=== PATIENT | female | born 1985 | race Caucasian/White ===

== ENCOUNTER 2020-06-27 11:57 | Emergency (ER) | payer OTHER, SELFPAY ==
[2020-06-27 12:05] VITALS: BP 126/82; PULSE 95
[2020-06-27 12:12] VITALS: BP 124/70; PULSE 88; RESP 18; TEMP 37.1; O2SAT 96; BMI 24.0
--- NOTE | 2020-06-27 12:15 | ED.PSYCH ---
HPI - Psych General Chief Complaint: Psychiatric Symptoms Stated Complaint: crisis Time Seen by Provider: 06/27/20 12:07 Source: EMS Mode of arrival: EMS Limitations: no limitations History of Present Illness HPI Narrative: 31-year-old female who reports history of anxiety and depression who was feeling increasingly depressed and suicidal for weeks ago at that time made Facebook post on her status in regards to this 4 weeks ago and at that time she felt like she was going to stab herself but she did not instead she called the crisis team which she is familiar with and at that time she was sent to respite she has been doing well at home today she noticed that somebody was making fun of her status on Facebook and she confronted individuals online and she states that this was interpreted as her being suicidal today which she is not given today is [place]. She states occasional alcohol use but no illicit substance. Denies any suicidal ideations at this time. She does report has a habit of cutting for stress relief and usually is in lines of scratching with her nails either her in her wrist or connor area. States she has not done this in several weeks. States has not attempted anything else to harm herself. complaint: anxiety Onset (ago): day(s) Relieving factors: none Exacerbating factors: other (Social media) Associated psychiatric symptoms: none Treatments prior to arrival: none Related Data Allergies Allergy/AdvReac Type Severity Reaction Status Date / Time fluconazole [Diflucan] Allergy Unknown rash Verified 12/04/18 00:00 No Known Allergies Allergy Unverified 12/11/19 15:47 Review of Systems Review of Systems: Constitutional: No Weight loss, No Fever, No Chills, No Night Sweats, No Fatigue, No Malaise ENT/Mouth: No Hearing loss, No Ear Pain, No Nasal Congestion, No Sinus Pain, No Hoarseness, No sore throat, No Rhinorrhea, No Swallowing Difficulty Eyes: No Eye Pain, No Swelling, No Redness, No Foreign Body, No Discharge, No Vision Changes Cardiovascular: No Chest Pain, No SOB, No Dyspnea on Exertion, No Orthopnea, No Edema, No Palpitations Respiratory: No Cough, No Sputum, No Wheezing, No Smoke Exposure, No Dyspnea Gastrointestinal: No Nausea, No Vomiting, No Diarrhea, No Constipation, No abdominal Pain, No Hematochezia, No Melena Genitourinary: no irregular bleeding, No Dysuria, No Urinary Frequency, No Hematuria, No Urinary Incontinence, No Urgency, No Flank Pain, No Urinary Flow Changes, No Hesitancy Musculoskeletal: No joint pain, No Myalgias, No Joint Swelling Skin: No Skin Lesions, No rash Neuro: No Weakness, No Numbness, No Paresthesias, No Loss of Consciousness, No Dizziness, No Headache Psych: + Anxiety/Panic, No Depression, No SI/HI/AH/VH Heme/Lymph: No Bruising, No Bleeding,No Lymphadenopathy Endocrine: No Polyuria, No Polydipsia, No Temperature Intolerance Yes all other systems are reviewed and are negative [facility] Past Medical History Medical History Anxiety Depression Social History Social History Alcohol intake: current Smoking Status: Current every day smoker Use of substances other than those prescribed or required for medical reasons: No Advance Directives: No Advance Directives Information Provided: No Physical Exam Vital Signs: Vital Signs: Last Vital Signs Temp 98.7 F 06/27/20 12:12 Pulse 88 06/27/20 12:12 Resp 18 06/27/20 12:12 BP 124/70 06/27/20 12:12 Pulse Ox 96 06/27/20 12:12 Body Mass Index 24.0 Reviewed Const: General: cooperative, healthy appearing and anxious; No acute distress or intoxicated appearing Nutritional Appearance: average body habitus Orientation/consciousness: patient oriented x3 HENMT: Head: Yes normal to inspection Ears: hearing grossly normal bilaterally Eyes: General: appearance normal, both eyes and all related structures Visual Zamora: normal visual zamora by confrontation Neck: Neck: Yes normal visual inspection, No positive Brudzinski's sign, No positive Kernig's sign and No tender Thyroid: Thyroid normal Chest: Chest palpation & inspection: normal inspection of the chest Resp: Effort & Inspection: normal respiratory effort Auscultation: clear to auscultation bilaterally Cardio: Jugular venous distension: no JVD Rhythm: regular rhythm Heart sounds: S1 normal heart sound present and S2 normal heart sound present GI: Inspection: Yes normal to inspection Palpation (GI): Soft to palpation Percussion: Yes normal to percussion Auscultation: normal bowel sounds : General: Yes no CVA tenderness Back/Spine/Pelvis: Back: no CVA tenderness Skin: General skin exam: no rashes or lesions noted Neuro: General: patient oriented x3 Extrem: General: Yes normal to inspection Course Reevaluation(s) Reevaluation #1: 1211 Tearful and regretful that this is happening to her given today's Easter and she had plans with her boyfriend. She denies any SI or HI. States she was suicidal in the past when she made those statements 4 weeks ago on Facebook and today her statements were misinterpreted. She is familiar with the crisis team. She is tearful and calm and cooperative forthcoming. Given this and her history will go ahead and do medical screening labs and obtain crisis evaluation. She offers no medical complaints. Plan of care reviewed and agreeable. Reevaluation #2: U tox positive for opiate, cocaine and ethanol of 32. Chemistries with nonspecific hyperkalemia at 10.5 she offers no other complaints. Has been sleeping resting comfortably. Eight. Cleared for psychiatric evaluation. 1530 At this time patient placed on physician observation pending crisis evaluation. VSs, NAD, PVD. Com cooperative. Reevaluation #3: Evaluate by the care team set up with outpatient services. Cleared for discharge. No SI or HI. Physician observation has ended at this time. Patient will be set up with outpatient services she is comfortable with plan. Denies any SI or HI she is future oriented. Stable for discharge. MDM - Psych Lab Data Result diagrams: 06/27/20 12:55 06/27/20 12:55 Labs: Lab Results 06/27/20 06/27/20 06/27/20 Range/Units 12:55 12:55 12:55 WBC 7.3 (4.8-10.8) X10*3/uL RBC 4.28 (4.20-5.50) X10*6/uL Hgb 13.0 (12.0-16.0) g/dl Hct 37.9 (37-47) % MCV 88.6 (80-98) fL MCH 30.4 (27.0-33.0) pg MCHC 34.3 (31.0-35.0) g/dl RDW 13.2 (11.0-16.0) % Plt Count 375 (160-400) X10*3/uL MPV 9.4 (9.4-12.3) fL Immature Gran % (Auto) 0.3 (0.0-0.4) % Neut % (Auto) 68.1 (45-73) % Lymph % (Auto) 21.5 (20-40) % [place] % (Auto) 7.0 (2-11) % Eos % (Auto) 2.6 (0-4) % Baso % (Auto) 0.5 (0-2) % Lymph # (Auto) 1.6 (1.2-4.9) X10*3/uL [place] # (Auto) 0.5 (0.1-1.2) X10*3/uL Eos # (Auto) 0.2 (0.0-0.4) X10*3/uL Baso # (Auto) 0.0 (0.0-0.2) X10*3/uL Abs Immat Gran (auto) 0.02 (0.00-0.03) X10*3/uL Absolute Neuts (auto) 5.0 (2.0-8.3) X10*3/uL Absolute Nucleated RBC 0.000 (0.0-0.012) X10*3/uL Nucleated RBC % (auto) 0.0 (0.0-0.2) /100WBC Sodium 137 (135-145) mmol/L Potassium 3.6 (3.3-5.1) mmol/L Chloride 91 L (96-108) mmol/L Carbon Dioxide 36 H (22-29) mmol/L Anion Gap 14 (12-20) BUN 4 L (9-16) mg/dL Creatinine 0.65 (0.5-1.4) mg/dL Estim Creat Clear Calc 106.3 Estimated GFR > 60 Random Glucose 117 H (60-115) mg/dL Calcium 10.5 H (8.4-10.2) mg/dL Total Bilirubin 0.2 (0.0-1.0) mg/dL AST 25 (5-31) U/L ALT 26 (0-31) U/L Alkaline Phosphatase 117 (39-117) U/L Total Protein 6.1 L (6.5-8.0) g/dL Albumin 3.7 (3.5-5.0) g/dL Urine Test (NEGATIVE) Urine Opiates Screen (Not Detect) Ur Barbiturates Screen (Not Detect) Ur Phencyclidine Scrn (Not Detect) Ur Amphetamines Screen (Not Detect) U Benzodiazepines Scrn (Not Detect) Urine Cocaine Screen (Not Detect) U Marijuana (THC) Screen (Not Detect) Ethyl Alcohol 32 mg/dL 06/27/20 06/27/20 Range/Units 12:55 12:55 WBC (4.8-10.8) X10*3/uL RBC (4.20-5.50) X10*6/uL Hgb (12.0-16.0) g/dl Hct (37-47) % MCV (80-98) fL MCH (27.0-33.0) pg MCHC (31.0-35.0) g/dl RDW (11.0-16.0) % Plt Count (160-400) X10*3/uL MPV (9.4-12.3) fL Immature Gran % (Auto) (0.0-0.4) % Neut % (Auto) (45-73) % Lymph % (Auto) (20-40) % [place] % (Auto) (2-11) % Eos % (Auto) (0-4) % Baso % (Auto) (0-2) % Lymph # (Auto) (1.2-4.9) X10*3/uL [place] # (Auto) (0.1-1.2) X10*3/uL Eos # (Auto) (0.0-0.4) X10*3/uL Baso # (Auto) (0.0-0.2) X10*3/uL Abs Immat Gran (auto) (0.00-0.03) X10*3/uL Absolute Neuts (auto) (2.0-8.3) X10*3/uL Absolute Nucleated RBC (0.0-0.012) X10*3/uL Nucleated RBC % (auto) (0.0-0.2) /100WBC Sodium (135-145) mmol/L Potassium (3.3-5.1) mmol/L Chloride (96-108) mmol/L Carbon Dioxide (22-29) mmol/L Anion Gap (12-20) BUN (9-16) mg/dL Creatinine (0.5-1.4) mg/dL Estim Creat Clear Calc Estimated GFR Random Glucose (60-115) mg/dL Calcium (8.4-10.2) mg/dL Total Bilirubin (0.0-1.0) mg/dL AST (5-31) U/L ALT (0-31) U/L Alkaline Phosphatase (39-117) U/L Total Protein (6.5-8.0) g/dL Albumin (3.5-5.0) g/dL Urine Test NEGATIVE (NEGATIVE) Urine Opiates Screen POSITIVE H (Not Detect) Ur Barbiturates Screen Not Detected (Not Detect) Ur Phencyclidine Scrn Not Detected (Not Detect) Ur Amphetamines Screen Not Detected (Not Detect) U Benzodiazepines Scrn Not Detected (Not Detect) Urine Cocaine Screen POSITIVE H (Not Detect) U Marijuana (THC) Screen Not Detected (Not Detect) Ethyl Alcohol mg/dL Discharge Plan Discharge Clinical Impression: Acute anxiety Alcohol intoxication Qualifiers: Complication of substance-induced condition: uncomplicated Qualified Code(s): F10.920 - Alcohol use, unspecified with intoxication, uncomplicated Patient Disposition: Home, Self-Care Instructions: Alcohol Intoxication (ED), Anxiety (ED) Additional Instructions: Follow-up with outpatient providers tomorrow Return if any concerns or worsening symptoms Thank you Referrals: Carlee Dubois MD [Primary Care Provider] - 2 days
--- NOTE | 2020-06-27 12:33 | PC.NURSE ---
PATIENT BELONGINGS IN LAUNDRY ROOM
--- NOTE | 2020-06-27 12:49 | PC.NURSE ---
faxed and called [facility]
[2020-06-27 13:04] LABS: MANUAL DIFF FLAG NO
[2020-06-27 13:14] LABS: Basophils Percent Auto 0.5 % (0-2); Eosinophils Absolute Auto 0.2 X10*3/uL (0.0-0.4); Eosinophils Percent Auto 2.6 % (0-4); Hematocrit 37.9 % (37-47); Imm Gran Abs Auto 0.02 X10*3/uL (0.00-0.03); Imm Gran Pct Auto 0.3 % (0.0-0.4); Lymphocytes Absolute Auto 1.6 X10*3/uL (1.2-4.9); Lymphocytes Percent Auto 21.5 % (20-40); Mean Corpuscular HGB Conc 34.3 g/dl (31.0-35.0); Mean Corpuscular Hemoglobin 30.4 pg (27.0-33.0); Mean Corpuscular Volume 88.6 fL (80-98); Mean Platelet Volume 9.4 fL (9.4-12.3); Monocytes Absolute Auto 0.5 X10*3/uL (0.1-1.2); Neutrophils Percent Auto 68.1 % (45-73); Platelet Count 375 X10*3/uL (160-400); Red Blood Count 4.28 X10*6/uL (4.20-5.50); Red Cell Distribution Width 13.2 % (11.0-16.0); White Blood Count 7.3 X10*3/uL (4.8-10.8)
[2020-06-27 13:20] LABS: UPreg QC Valid YES; Urine Pregnancy NEGATIVE (NEGATIVE)
[2020-06-27 13:24] LABS: Ethanol 32 mg/dL
[2020-06-27 13:26] LABS: Amphetamine Screen Urine Not Detected (Not Detect); Barbiturates, Urine Not Detected (Not Detect); Benzodiazepines Screen Urine Not Detected (Not Detect); Cannabinoid Screen Urine Not Detected (Not Detect); Cocaine Screen Urine POSITIVE (Not Detect); Opiate Screen Urine POSITIVE (Not Detect); Phencyclidine Screen Urine Not Detected (Not Detect)
[2020-06-27 14:02] LABS: Alanine Aminotransferase 26 U/L (0-31); Albumin Level 3.7 g/dL (3.5-5.0); Alkaline Phosphatase 117 U/L (39-117); Anion Gap 14 (12-20); Aspartate Amino Transferase 25 U/L (5-31); Bilirubin Total 0.2 mg/dL (0.0-1.0); Blood Urea Nitrogen 4 mg/dL (9-16); Carbon Dioxide 36 mmol/L (22-29); Chloride 91 mmol/L (96-108); Creatinine Clr Calc Pharmacy 106.3; Estimated Glomerular Filt Rate > 60; Glucose Random 117 mg/dL (60-115); Potassium 3.6 mmol/L (3.3-5.1); Sodium 137 mmol/L (135-145); Total Protein 6.1 g/dL (6.5-8.0)
[2020-06-27 14:08] LABS: Calcium 10.5 mg/dL (8.4-10.2)
[2020-06-27 16:00] VITALS: RESP 16
--- NOTE | 2020-06-27 16:15 | PC.NURSE ---
awaiting n intake to call back per guy they now have pt info after x 4 fax confirmations
--- NOTE | 2020-06-27 16:38 | PC.NURSE ---
spoke with [facility], wandy states this was intake and will call back with possible eta for eval
--- NOTE | 2020-06-27 17:46 | MHC.CARE ---
CARE team contacted [facility] to follow up on referral faxed earlier this afternoon for pt who was brought to ED for concerns of suicidality. [facility] unable to provide a clinician for evaluation until 3rd shift, therefore this became a CARE team takeover. This senior grant writer met with pt in ED 22H. Pt was tearful and expressing frustration with being in the ED all afternoon after wanting to spend Easter with her boyfriend and to be able to call her children. Pt reported that she had learned that people were making fun of her a few weeks ago when she expressed that she was feeling low and suicidal, and made a status on social media this morning about not appreciating being made fun of when she's at her lowest low and feeling suicidal. Pt stated that this wasn't how she is feeling currently and that she was reflecting on her state of mind at that time. Pt reported that she had been in detox and from detox she went to respite after contacting [facility] endorsing active suicidality with plan to cut self with scissors. After respite, pt went to a short term [facility] program and has since returned home. Pt relapsed shortly after and is currently planning to self present to [facility] to check self in for another admission. Pt stated that she lives with her boyfriend who is almost 4 years clean, that he is aware of the relapse, and is supportive of pt getting treatment and into recovery. Pt denied experiencing any current thoughts of suicide, however she was having passive thoughts 2 days ago after she got stuck in (my) own head. Pt feels safe to return home and is advocating for discharge so that she can spend some of Easter with her family. This senior grant writer consulted with ED provider re: assessment, with plan of care for discharge home and plan to follow up with [facility] in the morning.
--- NOTE | 2020-06-27 17:59 | PC.NURSE ---
spoke with care team, pt to fl home
== END 2020-06-27 18:01 | disposition home or self-care (01) ==
PROVIDERS: Nurse Practitioner Primary Care; Emergency Provider Internal Medicine; PCP Internal Medicine
DX: F41.9 Anxiety disorder, unspecified (principal); F10.920 Alcohol use, unspecified with intoxication, uncomplicated; Y90.1 Blood alcohol level of 20-39 mg/100 ml; F32.9 Major depressive disorder, single episode, unspecified; R45.851 Suicidal ideations; F17.200 Nicotine dependence, unspecified, uncomplicated; F11.90 Opioid use, unspecified, uncomplicated; F14.90 Cocaine use, unspecified, uncomplicated; Z91.5 Personal history of self-harm
CPT/HCPCS: 36415; 80053; 80307; 80320; 81025; 85025; 99285

== ENCOUNTER 2020-07-01 09:46 | Emergency (ER) | payer OTHER, SELFPAY ==
--- NOTE | ~2020-07-01 | US_ITS ---
EXAMINATION: US DIAGNOSTIC ULTRASOUND BREAST, RIGHT US DIAGNOSTIC ULTRASOUND BREAST, LEFT CLINICAL INFORMATION: 34-year-old in ED with pain at IV injection site upper extremity. Erythema breasts. Assess for occult abscess. COMPARISON: Left lower extremity venous ultrasound with Doppler 07/01/2020, targeted left breast ultrasound 05/30/2017, bilateral diagnostic digital breast tomosynthesis 05/30/2017. TECHNIQUE: Ultrasound of each breast is targeted to the areas of clinical concern using grayscale imaging and color Doppler. Right breast is targeted to the outer quadrant approximately 9:00 position and 2 areas targeted on left 9:00 position and 10:00 position. Exam performed emergently at the hospital and [facility] FINDINGS: Right: There is no focal suspicious finding. There is no cystic or solid mass, architectural abnormality, duct ectasia, or edema in the soft tissue planes. No hyperemia on color Doppler. No visible abscess Left: There is no focal suspicious finding. There is no cystic or solid mass, architectural abnormality, duct ectasia, or edema in the soft tissue planes. No hyperemia on color Doppler. No visible abscess US/US breast LT limited IMPRESSION: Unremarkable bilateral targeted breast ultrasound. ASSESSMENT: BI-RADS 1: Negative RECOMMENDATION: 1. Patient should be managed based on the clinical impression. 2. Otherwise, routine annual screening mammography, beginning age 40, or earlier as clinical risk factors warrant. This patient's information was entered into a reminder system with a target due date for their next mammogram.
--- NOTE | ~2020-07-01 | US_ITS ---
EXAMINATION: US VENOUS ULTRASOUND WITH DOPPLER LOWER EXTREMITY, LEFT CLINICAL INFORMATION: Pain COMPARISON: None TECHNIQUE: Ultrasound of the deep veins is performed from the hip to the calf with compression sonography and color and pulse Doppler assessment. Spectral analysis with color-flow imaging is performed. FINDINGS: There is normal venous compression and respiratory variation and augmented flow. The visualized common femoral vein, superficial femoral vein, profunda femoral vein, popliteal vein, and the trifurcation region shows no evidence of deep venous thrombosis. There is no significant popliteal fossa cyst. . If the patient's symptoms persist, followup ultrasound in 5 days 7 days might be of value to exclude proximal propagation from a non-visualized calf vein. US/US venous duplex LE LT IMPRESSION: No DVT demonstrated in the left lower extremity.
--- NOTE | ~2020-07-01 | US_ITS ---
EXAMINATION: US DIAGNOSTIC ULTRASOUND BREAST, RIGHT US DIAGNOSTIC ULTRASOUND BREAST, LEFT CLINICAL INFORMATION: 34-year-old in ED with pain at IV injection site upper extremity. Erythema breasts. Assess for occult abscess. COMPARISON: Left lower extremity venous ultrasound with Doppler 07/01/2020, targeted left breast ultrasound 05/30/2017, bilateral diagnostic digital breast tomosynthesis 05/30/2017. TECHNIQUE: Ultrasound of each breast is targeted to the areas of clinical concern using grayscale imaging and color Doppler. Right breast is targeted to the outer quadrant approximately 9:00 position and 2 areas targeted on left 9:00 position and 10:00 position. Exam performed emergently at the hospital and [facility] FINDINGS: Right: There is no focal suspicious finding. There is no cystic or solid mass, architectural abnormality, duct ectasia, or edema in the soft tissue planes. No hyperemia on color Doppler. No visible abscess Left: There is no focal suspicious finding. There is no cystic or solid mass, architectural abnormality, duct ectasia, or edema in the soft tissue planes. No hyperemia on color Doppler. No visible abscess US/US breast RT limited IMPRESSION: Unremarkable bilateral targeted breast ultrasound. ASSESSMENT: BI-RADS 1: Negative RECOMMENDATION: 1. Patient should be managed based on the clinical impression. 2. Otherwise, routine annual screening mammography, beginning age 40, or earlier as clinical risk factors warrant. This patient's information was entered into a reminder system with a target due date for their next mammogram.
[2020-07-01 10:09] VITALS: BP 151/91; PULSE 101; RESP 16; TEMP 36.6; O2SAT 97; BMI 26.4
--- NOTE | 2020-07-01 10:18 | ED.SKABFB ---
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 MD complaint: lesion and discoloration Onset (ago): day(s) (2) Tetanus up to date: yes Location: chest (both lateral breasts) and LLE Severity: moderate Quality: aching Pain Consistency: constant Relieving factors: none Exacerbating factors: none Context: IVDA (at those sites) Associated symptoms: nausea Treatments prior to arrival: none Related Data Previous Rx's Medication Instructions Recorded cephalexin 500 mg PO BID 7 Days #14 cap 07/01/20 doxycycline hyclate 100 mg PO BID 7 Days #14 cap 07/01/20 Allergies Allergy/AdvReac Type Severity Reaction Status Date / Time fluconazole [Diflucan] Allergy Unknown rash Verified 12/04/18 00:00 No Known Allergies Allergy Unverified 12/11/19 15:47 Review of Systems Review of Systems: Constitutional : No Fever, No Chills ENT/Mouth : No sore throat, No Rhinorrhea Eyes: No Eye Pain, No Swelling, No Redness Cardiovascular : No Chest Pain, No SOB Respiratory : No Cough, No Sputum Gastrointestinal : pos Nausea, No Vomiting, No Diarrhea, No abdominal Pain Genitourinary : No Dysuria, No Hematuria Musculoskeletal : No joint pain, No Myalgias, No Joint Swelling Skin : pos Skin Lesions, positive skin rash Neuro : No Weakness, No Numbness, No Headache Psych : No Anxiety, No Depression Heme/Lymph: No Bruising, No Bleeding,No Lymphadenopathy Endocrine : No Polyuria, No Polydipsia All other systems reviewed and are negative PMFSH Past Medical History Attestation statement: The following information was validated with the patient. Medical History Anxiety Depression Social History Social History (Updated 07/01/20 @ 10:25 by Jaylyn Marcos DO) Alcohol intake: current Smoking Status: Current every day smoker Use of substances other than those prescribed or required for medical reasons: Yes Substance Use Type: Crack/Cocaine, Heroin and IV Drugs Advance Directives: No Advance Directives Information Provided: No Physical Exam Vital Signs: Vital Signs: Last Vital Signs Temp 97.8 F 07/01/20 10:09 Pulse 72 07/01/20 13:16 Resp 18 07/01/20 13:16 BP 91/52 L 07/01/20 13:16 Pulse Ox 92 07/01/20 13:16 Body Mass Index 26.4 Appearance: Alert. Oriented X3. No acute distress. Eyes: Pupils equal, round and reactive to light. ENT: Pharynx normal. Neck: Normal inspection. Neck supple. CVS: Normal heart rate and rhythm. Pulses normal. Chest: both lateral breasts injection site no obvious abscess but hematoma noted bilaterally, very mild erythema and warmth Respiratory: No respiratory distress. Breath sounds normal. Abdomen: Soft and nontender. Skin: Skin warm and dry. Normal skin color. Normal skin turgor. Extremities: No lower extremity edema. L posterior pop fossa no abscess noted but injection site seen with hematoma - no signs of cellulitis Neuro: Oriented X 3. No motor deficit. No sensory deficit. Course Course Course Narrative: prior to DC patient made vague SI statements will have her seen by BHN, repleted potassium, PO cephalexin and doxy ordered x 1 Patient placed in physician observation at 137pm. The indication for observation is that the patient needs more time to see if their depression improves or they will need to be admitted after BHN consult. At this time the patient is well developed well nourished, lungs clear, CV RRR, abd nontender, neuro is intact. VS stable, medicall cleared for BHN after repeat discussion the pateint adamantly denies SI she states she was confused at the time but denies any intention of self harm, she denied this as well on initial arrival, there was likely confusion between patient and RN I went in and spoke to the patient again with RN and she states she was sleeping and confused and adamantly denies self harm. Physician observation ended at 307pm. Patient denied SI deemed no need for crisis Plan is to follow up on her own for detox. NAD, lungs clear, CV RRR, Abd nontender, Neuro intact. Disposition is for home. MDM - Skin/Abscess/Foreign Bdy MDM Narrative Medical decision making narrative: 34 yo female with hx of IVDA injecting in posterior left leg as well as both breasts, no sig cellulitis but mild erythema - will obtain labs, PO ativan for anxiety, US of leg and breasts for abscess and DVT - patient refused recovery coaches and suboxon Lab Data Result diagrams: 07/01/20 10:46 07/01/20 10:46 Labs: Lab Results 07/01/20 07/01/20 07/01/20 Range/Units 10:46 10:46 10:46 WBC 7.0 (4.8-10.8) X10*3/uL RBC 4.35 (4.20-5.50) X10*6/uL Hgb 13.4 (12.0-16.0) g/dl Hct 39.2 (37-47) % MCV 90.1 (80-98) fL MCH 30.8 (27.0-33.0) pg MCHC 34.2 (31.0-35.0) g/dl RDW 15.0 (11.0-16.0) % Plt Count 403 H (160-400) X10*3/uL MPV 9.1 L (9.4-12.3) fL Immature Gran % (Auto) 0.1 (0.0-0.4) % Neut % (Auto) 72.3 (45-73) % Lymph % (Auto) 17.9 L (20-40) % [place] % (Auto) 6.7 (2-11) % Eos % (Auto) 2.6 (0-4) % Baso % (Auto) 0.4 (0-2) % Lymph # (Auto) 1.3 (1.2-4.9) X10*3/uL [place] # (Auto) 0.5 (0.1-1.2) X10*3/uL Eos # (Auto) 0.2 (0.0-0.4) X10*3/uL Baso # (Auto) 0.0 (0.0-0.2) X10*3/uL Abs Immat Gran (auto) 0.01 (0.00-0.03) X10*3/uL Absolute Neuts (auto) 5.1 (2.0-8.3) X10*3/uL Absolute Nucleated RBC 0.000 (0.0-0.012) X10*3/uL Nucleated RBC % (auto) 0.0 (0.0-0.2) /100WBC PT 11.2 (10.8-13.0) SEC INR 0.9 (0.9-1.1) APTT 31.5 (24.1-38.0) SEC Sodium 137 (135-145) mmol/L Potassium 2.9 L (3.3-5.1) mmol/L Chloride 96 (96-108) mmol/L Carbon Dioxide 28 (22-29) mmol/L Anion Gap 16 (12-20) BUN 7 L D (9-16) mg/dL Creatinine 0.68 (0.5-1.4) mg/dL Estim Creat Clear Calc 100.4 Estimated GFR > 60 Random Glucose 92 (60-115) mg/dL Lactic Acid (0.5-2.0) mmol/L Calcium 8.6 D (8.4-10.2) mg/dL Total Bilirubin 0.5 (0.0-1.0) mg/dL Direct Bilirubin 0.3 (0.0-0.5) mg/dL AST 56 H (5-31) U/L ALT 37 H (0-31) U/L Alkaline Phosphatase 141 H D (39-117) U/L Total Protein 6.6 (6.5-8.0) g/dL Albumin 3.9 (3.5-5.0) g/dL COVID-19 (FUAD) (Negative) COVID-19 Clin Com 07/01/20 07/01/20 Range/Units 10:47 13:58 WBC (4.8-10.8) X10*3/uL RBC (4.20-5.50) X10*6/uL Hgb (12.0-16.0) g/dl Hct (37-47) % MCV (80-98) fL MCH (27.0-33.0) pg MCHC (31.0-35.0) g/dl RDW (11.0-16.0) % Plt Count (160-400) X10*3/uL MPV (9.4-12.3) fL Immature Gran % (Auto) (0.0-0.4) % Neut % (Auto) (45-73) % Lymph % (Auto) (20-40) % [place] % (Auto) (2-11) % Eos % (Auto) (0-4) % Baso % (Auto) (0-2) % Lymph # (Auto) (1.2-4.9) X10*3/uL [place] # (Auto) (0.1-1.2) X10*3/uL Eos # (Auto) (0.0-0.4) X10*3/uL Baso # (Auto) (0.0-0.2) X10*3/uL Abs Immat Gran (auto) (0.00-0.03) X10*3/uL Absolute Neuts (auto) (2.0-8.3) X10*3/uL Absolute Nucleated RBC (0.0-0.012) X10*3/uL Nucleated RBC % (auto) (0.0-0.2) /100WBC PT (10.8-13.0) SEC INR (0.9-1.1) APTT (24.1-38.0) SEC Sodium (135-145) mmol/L Potassium (3.3-5.1) mmol/L Chloride (96-108) mmol/L Carbon Dioxide (22-29) mmol/L Anion Gap (12-20) BUN (9-16) mg/dL Creatinine (0.5-1.4) mg/dL Estim Creat Clear Calc Estimated GFR Random Glucose (60-115) mg/dL Lactic Acid 0.8 (0.5-2.0) mmol/L Calcium (8.4-10.2) mg/dL Total Bilirubin (0.0-1.0) mg/dL Direct Bilirubin (0.0-0.5) mg/dL AST (5-31) U/L ALT (0-31) U/L Alkaline Phosphatase (39-117) U/L Total Protein (6.5-8.0) g/dL Albumin (3.5-5.0) g/dL COVID-19 (FUAD) Negative (Negative) COVID-19 Clin Com See Note Discharge Plan Discharge Clinical Impression: Hematoma, Acute hypokalemia Cellulitis Qualifiers: Site of cellulitis: trunk Site of cellulitis of trunk: chest wall Qualified Code(s): L03.313 - Cellulitis of chest wall Depression Qualifiers: Depression Type: other depression Qualified Code(s): F32.89 - Other specified depressive episodes Patient Disposition: Home, Self-Care Instructions: Cellulitis (ED), Hematoma (ED) Additional Instructions: return to ED for any worsening symptoms or concerns Prescriptions: New doxycycline hyclate 100 mg capsule 100 mg PO BID 7 Days Qty: 14 RF: 0 cephalexin 500 mg capsule 500 mg PO BID 7 Days Qty: 14 RF: 0
[2020-07-01] MEDS: LORazepam 1 MG TABLET 2 MG PO (10:22)
[2020-07-01 10:53] LABS: MANUAL DIFF FLAG NO
[2020-07-01 10:55] LABS: Basophils Percent Auto 0.4 % (0-2); Eosinophils Absolute Auto 0.2 X10*3/uL (0.0-0.4); Eosinophils Percent Auto 2.6 % (0-4); Hematocrit 39.2 % (37-47); Hemoglobin 13.4 g/dl (12.0-16.0); Imm Gran Abs Auto 0.01 X10*3/uL (0.00-0.03); Imm Gran Pct Auto 0.1 % (0.0-0.4); Lymphocytes Absolute Auto 1.3 X10*3/uL (1.2-4.9); Lymphocytes Percent Auto 17.9 % (20-40); Mean Corpuscular HGB Conc 34.2 g/dl (31.0-35.0); Mean Corpuscular Hemoglobin 30.8 pg (27.0-33.0); Mean Corpuscular Volume 90.1 fL (80-98); Mean Platelet Volume 9.1 fL (9.4-12.3); Monocytes Absolute Auto 0.5 X10*3/uL (0.1-1.2); Monocytes Percent Auto 6.7 % (2-11); Neutrophils Absolute Auto 5.1 X10*3/uL (2.0-8.3); Neutrophils Percent Auto 72.3 % (45-73); Platelet Count 403 X10*3/uL (160-400); Red Blood Count 4.35 X10*6/uL (4.20-5.50)
[2020-07-01] MEDS: Acetaminophen 325 MG TABLET 650 MG PO (10:57)
[2020-07-01 11:02] LABS: INTERNATIONAL NORM RATIO 0.9 (0.9-1.1); Prothrombin Time 11.2 SEC (10.8-13.0)
[2020-07-01 11:04] LABS: Partial Thromboplastin Time 31.5 SEC (24.1-38.0)
[2020-07-01 11:18] LABS: Lactic Acid 0.8 mmol/L (0.5-2.0)
[2020-07-01 11:28] LABS: Alanine Aminotransferase 37 U/L (0-31); Albumin Level 3.9 g/dL (3.5-5.0); Alkaline Phosphatase 141 U/L (39-117); Anion Gap 16 (12-20); Aspartate Amino Transferase 56 U/L (5-31); Bilirubin Direct 0.3 mg/dL (0.0-0.5); Bilirubin Total 0.5 mg/dL (0.0-1.0); Blood Urea Nitrogen 7 mg/dL (9-16); Calcium 8.6 mg/dL (8.4-10.2); Carbon Dioxide 28 mmol/L (22-29); Chloride 96 mmol/L (96-108); Creatinine Clr Calc Pharmacy 100.4; Estimated Glomerular Filt Rate > 60; Glucose Random 92 mg/dL (60-115); Potassium 2.9 mmol/L (3.3-5.1); Sodium 137 mmol/L (135-145); Total Protein 6.6 g/dL (6.5-8.0)
[2020-07-01 13:16] VITALS: BP 91/52; PULSE 72; RESP 18; O2SAT 92
[2020-07-01] MEDS: Potassium Chloride ER 20 MEQ TAB.ER.PRT 60 MEQ PO (13:51)
[2020-07-01] MEDS: cephALEXin 500 MG CAPSULE PO (13:51)
[2020-07-01 14:24] LABS: COVID-19 Test Negative (Negative); IDNOW Serial# 9DD0AD1C
== END 2020-07-01 15:11 | disposition home or self-care (01) ==
PROVIDERS: Emergency Provider Emergency Medicine; PCP Internal Medicine
DX: M79.81 Nontraumatic hematoma of soft tissue (principal); L03.313 Cellulitis of chest wall; E87.6 Hypokalemia; F32.89 Other specified depressive episodes; Z20.822 Contact with and (suspected) exposure to COVID-19; F11.10 Opioid abuse, uncomplicated; F14.10 Cocaine abuse, uncomplicated; F41.9 Anxiety disorder, unspecified; F17.200 Nicotine dependence, unspecified, uncomplicated
CPT/HCPCS: 36415; 76642; 80048; 80076; 83605; 85025; 85610; 85730; 87040; 87635; 93971; 99284; 99285

== ENCOUNTER → 2020-12-09 14:02 | Outpatient (BNVA) | payer OTHER, SELFPAY | PROVIDERS: Visit Provider Advanced Practice Midwife ==

== ENCOUNTER 2021-07-15 22:39 | Emergency (ER) | payer OTHER, SELFPAY ==
[2021-07-15 22:46] VITALS: BP 145/101; PULSE 101; RESP 19; TEMP 36.3; O2SAT 98; BMI 23.0
[2021-07-16 00:01] LABS: COVID-19 Test Negative (Negative); IDNOW Serial# 55D5AD1C
[2021-07-16 00:27] LABS: Basophils Absolute Auto 0.1 X10*3/uL (0.0-0.2); Basophils Percent Auto 0.8 % (0-2); Eosinophils Absolute Auto 0.2 X10*3/uL (0.0-0.4); Eosinophils Percent Auto 2.3 % (0-4); Hematocrit 49.2 % (37.0-47.0); Hemoglobin 15.8 g/dl (12.0-16.0); Imm Gran Abs Auto 0.02 X10*3/uL (0.00-0.03); Imm Gran Pct Auto 0.3 % (0.0-0.4); Lymphocytes Absolute Auto 2.6 X10*3/uL (1.2-4.9); Lymphocytes Percent Auto 39.3 % (20-40); MANUAL DIFF FLAG NO; Mean Corpuscular HGB Conc 32.1 g/dl (31.0-35.0); Mean Corpuscular Volume 96.5 fL (80.0-98.0); Mean Platelet Volume 9.6 fL (9.4-12.3); Monocytes Absolute Auto 0.4 X10*3/uL (0.1-1.2); Monocytes Percent Auto 5.4 % (2-11); Neutrophils Absolute Auto 3.5 x10*3/uL (2.0-8.3); Neutrophils Percent Auto 51.9 % (45-73); Platelet Count 364 X10*3/uL (160-400); Red Cell Distribution Width 14.1 % (11.0-16.0); White Blood Count 6.7 X10*3/uL (4.8-10.8)
[2021-07-16 00:39] LABS: Ethanol 340 mg/dL
[2021-07-16 00:43] LABS: Alanine Aminotransferase 51 U/L (0-31); Albumin Level 4.4 g/dL (3.5-5.0); Alkaline Phosphatase 103 U/L (39-117); Anion Gap 13 (12-20); Aspartate Amino Transferase 35 U/L (5-31); Bilirubin Direct < 0.2 mg/dL (0.0-0.5); Bilirubin Total 0.2 mg/dL (0.0-1.0); Blood Urea Nitrogen 5 mg/dL (9-16); Calcium 9.5 mg/dL (8.4-10.2); Carbon Dioxide 28 mmol/L (22-29); Chloride 108 mmol/L (96-108); Creatinine Clr Calc Pharmacy 89.8; Estimated Glomerular Filt Rate > 60; Glucose Random 100 mg/dL (60-115); Magnesium 2.4 mg/dL (1.6-2.6); Potassium 4.2 mmol/L (3.3-5.1); Sodium 145 mmol/L (135-145); Total Protein 7.9 g/dL (6.5-8.0)
[2021-07-16 00:45] VITALS: RESP 20
[2021-07-16] MEDS: LORazepam 2 MG/ML VIAL IM (00:45)
[2021-07-16] MEDS: Haloperidol Lactate 5 MG/ML VIAL IM (00:45)
[2021-07-16] MEDS: diphenhydrAMINE HCL 50 MG/ML VIAL IM (00:45)
--- NOTE | 2021-07-16 00:47 | ED_ITS ---
HPI - Psych General Chief Complaint: Psychiatric Symptoms Stated Complaint: mental health concern Time Seen by Provider: 07/15/21 23:26 Source: patient and EMS Mode of arrival: EMS Limitations: no limitations History of Present Illness HPI Narrative: Patient comes to the emergency room complaining of having ?mental health issues?. Patient is intoxicated, reports having suicidal thoughts. Patient's nurse reports that the patient said ?I do not want to be alive anymore?. Patient has been tearful. complaint: suicidal ideation Related Data Home Medications Medication Instructions Recorded Confirmed copper 380 square mm intrauterine INTRAUTERINE 12/09/20 device (ParaGard T 380A) fluoxetine 10 mg capsule (Prozac) 10 mg PO DAILY 12/09/20 Previous Rx's Medication Instructions Recorded PNV 153-FA 400 mcg-om3 35 mg-dha 1 tab PO DAILY #30 tab 12/09/20 25 mg-epa 5 mg-fish oil chew tablet ( Gummies) Allergies Allergy/AdvReac Type Severity Reaction Status Date / Time fluconazole [Diflucan] Allergy Unknown rash Verified 07/15/21 22:50 No Known Allergies Allergy Verified 07/15/21 22:50 Review of Systems Review of Systems: Yes Other (Combative, making suicidal statements, uncooperative) [facility] Past Medical History Medical History (Updated 07/16/21 @ 00:54 by Mena Bustillo MD) Alcohol abuse Anxiety Depression Substance abuse Social History Social History Alcohol intake: current Patient Tobacco Use Status: Never used Tobacco Substance Use Type: Crack/Cocaine, Heroin and IV Drugs Advance Directives: No Physical Exam Vital Signs: Vital Signs: Last Vital Signs Temp 97.3 F 07/15/21 22:46 Pulse 101 H 07/15/21 22:46 Resp 20 07/16/21 05:32 BP 145/101 H 07/15/21 22:46 Pulse Ox 98 07/15/21 22:46 BMI result Body Mass Index 23.0 Const: Other: Appearance: Alert. Combative, taking her hospital gown off, throwing it at staff, pacing back and forth, making aggressive physical gestures towards the staff Eyes: Pupils equal, round and reactive to light. ENT: Pharynx normal. Neck: Normal inspection. CVS: For vital signs tachycardic Respiratory: No respiratory distress. Yelling in full sentences Abdomen: Not distended Skin: Skin normal color. Extremities: Moves all extremities Neuro: Oriented X 3. No motor deficit. No sensory deficit. Moving all extremities. No slurred speech. CN 2 through 12 grossly intact Psych: Agitated, uncooperative, yelling, provoking to staff into an argument Course Course Course Narrative: Patient's alcohol level is 340. Patient is agitated and disruptive, threatening staff with physically aggressive gestures. Staff does not feel safe. Patient was chemically restrained with Benadryl 50 mg, Ativan 2 mg and Haldol 5 mg IM [facility] health network consult pending. At this time, patient is still too intoxicated and chemically restrained. Patient is on a Section 12. Physician observation started at 00:50 Patient slept all night, no further incidents. sign out given to Dr. felton [facility] - Psych Lab Data Result diagrams: 07/16/21 00:08 07/16/21 00:08 Labs: Lab Results 07/15/21 07/16/21 07/16/21 Range/Units 23:36 00:08 00:08 WBC 6.7 (4.8-10.8) X10*3/uL RBC 5.10 (4.20-5.50) X10*6/uL Hgb 15.8 (12.0-16.0) g/dl Hct 49.2 H (37.0-47.0) % MCV 96.5 (80.0-98.0) fL MCH 31.0 (27.0-33.0) pg MCHC 32.1 (31.0-35.0) g/dl RDW 14.1 (11.0-16.0) % Plt Count 364 (160-400) X10*3/uL MPV 9.6 (9.4-12.3) fL Immature Gran % (Auto) 0.3 (0.0-0.4) % Neut % (Auto) 51.9 (45-73) % Lymph % (Auto) 39.3 (20-40) % [place] % (Auto) 5.4 (2-11) % Eos % (Auto) 2.3 (0-4) % Baso % (Auto) 0.8 (0-2) % Lymph # (Auto) 2.6 (1.2-4.9) X10*3/uL [place] # (Auto) 0.4 (0.1-1.2) X10*3/uL Eos # (Auto) 0.2 (0.0-0.4) X10*3/uL Baso # (Auto) 0.1 (0.0-0.2) X10*3/uL Abs Immat Gran (auto) 0.02 (0.00-0.03) X10*3/uL Absolute Neuts (auto) 3.5 (2.0-8.3) x10*3/uL Absolute Nucleated RBC 0.000 (0.0-0.012) X10*3/uL Nucleated RBC % (auto) 0.0 (0.0-0.2) /100WBC Sodium (135-145) mmol/L Potassium (3.3-5.1) mmol/L Chloride (96-108) mmol/L Carbon Dioxide (22-29) mmol/L Anion Gap (12-20) BUN (9-16) mg/dL Creatinine (0.5-1.4) mg/dL Estim Creat Clear Calc Estimated GFR Random Glucose (60-115) mg/dL Calcium (8.4-10.2) mg/dL Magnesium (1.6-2.6) mg/dL Total Bilirubin (0.0-1.0) mg/dL Direct Bilirubin (0.0-0.5) mg/dL AST (5-31) U/L ALT (0-31) U/L Alkaline Phosphatase (39-117) U/L Total Protein (6.5-8.0) g/dL Albumin (3.5-5.0) g/dL Ethyl Alcohol 340 H* mg/dL COVID-19 (FUAD) Negative (Negative) COVID-19 Clin Com See Note 07/16/21 Range/Units 00:08 WBC (4.8-10.8) X10*3/uL RBC (4.20-5.50) X10*6/uL Hgb (12.0-16.0) g/dl Hct (37.0-47.0) % MCV (80.0-98.0) fL MCH (27.0-33.0) pg MCHC (31.0-35.0) g/dl RDW (11.0-16.0) % Plt Count (160-400) X10*3/uL MPV (9.4-12.3) fL Immature Gran % (Auto) (0.0-0.4) % Neut % (Auto) (45-73) % Lymph % (Auto) (20-40) % [place] % (Auto) (2-11) % Eos % (Auto) (0-4) % Baso % (Auto) (0-2) % Lymph # (Auto) (1.2-4.9) X10*3/uL [place] # (Auto) (0.1-1.2) X10*3/uL Eos # (Auto) (0.0-0.4) X10*3/uL Baso # (Auto) (0.0-0.2) X10*3/uL Abs Immat Gran (auto) (0.00-0.03) X10*3/uL Absolute Neuts (auto) (2.0-8.3) x10*3/uL Absolute Nucleated RBC (0.0-0.012) X10*3/uL Nucleated RBC % (auto) (0.0-0.2) /100WBC Sodium 145 (135-145) mmol/L Potassium 4.2 D (3.3-5.1) mmol/L Chloride 108 (96-108) mmol/L Carbon Dioxide 28 (22-29) mmol/L Anion Gap 13 (12-20) BUN 5 L (9-16) mg/dL Creatinine 0.73 (0.5-1.4) mg/dL Estim Creat Clear Calc 89.8 Estimated GFR > 60 Random Glucose 100 (60-115) mg/dL Calcium 9.5 D (8.4-10.2) mg/dL Magnesium 2.4 (1.6-2.6) mg/dL Total Bilirubin 0.2 (0.0-1.0) mg/dL Direct Bilirubin < 0.2 (0.0-0.5) mg/dL AST 35 H (5-31) U/L ALT 51 H (0-31) U/L Alkaline Phosphatase 103 D (39-117) U/L Total Protein 7.9 (6.5-8.0) g/dL Albumin 4.4 (3.5-5.0) g/dL Ethyl Alcohol mg/dL COVID-19 (FUAD) (Negative) COVID-19 Clin Com Discharge Plan Discharge Clinical Impression: Substance abuse, Suicidal ideation Patient Disposition: Still a Patient Prescriptions: No Action ParaGard T 380A 380 square mm intrauterine device intrauterine 0RF fluoxetine [Prozac] 10 mg capsule 10 mg PO DAILY 0RF Gummies 400 mcg-35 mg- 25 mg-5 mg tablet,chewable 1 tab PO DAILY Qty: 30 11RF
[2021-07-16 01:00] VITALS: RESP 20
[2021-07-16 01:15] VITALS: RESP 20
[2021-07-16 01:30] VITALS: RESP 20
[2021-07-16 01:45] VITALS: RESP 20
[2021-07-16 05:32] VITALS: RESP 20
--- NOTE | 2021-07-16 05:38 | PC.NURSE ---
Patient was extremely loud and disruptive, attempted to barge out of ED POD multiple times, making assaultive gesture towards staff member, unable to redirect, provider notified ordered Ativan 2 mg IM, Benadryl 50 mg IM, and Haldol 5 mg IM, administered at 0045, patient compliant/positive effect, Patient slept through the night, no distress observed/reported, patient currently not on any medication, VSS, patient will be assessed by care team in the morning to determine whether patient needs full evaluation, will continue to monitor.
--- NOTE | 2021-07-16 06:58 | PC.NURSE ---
patient appears to remain asleep at present respirations are even and unlabored patient appears in no distress.
--- NOTE | 2021-07-16 11:24 | MHC.RECOVSUP ---
Recovery Support note: Patient is a 35 year old Mongolian speaking female who presented to [facility] ED after making SI statements while under the influence of alcohol. This process description writer met with patient prior to discharge to discuss recovery supports and treatment options. Patient reports she is familiar with the recovery supports in this area and that she does not wish to discuss this further at this time. Patient declined resources. Discussed case with CARE Team.
--- NOTE | 2021-07-16 12:19 | MHC.CARE ---
Pt seen by CARE team for risk assessment after she presents with her boyfriend to [place] ER with alcohol level of 340 and expressing suicidal ideation. Pt requesting discharge home, she denies any suicidal or homicidal ideation plan or intent, she denies any audio or visual hallucinations and does not appear to be responding to any internal stimuli currently. She reports a history of suicidal thoughts, however denies any history of attempts. She reports a history of self harming behaviors by cutting, however reports she has not cut in over 6 months. She reports her sleep is poor, however appetite is good. She reports a history of alcohol use and denies any additional substance use, however ER records reports Pt was recently seen on 07/01/21 after using cocaine and heroin IV and having possible needle sight infections. She was seen by CARE team for consult and discharge home to follow up with lissett lozada. She denies any prior inpatient psychiatric admissions and reports she was on a section 35 one year ago and was placed in [facility] in [place], [place]. She reports she was there for 47 days and this was her longest period of sobriety. Pt declined referrals to detox or hospital reading recovery teacher, however was agreeable to referral to [facility] for therapists and medication prescriber for depression. She reports she has multiple life stressors recently and admits she uses alcohol daily. She reports she is not able to recall all of details that occurred last evening due to her level of intoxication. CARE team called Pt's shanique Mckeon [phone], he reports both him and Pt were consuming alcohol last evening, he reports they recently moved back to [facility] from the [facility] and we're staying with Pt's mother unit recently getting kicked out . He reports last evening they had a discussion about their current situation as they are now living in [facility] and Pt made a suicidal I want to just end my life . He reports she has made these statements in the past on occasion, however never acted on theses thoughts and he states I have never witnessed her harm herself and we have been together for 5 years . He reports he drove her to ER last evening to get connected with outpatient providers to deal with her depression as they recently moved back to the area . He reports he feels safe taking her home and has no concerns for her safety. Pt feels safe returning home as well. Pt seen by head men's golf coach for additional resources and discharge home. Outpatient referral made to [facility] and they will follow up with Pt. This disposition is discussed with Dr. Nik Charles sap bw consultant MD and CARE team Doris Carbajal [facility] and both agreeable for discharge home with referrals to Detox and outpatient providers.
== END 2021-07-16 12:09 | disposition home or self-care (01) ==
PROVIDERS: Emergency Provider Emergency Medicine
DX: F10.129 Alcohol abuse with intoxication, unspecified (principal); Y90.8 Blood alcohol level of 240 mg/100 ml or more; Z20.822 Contact with and (suspected) exposure to COVID-19; Z79.899 Other long term (current) drug therapy; Z71.41 Alcohol abuse counseling and surveillance of alcoholic
CPT/HCPCS: 36415; 80048; 80076; 82077; 83735; 85025; 87635; 96372; 99284; 99285; J1200; J2060

== ENCOUNTER 2021-07-27 23:36 | Emergency (ER) | payer OTHER, SELFPAY ==
[2021-07-27 23:56] VITALS: BP 127/90; PULSE 96; RESP 22; TEMP 36.6; O2SAT 96; BMI 28.3
[2021-07-28] VITALS (7 sets, daily range): BP systolic 116; BP diastolic 72; PULSE 97; RESP 16–20; TEMP 36.7; O2SAT 98
[2021-07-28 00:10] LABS: Basophils Absolute Auto 0.1 X10*3/uL (0.0-0.2); Basophils Percent Auto 0.6 % (0-2); Eosinophils Absolute Auto 0.1 X10*3/uL (0.0-0.4); Eosinophils Percent Auto 1.5 % (0-4); Hematocrit 52.2 % (37.0-47.0); Hemoglobin 17.1 g/dl (12.0-16.0); Imm Gran Abs Auto 0.02 X10*3/uL (0.00-0.03); Imm Gran Pct Auto 0.2 % (0.0-0.4); Lymphocytes Absolute Auto 3.3 X10*3/uL (1.2-4.9); Lymphocytes Percent Auto 38.4 % (20-40); MANUAL DIFF FLAG NO; Mean Corpuscular HGB Conc 32.8 g/dl (31.0-35.0); Mean Corpuscular Hemoglobin 30.3 pg (27.0-33.0); Mean Corpuscular Volume 92.6 fL (80.0-98.0); Mean Platelet Volume 9.3 fL (9.4-12.3); Monocytes Absolute Auto 0.5 X10*3/uL (0.1-1.2); Monocytes Percent Auto 5.9 % (2-11); Neutrophils Absolute Auto 4.5 x10*3/uL (2.0-8.3); Neutrophils Percent Auto 53.4 % (45-73); Platelet Count 356 X10*3/uL (160-400); Red Blood Count 5.64 X10*6/uL (4.20-5.50); Red Cell Distribution Width 14.2 % (11.0-16.0); White Blood Count 8.5 X10*3/uL (4.8-10.8)
[2021-07-28] MEDS: LORazepam 2 MG/ML VIAL IM (00:10)
[2021-07-28] MEDS: diphenhydrAMINE HCL 50 MG/ML VIAL IM (00:10)
[2021-07-28] MEDS: Haloperidol Lactate 5 MG/ML VIAL IM (00:10)
--- NOTE | 2021-07-28 00:11 | ED_ITS ---
HPI - Psych General Chief Complaint: Psychiatric Symptoms Stated Complaint: SI Time Seen by Provider: 07/27/21 23:38 Source: EMS Mode of arrival: EMS Limitations: altered mental status History of Present Illness HPI Narrative: Patient comes to the emergency room via EMS. Patient is on a Section 12, escorted by police department. Patient's chief complaint is suicidal ideation. Patient was found by a bridge intoxicated, found by PD, made suicidal statements. Patient is under the influence of alcohol. Patient is aggressive, combative, not compliant, does not want to sales and service change leader. Patient tried to kick security and try eloping several times from the Behavioral Health pod, patient had to be physically and chemically restrained. Related Data Home Medications Medication Instructions Recorded Confirmed copper 380 square mm intrauterine INTRAUTERINE 12/09/20 device (ParaGard T 380A) fluoxetine 10 mg capsule (Prozac) 10 mg PO DAILY 12/09/20 Previous Rx's Medication Instructions Recorded PNV 153-FA 400 mcg-om3 35 mg-dha 1 tab PO DAILY #30 tab 12/09/20 25 mg-epa 5 mg-fish oil chew tablet ( Gummies) Allergies Allergy/AdvReac Type Severity Reaction Status Date / Time fluconazole [Diflucan] Allergy Unknown rash Verified 07/15/21 22:50 No Known Allergies Allergy Verified 07/15/21 22:50 Review of Systems Review of Systems: Yes Unobtainable due to mental status (Intoxicated) [facility] Past Medical History Medical History Alcohol abuse Anxiety Depression Substance abuse Social History Social History Alcohol intake: current Patient Tobacco Use Status: Never used Tobacco Substance Use Type: Crack/Cocaine, Heroin and IV Drugs Advance Directives: No Patient : No Physical Exam Vital Signs: Vital Signs: Last Vital Signs Temp 98 F 07/27/21 23:56 Pulse 96 07/27/21 23:56 Resp 16 07/28/21 01:10 BP 127/90 H 07/27/21 23:56 Pulse Ox 96 07/27/21 23:56 BMI result Body Mass Index 28.3 Const: Other: Appearance: Alert. Intoxicated , combative, trying to kick our staff Eyes: Pupils equal, round and reactive to light. ENT: Pharynx normal. Neck: Normal inspection. Neck supple. No lymph nodes noted. No crepitus CVS: Normal heart rate and rhythm. Pulses normal. Normal S1 and S2 Respiratory: No respiratory distress. Breath sounds normal. No Wheezing. No rales Abdomen: Soft and nontender. No rigidity. No distention. Skin: Skin warm and dry. Normal skin color. Normal skin turgor. Extremities: No lower extremity edema. No Lacerations. No Rash Neuro: Moving all extremities, cranial nerves 2-12 grossly intact Psych: Agitated, combative, soon to be chemically and physically restrained Course Course Course Narrative: Patient received IM diphenhydramine, Haldol, lorazepam and patient is physically restrained. Physical restraints were removed within 15 minutes. Patient is now sleeping Behavioral health network consult pending. Physician observation started at 00:10 Sign-out given to Dr. Mendez [facility] - Psych Lab Data Result diagrams: 07/28/21 00:04 07/28/21 00:04 Labs: Lab Results 07/28/21 07/28/21 07/28/21 Range/Units 00:04 00:04 00:04 WBC 8.5 (4.8-10.8) X10*3/uL RBC 5.64 H (4.20-5.50) X10*6/uL Hgb 17.1 H (12.0-16.0) g/dl Hct 52.2 H (37.0-47.0) % MCV 92.6 (80.0-98.0) fL MCH 30.3 (27.0-33.0) pg MCHC 32.8 (31.0-35.0) g/dl RDW 14.2 (11.0-16.0) % Plt Count 356 (160-400) X10*3/uL MPV 9.3 L (9.4-12.3) fL Immature Gran % (Auto) 0.2 (0.0-0.4) % Neut % (Auto) 53.4 (45-73) % Lymph % (Auto) 38.4 (20-40) % [place] % (Auto) 5.9 (2-11) % Eos % (Auto) 1.5 (0-4) % Baso % (Auto) 0.6 (0-2) % Lymph # (Auto) 3.3 (1.2-4.9) X10*3/uL [place] # (Auto) 0.5 (0.1-1.2) X10*3/uL Eos # (Auto) 0.1 (0.0-0.4) X10*3/uL Baso # (Auto) 0.1 (0.0-0.2) X10*3/uL Abs Immat Gran (auto) 0.02 (0.00-0.03) X10*3/uL Absolute Neuts (auto) 4.5 (2.0-8.3) x10*3/uL Absolute Nucleated RBC 0.000 (0.0-0.012) X10*3/uL Nucleated RBC % (auto) 0.0 (0.0-0.2) /100WBC Sodium 138 (135-145) mmol/L Potassium 5.5 H D (3.3-5.1) mmol/L Chloride 106 (96-108) mmol/L Carbon Dioxide 17 L (22-29) mmol/L Anion Gap 21 H (12-20) BUN 8 L D (9-16) mg/dL Creatinine 0.75 (0.5-1.4) mg/dL Estim Creat Clear Calc 93.2 Estimated GFR > 60 Random Glucose 115 (60-115) mg/dL Calcium 10.1 D (8.4-10.2) mg/dL Urine Color Urine Appearance Urine pH (5.0-8.0) Ur Specific [place] (1.005-1.025) Urine Protein (NEG-TRACE) MG/DL Urine Glucose (UA) (NEG) MG/DL Urine Ketones (NEG) MG/DL Urine Blood (NEG) Urine Nitrite (NEG) Ur Leukocyte Esterase (NEG) Urine Test (NEGATIVE) Urine Opiates Screen (Not Detect) Urine Fentanyl Screen (Not Detect) Ur Barbiturates Screen (Not Detect) Ur Phencyclidine Scrn (Not Detect) Ur Amphetamines Screen (Not Detect) U Benzodiazepines Scrn (Not Detect) Urine Cocaine Screen (Not Detect) U Marijuana (THC) Screen (Not Detect) Ethyl Alcohol 353 H* mg/dL COVID-19 (FUAD) (Negative) COVID-19 Clin Com 07/28/21 07/28/21 07/28/21 Range/Units 00:09 00:09 00:09 WBC (4.8-10.8) X10*3/uL RBC (4.20-5.50) X10*6/uL Hgb (12.0-16.0) g/dl Hct (37.0-47.0) % MCV (80.0-98.0) fL MCH (27.0-33.0) pg MCHC (31.0-35.0) g/dl RDW (11.0-16.0) % Plt Count (160-400) X10*3/uL MPV (9.4-12.3) fL Immature Gran % (Auto) (0.0-0.4) % Neut % (Auto) (45-73) % Lymph % (Auto) (20-40) % [place] % (Auto) (2-11) % Eos % (Auto) (0-4) % Baso % (Auto) (0-2) % Lymph # (Auto) (1.2-4.9) X10*3/uL [place] # (Auto) (0.1-1.2) X10*3/uL Eos # (Auto) (0.0-0.4) X10*3/uL Baso # (Auto) (0.0-0.2) X10*3/uL Abs Immat Gran (auto) (0.00-0.03) X10*3/uL Absolute Neuts (auto) (2.0-8.3) x10*3/uL Absolute Nucleated RBC (0.0-0.012) X10*3/uL Nucleated RBC % (auto) (0.0-0.2) /100WBC Sodium (135-145) mmol/L Potassium (3.3-5.1) mmol/L Chloride (96-108) mmol/L Carbon Dioxide (22-29) mmol/L Anion Gap (12-20) BUN (9-16) mg/dL Creatinine (0.5-1.4) mg/dL Estim Creat Clear Calc Estimated GFR Random Glucose (60-115) mg/dL Calcium (8.4-10.2) mg/dL Urine Color Urine Appearance Urine pH (5.0-8.0) Ur Specific [place] (1.005-1.025) Urine Protein (NEG-TRACE) MG/DL Urine Glucose (UA) (NEG) MG/DL Urine Ketones (NEG) MG/DL Urine Blood (NEG) Urine Nitrite (NEG) Ur Leukocyte Esterase (NEG) Urine Test NEGATIVE (NEGATIVE) Urine Opiates Screen Not Detected (Not Detect) Urine Fentanyl Screen Not Detected (Not Detect) Ur Barbiturates Screen Not Detected (Not Detect) Ur Phencyclidine Scrn Not Detected (Not Detect) Ur Amphetamines Screen Not Detected (Not Detect) U Benzodiazepines Scrn Not Detected (Not Detect) Urine Cocaine Screen Not Detected (Not Detect) U Marijuana (THC) Screen Not Detected (Not Detect) Ethyl Alcohol mg/dL COVID-19 (FUAD) Negative (Negative) COVID-19 Clin Com See Note 07/28/21 Range/Units 00:09 WBC (4.8-10.8) X10*3/uL RBC (4.20-5.50) X10*6/uL Hgb (12.0-16.0) g/dl Hct (37.0-47.0) % MCV (80.0-98.0) fL MCH (27.0-33.0) pg MCHC (31.0-35.0) g/dl RDW (11.0-16.0) % Plt Count (160-400) X10*3/uL MPV (9.4-12.3) fL Immature Gran % (Auto) (0.0-0.4) % Neut % (Auto) (45-73) % Lymph % (Auto) (20-40) % [place] % (Auto) (2-11) % Eos % (Auto) (0-4) % Baso % (Auto) (0-2) % Lymph # (Auto) (1.2-4.9) X10*3/uL [place] # (Auto) (0.1-1.2) X10*3/uL Eos # (Auto) (0.0-0.4) X10*3/uL Baso # (Auto) (0.0-0.2) X10*3/uL Abs Immat Gran (auto) (0.00-0.03) X10*3/uL Absolute Neuts (auto) (2.0-8.3) x10*3/uL Absolute Nucleated RBC (0.0-0.012) X10*3/uL Nucleated RBC % (auto) (0.0-0.2) /100WBC Sodium (135-145) mmol/L Potassium (3.3-5.1) mmol/L Chloride (96-108) mmol/L Carbon Dioxide (22-29) mmol/L Anion Gap (12-20) BUN (9-16) mg/dL Creatinine (0.5-1.4) mg/dL Estim Creat Clear Calc Estimated GFR Random Glucose (60-115) mg/dL Calcium (8.4-10.2) mg/dL Urine Color YELLOW Urine Appearance CLEAR Urine pH 6.0 (5.0-8.0) Ur Specific [place] <= 1.005 (1.005-1.025) Urine Protein NEG (NEG-TRACE) MG/DL Urine Glucose (UA) NEG (NEG) MG/DL Urine Ketones NEG (NEG) MG/DL Urine Blood NEG (NEG) Urine Nitrite NEG (NEG) Ur Leukocyte Esterase NEG (NEG) Urine Test (NEGATIVE) Urine Opiates Screen (Not Detect) Urine Fentanyl Screen (Not Detect) Ur Barbiturates Screen (Not Detect) Ur Phencyclidine Scrn (Not Detect) Ur Amphetamines Screen (Not Detect) U Benzodiazepines Scrn (Not Detect) Urine Cocaine Screen (Not Detect) U Marijuana (THC) Screen (Not Detect) Ethyl Alcohol mg/dL COVID-19 (FUAD) (Negative) COVID-19 Clin Com Discharge Plan Discharge Clinical Impression: Alcohol intoxication, Suicidal ideation Patient Disposition: Still a Patient Prescriptions: No Action ParaGard T 380A 380 square mm intrauterine device intrauterine 0RF fluoxetine [Prozac] 10 mg capsule 10 mg PO DAILY 0RF Gummies 400 mcg-35 mg- 25 mg-5 mg tablet,chewable 1 tab PO DAILY Qty: 30 11RF
[2021-07-28 00:23] LABS: Ethanol 353 mg/dL
[2021-07-28 00:32] LABS: Appearance Urine CLEAR; Color Urine YELLOW; Glucose Urine UA NEG (NEG); Leukocyte Esterase Urine NEG (NEG); Nitrite Urine NEG (NEG); Specific Gravity - Urine <= 1.005 (1.005-1.025); Urine Blood NEG (NEG); Urine Ketones NEG (NEG); Urine Protein NEG (NEG-TRACE)
[2021-07-28 00:33] LABS: UPreg QC Valid YES; Urine Pregnancy NEGATIVE (NEGATIVE)
[2021-07-28 00:37] LABS: Anion Gap 21 (12-20); Blood Urea Nitrogen 8 mg/dL (9-16); Calcium 10.1 mg/dL (8.4-10.2); Carbon Dioxide 17 mmol/L (22-29); Chloride 106 mmol/L (96-108); Creatinine Clr Calc Pharmacy 93.2; Estimated Glomerular Filt Rate > 60; Glucose Random 115 mg/dL (60-115); Potassium 5.5 mmol/L (3.3-5.1); Sodium 138 mmol/L (135-145)
--- NOTE | 2021-07-28 00:38 | PC.NURSE ---
Patient was severely agitated, combative, assualtive towards staff member, refuse to comply with pack changer process, loud disruptive, for patient safety chemical and mechanical restraint ordered by the provider, Ativan 2 mg IM, Haldol 5 mg IM, and Benadryl 50 mg IM administered as ordered at 0010. Mechanical restraint discontinued at 0025, ROM assessed/intact, patient is on 1:1 for safety observation, will continue to monitor.
[2021-07-28 00:41] LABS: COVID-19 Test Negative (Negative); IDNOW Serial# 55D5AD1C
[2021-07-28 00:43] LABS: Amphetamine Screen Urine Not Detected (Not Detect); Barbiturates, Urine Not Detected (Not Detect); Benzodiazepines Screen Urine Not Detected (Not Detect); Cannabinoid Screen Urine Not Detected (Not Detect); Cocaine Screen Urine Not Detected (Not Detect); Fentanyl, urine Not Detected (Not Detect); Opiate Screen Urine Not Detected (Not Detect); Phencyclidine Screen Urine Not Detected (Not Detect)
--- NOTE | 2021-07-28 05:56 | PC.NURSE ---
Patient S/P restraint, slept through the night, no distress observed/reported overnight, [facility] referral completed/confirmed/pending ETA, behavior extremely combative under influence, VSS, will continue to monitor.
--- NOTE | 2021-07-28 09:01 | PC.NURSE ---
PT A/O X 3 NO SOB/AXEL NOTED SKIN PINK WARM DRY SPEAKS IN FULL SENTENCES. PT CHANGED IN HOSP GARMENT. PT'S BOYFRIEND IS VISITING AT BEDSIDE IN ROOM 7. PT'S ROOM IS BEING CLEANED AT THIS TIME. RESTRAINTS REMOVED FROM BED BY SECURITY. PT AWARE OF PLAN OF CARE. PT ATE 100% OF BREAKFAST.
--- NOTE | 2021-07-28 09:28 | PC.NURSE ---
Jhonathan took pt's phone and purse with him with pt's permission on 07/28/2021 at 09:26AM
--- NOTE | 2021-07-28 10:10 | PC.NURSE ---
BHN AT BEDSIDE PT AWARE OF PLAN OF CARE.
== END 2021-07-28 11:40 | disposition home or self-care (01) ==
PROVIDERS: Emergency Provider Emergency Medicine
DX: F33.1 Major depressive disorder, recurrent, moderate (principal); R45.851 Suicidal ideations; F11.90 Opioid use, unspecified, uncomplicated; F14.90 Cocaine use, unspecified, uncomplicated; Z20.822 Contact with and (suspected) exposure to COVID-19; Z79.899 Other long term (current) drug therapy
CPT/HCPCS: 36415; 80048; 80307; 81003; 81025; 82077; 85025; 87635; 96372; 99283; 99285; J1200; J2060

== ENCOUNTER 2021-09-16 10:09 | Outpatient (REF) | payer OTHER, SELFPAY ==
[2021-09-16 18:00] LABS: Fentanyl, urine POSITIVE (Not Detect)
== END 2021-09-16 10:10 | disposition home or self-care (01) ==
LOC: HO.LNP 10:09
PROVIDERS: Visit Provider Internal Medicine
DX: F19.10 Other psychoactive substance abuse, uncomplicated (principal); Z51.81 Encounter for therapeutic drug level monitoring; Z79.899 Other long term (current) drug therapy
CPT/HCPCS: 80305; 80307; 99202

== ENCOUNTER → 2021-09-23 14:02 | Outpatient (BNVA) | payer OTHER, SELFPAY | PROVIDERS: Visit Provider Internal Medicine | DX: Z51.81 Encounter for therapeutic drug level monitoring (principal); F19.10 Other psychoactive substance abuse, uncomplicated | CPT/HCPCS: 80305; 99212 ==

== ENCOUNTER → 2021-09-28 10:37 | Outpatient (BNVA) | payer OTHER, SELFPAY | PROVIDERS: Visit Provider Internal Medicine | DX: F11.20 Opioid dependence, uncomplicated (principal) | CPT/HCPCS: 80305; 99212 ==

== ENCOUNTER 2024-03-15 23:33 | Emergency (ER) | payer OTHER, SELFPAY ==
--- NOTE | ~2024-03-15 | US_ITS ---
EXAMINATION: US ABDOMEN LIMITED CLINICAL INFORMATION: Right upper quadrant pain. COMPARISON: None available. TECHNIQUE: Real-time imaging of the right upper quadrant abdominal viscera. FINDINGS: PANCREAS: The pancreas is obscured by bowel gas. LIVER: The liver is normal in size. The liver contour is normal. The liver is of heterogeneous increased parenchymal echotexture No focal hepatic lesion. There is no intrahepatic biliary duct dilatation seen. GALLBLADDER: The gallbladder is physiologically distended without evidence of stones, sludge, polyps, wall thickening or pericholecystic fluid. COMMON BILE DUCT: Normal in caliber measuring 0.5 cm in diameter. RIGHT KIDNEY: No hydronephrosis. No renal calculi or focal parenchymal lesions. The kidney measures 11.9 cm in maximum dimension. FREE FLUID: None. US/US abdomen limited IMPRESSION: There is generalized increase in hepatic echotexture, consistent with fatty infiltration or hepatocellular disease. No focal hepatic mass, gallstones or intrahepatic biliary dilatation is seen. Electronically signed by: Gaurav Ramirez MD 03/16/2024 01:53 AM JET
[2024-03-15 23:38] VITALS: BP 142/88; PULSE 74; RESP 16; TEMP 35.3; O2SAT 96; BMI 34.2
[2024-03-16 00:04] LABS: MANUAL DIFF FLAG NO
[2024-03-16 00:07] LABS: Basophils Absolute Auto 0.1 X10*3/uL (0.0-0.2); Basophils Percent Auto 0.6 % (0-2); Eosinophils Absolute Auto 0.1 X10*3/uL (0.0-0.4); Hematocrit 39.3 % (37.0-47.0); Hemoglobin 13.3 g/dl (12.0-16.0); Imm Gran Abs Auto 0.03 X10*3/uL (0.00-0.03); Imm Gran Pct Auto 0.3 % (0.0-0.4); Lymphocytes Absolute Auto 1.4 X10*3/uL (1.2-4.9); Lymphocytes Percent Auto 16.5 % (20-40); Mean Corpuscular HGB Conc 33.8 g/dl (31.0-35.0); Mean Corpuscular Hemoglobin 31.8 pg (27.0-33.0); Mean Platelet Volume 10.1 fL (9.4-12.3); Monocytes Absolute Auto 0.5 X10*3/uL (0.1-1.2); Monocytes Percent Auto 5.6 % (2-11); Neutrophils Absolute Auto 6.5 x10*3/uL (2.0-8.3); Platelet Count 167 X10*3/uL (160-400); Red Blood Count 4.18 X10*6/uL (4.20-5.50); Red Cell Distribution Width 15.4 % (11.0-16.0); White Blood Count 8.6 X10*3/uL (4.8-10.8)
[2024-03-16 00:19] LABS: Alanine Aminotransferase 55 U/L (0-31); Albumin Level 3.3 g/dL (3.5-5.0); Alkaline Phosphatase 260 U/L (39-117); Anion Gap 12 (12-20); Aspartate Amino Transferase 273 U/L (5-31); Bilirubin Total 1.4 mg/dL (0.0-1.0); Blood Urea Nitrogen 3 mg/dL (9-16); Calcium 8.8 mg/dL (8.4-10.2); Carbon Dioxide 29 mmol/L (22-29); Chloride 103 mmol/L (96-108); Creatinine Clr Calc Pharmacy 126.7; Estimated Glomerular Filt Rate > 60; Glucose Random 121 mg/dL (60-115); Sodium 140 mmol/L (135-145); Total Protein 8.3 g/dL (6.5-8.0)
[2024-03-16 01:05] LABS: Appearance Urine Cloudy; Color Urine Dark Yellow; Glucose Urine UA Negative (Negative); Leukocyte Esterase Urine Small (1+) (Negative); Nitrite Urine Positive (Negative); Specific Gravity - Urine >= 1.030 (1.005-1.025); UMIC TRIGGER UACC YES; Urine Blood Large (3+) (Negative); Urine Ketones Trace mg/dL (Negative); Urine Protein 30 (1+) mg/dL (Neg-Trace)
[2024-03-16 01:14] LABS: Bacteria Urine Trace (None Seen); Hyaline Casts Urine 0-2 /LPF (0-2); UACC Culture Trigger YES; WBC Urine 0-5 /HPF (0-5)
--- NOTE | 2024-03-16 01:14 | ED_ITS ---
HPI - General Adult General Chief complaint: Back Pain/Injury Stated complaint: lower left back pain Time Seen by Provider: 03/16/24 00:49 Source: patient and RN notes reviewed Mode of arrival: ambulatory Limitations: no limitations History of Present Illness ED Provider: Charles MORA narrative: 38-year-old female with past medical history significant for substance abuse on methadone presents for evaluation of left flank pain. Patient reports her pain started a few hours prior to arrival. Her pain is worse with positional changes, especially walking. After resting her pain is improved. She denies any urinary complaints. She has had a recent history of abnormal menstrual cycles on her menstrual cycle started today Denies any burning with urination or foul-smelling urine. She states that her urine is usually dark at baseline Denies any nausea, vomiting or abdominal pain She reports that she is unsure if she has a history of hepatitis-C Her doctor was supposed to order testing for her but never did The patient states that a few weeks ago she saw her doctor and was told that she has ?an enlarged liver. ? Her pain is currently 10/02 Related Data Previous Rx's ?Medication ?Instructions ?Recorded acamprosate 333 mg tablet,delayed 666 mg (2 x 333 mg) PO TID 7 days 09/16/21 release #42 tabs buprenorphine 2 mg-naloxone 0.5 mg 3 film sublingual DAILY 6 days #20 09/23/21 sublingual film (Suboxone) ea clonidine HCl 0.1 mg tablet 0.1 mg PO TID #30 tabs 09/23/21 hydroxyzine pamoate 25 mg capsule 25 mg PO TID PRN itching #30 caps 09/23/21 (Vistaril) ondansetron 4 mg disintegrating 4 mg PO Q6H PRN nausea and 09/23/21 tablet vomiting #30 tabs trazodone 100 mg tablet 100 mg PO BEDTIME 30 days #30 tabs 09/28/21 cyclobenzaprine 10 mg tablet 10 mg PO TID PRN muscle spasm #20 03/16/24 tabs Allergies Allergy/AdvReac Type Severity Reaction Status Date / Time No Known Allergies Allergy Verified 03/15/24 23:40 Review of Systems 2 Constitutional: Constitutional: Denies body ache(s), Denies chills and Denies fever(s) Eyes: Eyes: Denies blurry vision ENT: Denies vertigo and Denies dizziness Cardiovascular: Cardiovascular: Denies chest pain and Denies dyspnea Respiratory: Respiratory: Denies cough and Denies dyspnea Gastrointestinal: Gastrointestinal: Denies abdominal pain, Denies nausea and Denies vomiting Genitourinary: Genitourinary: Reports abnormal menses, Denies dysuria, Denies pelvic pain and Denies vaginal discharge Musculoskeletal: Musculoskeletal: Reports back pain Integumentary/Breasts: Skin/Breast: Denies rash Neurologic: Denies vertigo and Denies dizziness Psychiatric: Psychiatric: Denies anxiety PMFSH Past Medical History Medical History Alcohol abuse Anxiety Depression Substance abuse Social History Social History Alcohol intake: current Patient Tobacco Use Status: Never used Tobacco Substance Use Type: Crack/Cocaine, Heroin and IV Drugs Advance Directives: No Advance Directives Information Provided: No Do you have a plan to hurt others: No Plan Physical Exam ED Vital Signs: Vital Signs - 24 hr 03/15/24 23:38 Temperature 95.6 F L Pulse Rate 74 Respiratory Rate 16 Blood Pressure 142/88 H Pulse Oximetry 96 Oxygen Delivery Method Room Air BMI result Body Mass Index 34.2 Const General: healthy appearing, comfortable, no acute distress, alert and awake Nutritional Appearance: well nourished Orientation/consciousness: patient oriented x3 HENMT Head: Yes normocephalic and Yes atraumatic Eyes Eyelids: Yes eyelids normal Conjunctivae: conjunctivae normal Sclerae: sclerae normal Corneas: corneas normal Pupils: Equal, round and reactive pupils present EOM: EOMs intact bilaterally Neck Neck: Yes full ROM Resp Effort & Inspection: normal respiratory effort, able to speak in complete sentences and not labored GI Other: Negative CVA tenderness Inspection: No distended Palpation (GI): Soft to palpation, not firm, Tenderness to palpation present (GI) in the RUQ; not in the LLQ, not in the RLQ, not in the LUQ and Bingham's sign negative, no guarding and not rigid Auscultation: normoactive bowel sounds Back/Spine/Pelvis Other: No vertebral tenderness to the thoracic or lumbar spine. The patient has mild lower thoracic paraspinous muscle tenderness. Skin General skin exam: elasticity normal Neuro General: patient oriented x3 Cranial nerves: Yes Equal, round and reactive pupils present and Yes Bilaterally intact EOM present Cognition (Neuro): normal cognition Extrem Other: Moving all extremities well without any obvious deformities Medical Decision Making Medical Decision Making [facility] Narrative: 38-year-old female presents for evaluation of left flank pain. She denies any urinary complaints reports that her menstrual cycle started today. We will get a urinalysis to assess for signs of UTI. The patient did not present for abdominal pain but did have some right upper quadrant abdominal tenderness on exam. She was elevated LFTs and elevated bilirubin. Plan for an ultrasound of the gallbladder to rule out acute cholecystitis. She has a history of an enlarged liver and may have a history of hepatitis-C given her history of enlarged liver and IV substance abuse history. The patient is quite comfortable, her left flank pain that she presented with is reproducible on exam, worse with positional changes, most likely musculoskeletal in origin. I did discuss possible CT imaging to evaluate for obstructive uropathy with the patient ultimately declined at this time. The patient does not want hepatitis testing at this time because she does not want additional lab draws and we are unable to add the hepatitis panel to her labs or already drawn. She is due to follow up with her PCP again and will have her testing got outpatient Differential Diagnosis Differential Diagnoses: The differential diagnosis associated with the presentation includes Muscle strain Contusion Pyelonephritis Obstructive uropathy less likely Cholecystitis Cholelithiasis Liver cirrhosis Hepatitis-C Lab Data [facility] Lab Attestation statement: I reviewed the patient's lab results. No leukocytosis or anemia. Normal platelet count. No electrolyte abnormalities. Renal function is within normal limits, patient's total bilirubin is elevated as is AST, ALT and alk phos, this could be multifactorial or related to hepatitis-C, viral illness, liver cirrhosis 03/15/24 23:50 03/15/24 23:50 Labs: Lab Results 03/15/24 03/16/24 Range/Units 23:50 00:57 WBC 8.6 (4.8-10.8) X10*3/uL RBC 4.18 L D (4.20-5.50) X10*6/uL Hgb 13.3 D (12.0-16.0) g/dl Hct 39.3 D (37.0-47.0) % MCV 94.0 (80.0-98.0) fL MCH 31.8 (27.0-33.0) pg MCHC 33.8 (31.0-35.0) g/dl RDW 15.4 (11.0-16.0) % Plt Count 167 D (160-400) X10*3/uL MPV 10.1 (9.4-12.3) fL Immature Gran % (Auto) 0.3 (0.0-0.4) % Neut % (Auto) 76.0 H (45-73) % Lymph % (Auto) 16.5 L (20-40) % [place] % (Auto) 5.6 (2-11) % Eos % (Auto) 1.0 (0-4) % Baso % (Auto) 0.6 (0-2) % Lymph # (Auto) 1.4 (1.2-4.9) X10*3/uL [place] # (Auto) 0.5 (0.1-1.2) X10*3/uL Eos # (Auto) 0.1 (0.0-0.4) X10*3/uL Baso # (Auto) 0.1 (0.0-0.2) X10*3/uL Abs Immat Gran (auto) 0.03 (0.00-0.03) X10*3/uL Absolute Neuts (auto) 6.5 (2.0-8.3) x10*3/uL Absolute Nucleated RBC 0.000 (0.0-0.012) X10*3/uL Nucleated RBC % (auto) 0.0 (0.0-0.2) /100WBC Sodium 140 (135-145) mmol/L Potassium 4.0 (3.3-5.1) mmol/L Chloride 103 (96-108) mmol/L Carbon Dioxide 29 (22-29) mmol/L Anion Gap 12 (12-20) BUN 3 L (9-16) mg/dL Creatinine 0.59 (0.5-1.4) mg/dL Estim Creat Clear Calc 126.7 Estimated GFR > 60 Random Glucose 121 H (60-115) mg/dL Calcium 8.8 D (8.4-10.2) mg/dL Total Bilirubin 1.4 H (0.0-1.0) mg/dL AST 273 H (5-31) U/L ALT 55 H (0-31) U/L Alkaline Phosphatase 260 H (39-117) U/L Total Protein 8.3 H (6.5-8.0) g/dL Albumin 3.3 L (3.5-5.0) g/dL Urine Color Dark Yellow Urine Appearance Cloudy Urine pH 7.0 (5.0-9.0) Ur Specific [place] >= 1.030 H (1.005-1.025) Urine Protein 30 (1+) H (Neg-Trace) mg/dL Urine Glucose (UA) Negative (Negative) mg/dL Urine Ketones Trace (Negative) mg/dL Urine Blood Large (3+) H (Negative) Urine Nitrite Positive H (Negative) Ur Leukocyte Esterase Small (1+) H (Negative) Urine RBC 3-5 H (0-2) /HPF Urine WBC 0-5 (0-5) /HPF Ur Squamous Epith Cells 11-20 (0-2) /HPF Urine Bacteria Trace (None Seen) Hyaline Casts 0-2 (0-2) /LPF Independent Interpretation I performed an independent interpretation of an: Ultrasound (Heterogeneous liver) Tests considered The following testing was considered but not selected: CT scan of the abdomen pelvis Discharge Plan Discharge Clinical Impression: Acute left flank pain, Transaminitis Patient Disposition: Home, Self-Care Instructions: Muscle Strain (ED) Additional Instructions: Your liver enzymes were elevated today. Your liver was enlarged. I strongly recommend that you follow-up with your primary doctor for the hepatitis testing that was declined today. Your back pain is most likely musculoskeletal in origin. I sent a prescription for a muscle relaxer to your pharmacy. This may make you drowsy, do not drink alcohol or drive after taking it Return for new or worsening symptoms You may also use ibuprofen for pain, you should avoid Tylenol due to the liver disease Prescriptions: New cyclobenzaprine 10 mg tablet 10 mg PO TID PRN (Reason: muscle spasm) Qty: 20 0RF No Action acamprosate 333 mg tablet,delayed release (DR/EC) 666 mg PO TID 7 Days Qty: 42 0RF ondansetron 4 mg tablet,disintegrating 4 mg PO Q6H PRN (Reason: nausea and vomiting) Qty: 30 0RF hydroxyzine pamoate [Vistaril] 25 mg capsule 25 mg PO TID PRN (Reason: itching) Qty: 30 0RF clonidine HCl 0.1 mg tablet 0.1 mg PO TID Qty: 30 0RF buprenorphine-naloxone [Suboxone] 2-0.5 mg film 3 film sublingual DAILY 6 Days Qty: 20 0RF Rx Instructions: place 1 strip/tab under (each) side of tongue trazodone 100 mg tablet 100 mg PO BEDTIME 30 Days Qty: 30 0RF Print Language: [place]
[2024-03-16 01:54] VITALS: BP 135/76; PULSE 71; RESP 16; TEMP 36.6; O2SAT 97
[2024-03-16 01:55] VITALS: BP 135/76; PULSE 71; RESP 16; TEMP 36.6; O2SAT 97
== END 2024-03-16 01:55 | disposition home or self-care (01) ==
PROVIDERS: Emergency Provider Emergency Medicine; PCP Internal Medicine
DX: M54.50 Low back pain, unspecified (principal); R10.11 Right upper quadrant pain; R79.89 Other specified abnormal findings of blood chemistry; Z79.899 Other long term (current) drug therapy
CPT/HCPCS: 36415; 76705; 80053; 81001; 85025; 87086; 99284

== ENCOUNTER 2024-03-31 09:31 | Inpatient (IN) | payer OTHER, SELFPAY ==
[2024-03-31] VITALS (7 sets, daily range): BP systolic 119–138; BP diastolic 68–81; PULSE 79–114; RESP 14–22; TEMP 36.6–37.4; O2SAT 92–98; BMI 33.1
--- NOTE | ~2024-03-31 | CT_ITS ---
EXAMINATION: CT ABDOMEN PELVIS WITH IV CONTRAST HISTORY: Abdominal pain, elevated LFTs, hematemesis COMPARISON: There are no prior studies for comparison. TECHNIQUE: CT scan of the abdomen and pelvis was performed following administration of 85 mL Omnipaque 350 using standard departmental protocol. Coronal and sagittal reformatted images were generated and reviewed. Oral contrast material was not administered at the request of the referring physician. This CT exam was performed with one or more of the following dose reduction techniques: automated exposure control, adjustment of the mA and/or kV according to patient size, use of iterative reconstruction technique. DLP: 641 mGy-cm FINDINGS: LOWER CHEST: The visualized lung bases are clear. There is no pleural effusion. CARDIOVASCULATURE: The heart is normal in size. There is no pericardial effusion. LIVER: The liver is enlarged and demonstrates heterogeneous density which may represent steatosis. No liver mass is identified. The hepatic and portal veins are patent. GALLBLADDER / BILE DUCTS: The gallbladder is unremarkable. There is no intra or extrahepatic biliary ductal dilatation. SPLEEN: The spleen is enlarged measuring up to 15.7 cm in length. No focal splenic lesion is identified. PANCREAS: The pancreas is unremarkable in appearance. ADRENAL GLANDS: The right adrenal gland is unremarkable. There is a 1.7 cm left adrenal nodule. KIDNEYS/RETROPERITONEUM: No renal calculi are identified. There is no hydronephrosis. No renal masses are identified. LYMPH NODES: No abdominal or pelvic lymphadenopathy. VASCULATURE: The abdominal aorta is normal in caliber. MESENTERY/PERITONEUM: No free fluid. No masses. There is no free intraperitoneal gas. STOMACH: The stomach is collapsed, limiting evaluation. SMALL BOWEL: The small bowel is normal in caliber. COLON: There is a suggestion of irregular wall thickening of the ascending colon. Evaluation is limited by lack of oral contrast material. APPENDIX: Normal. URINARY BLADDER/PELVIC ORGANS: The urinary bladder is unremarkable. An IUD is noted in the endometrial cavity of the uterus. The ovaries are unremarkable. BONES / SOFT TISSUES: No suspicious bony or soft tissue abnormalities. CT/CT abdomen pelvis w IV con IMPRESSION: 1. Hepatosplenomegaly and probable hepatic steatosis. 2. 1.7 cm left adrenal nodule. In the absence of a known primary malignancy, this likely represents an adenoma. If there is a known primary malignancy, adrenal protocol CT is suggested. 3. Suggestion of irregular wall thickening of the ascending colon. Further evaluation with colonoscopy is recommended if this has not recently been performed. Electronically signed by: Feliz Stoddard MD 03/31/2024 03:42 PM EST
[2024-03-31 09:49] LABS: MANUAL DIFF FLAG NO
[2024-03-31 09:51] LABS: Basophils Absolute Auto 0.1 X10*3/uL (0.0-0.2); Basophils Percent Auto 0.8 % (0-2); Eosinophils Absolute Auto 0.1 X10*3/uL (0.0-0.4); Eosinophils Percent Auto 0.7 % (0-4); Hematocrit 37.4 % (37.0-47.0); Hemoglobin 12.7 g/dl (12.0-16.0); Imm Gran Abs Auto 0.03 X10*3/uL (0.00-0.03); Imm Gran Pct Auto 0.4 % (0.0-0.4); Lymphocytes Absolute Auto 0.8 X10*3/uL (1.2-4.9); Lymphocytes Percent Auto 11.7 % (20-40); Mean Corpuscular Hemoglobin 31.7 pg (27.0-33.0); Mean Corpuscular Volume 93.3 fL (80.0-98.0); Mean Platelet Volume 10.5 fL (9.4-12.3); Monocytes Absolute Auto 0.5 X10*3/uL (0.1-1.2); Monocytes Percent Auto 7.1 % (2-11); Neutrophils Absolute Auto 5.7 x10*3/uL (2.0-8.3); Neutrophils Percent Auto 79.3 % (45-73); Platelet Count 157 X10*3/uL (160-400); Red Blood Count 4.01 X10*6/uL (4.20-5.50); Red Cell Distribution Width 17.3 % (11.0-16.0); White Blood Count 7.2 X10*3/uL (4.8-10.8)
--- NOTE | 2024-03-31 09:58 | PC.NURSE ---
actively vomitiung with coffee ground emisis. axox3. slight shake. see AUBREY
[2024-03-31 10:08] LABS: Ethanol 39 mg/dL
[2024-03-31 10:11] LABS: Alanine Aminotransferase 50 U/L (0-31); Alkaline Phosphatase 269 U/L (39-117); Anion Gap 14 (12-20); Aspartate Amino Transferase 342 U/L (5-31); Bilirubin Total 1.8 mg/dL (0.0-1.0); Blood Urea Nitrogen 4 mg/dL (9-16); Calcium 8.8 mg/dL (8.4-10.2); Carbon Dioxide 25 mmol/L (22-29); Chloride 104 mmol/L (96-108); Creatinine Clr Calc Pharmacy 118.5; Estimated Glomerular Filt Rate > 60; Glucose Random 152 mg/dL (60-115); Potassium 3.8 mmol/L (3.3-5.1); Sodium 139 mmol/L (135-145); Total Protein 8.4 g/dL (6.5-8.0)
[2024-03-31] MEDS: ondansetron HCL 4 MG/2 ML VIAL IVPUSH (10:46)
[2024-03-31] MEDS: 0.9 % Sodium Chloride 1,000 ML 999 ML IV (10:47)
--- NOTE | 2024-03-31 10:48 | PC.NURSE ---
no longer vomiting. sleeping on and off. awaits provider.
--- NOTE | 2024-03-31 12:05 | ED.NAVMDI ---
HPI - Nausea/Vomiting/Diarrhea General Chief complaint: Nausea/Vomiting/Diarrhea Stated complaint: Vomiting blood Time Seen by Provider: 03/31/24 11:58 Source: patient Mode of arrival: ambulatory Limitations: no limitations History of Present Illness ED Provider: Dr. 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 Patient states she began to feel ill on , 03/27/2024 (5 days). She states she had a sore throat, nausea with vomiting 2 to 3 times a day, intermittent diarrhea on and off with dark stool, and epigastric abdominal pain. She denied fever, chills, rhinorrhea or cough. She denied chest pain or shortness of breath. Patient states that today she had at least 5 episodes of vomiting. She states she was vomiting bright red blood and dark blood with blood clots. She states that she filled her bathroom sink with blood. She states that she does have chronic nausea and does vomit 1 or 2 times a day but he was never had hematemesis. The patient does drink alcohol daily. She states she drinks 1/2 of a box of wine per day and 10 whiskey nips. Patient does have a history of cocaine and fentanyl injection use disorder but has not used in over a year and is in a methadone program. Patient was seen in the emergency department on 03/15/2024 for flank pain. At that time she had elevated LFTs and had an ultrasound that revealed fatty liver with no other significant abnormalities. Related Data Home Medications ?Medication ?Instructions ?Recorded ?Confirmed methadone 10 mg/mL oral 50 mg PO DAILY 03/31/24 03/31/24 concentrate (Methadone Intensol) Allergies Allergy/AdvReac Type Severity Reaction Status Date / Time No Known Allergies Allergy Verified 03/31/24 09:35 Review of Systems Review of Systems: Yes all other systems are reviewed and are negative [facility] Past Medical History [facility] Narrative: Social history: The patient smokes 1/2 pack of cigarettes per day times many years. Patient does drink alcohol daily, 1/3 of a box of wine per day and 10 whiskey nips per day. Medical History Substance abuse Alcohol abuse Anxiety Depression Social History Social History Household Members: Spouse Housing: Apartment Do you presently have visiting nurse or other home services: No Unable to assess alcohol history related to: Unknown Alcohol intake: current Patient Tobacco Use Status: Former Tobacco user Cigarettes Per Day: 10 Substance Use Type: Crack/Cocaine, Heroin and IV Drugs Physical Exam Vital Signs: Vital Signs: Last Vital Signs Temp 99.6 F 04/01/24 07:35 Pulse 78 04/01/24 07:35 Resp 18 04/01/24 07:35 BP 116/75 04/01/24 07:35 Pulse Ox 92 04/01/24 07:35 O2 Del Method Room Air 04/01/24 07:35 BMI result Body Mass Index 33.1 Vital signs were normal Exam: General: Awake, alert in no distress Head: Normocephalic, atraumatic EENT: PERRL, Lids normal, sclera normal, conjunctiva normal, nose normal , ears normal, throat without erythema or exudates Neck: Supple, no adenopathy Lung: breath sounds symmetric, no wheezing, rales or rhonchi Chest: symmetric movement, nontender Heart: regular rate and rhythm, normal S1, S2 no murmurs or rubs Abdomen: Obese, distended normoactive bowel sounds, moderate epigastric tenderness, mild diffuse tenderness Back: no vertebral tenderness, no CVAT Extremities: no deformities, moves all extremities symmetrically Neuro: Awake, alert, oriented, normal speech, cranial nerves intact, moves all extremities symmetrically Psych: Pleasant, cooperative Medications Administered Generic Name Dose Route Start Last Admin Trade Name Jaidenq PRN Reason Stop Dose Admin Sodium Chloride 1,000 mls @ 75 mls/hr 03/31/24 14:00 04/01/24 03:03 Ns IVCONT 75 mls/hr .[id number] BRITTANIE Administration Methadone HCl 50 mg 04/01/24 09:00 04/01/24 07:58 Methadone Hcl 20 Mg/2 Ml Oral.Conc PO 50 mg DAILY BRITTANIE Administration Pantoprazole Sodium 40 mg 03/31/24 16:30 04/01/24 05:31 Pantoprazole Sodium 40 Mg/10 Ml Vial IVPUSH 40 mg BID@0630,1630 BRITTANIE Administration Phenobarbital 30 mg 04/01/24 09:00 04/01/24 07:58 Phenobarbital 30 Mg Tablet PO 04/02/24 21:01 30 mg BID BRITTANIE Administration Protocol Sodium Chloride 3 ml 03/31/24 16:00 04/01/24 07:59 0.9 % Sodium Chloride Flush 3 Ml Syringe IVFLUSH 3 ml QSHIFT BRITTANIE Administration Discontinued Medications Generic Name Dose Route Start Last Admin Trade Name John PRN Reason Stop Dose Admin Sodium Chloride 1,000 mls @ 999 mls/hr 03/31/24 11:00 03/31/24 11:44 Ns IV 03/31/24 12:00 Infused .Q1H1M BRITTANIE Infusion Phytonadione 10 mg/ Sodium 51 mls @ 51 mls/hr 03/31/24 18:00 03/31/24 20:15 Chloride IV 03/31/24 18:59 Infused ONCE ONE Infusion Iohexol 100 ml 03/31/24 13:55 03/31/24 13:56 Iohexol 350 Mg/Ml 100 Ml Infus..Btl IV 03/31/24 13:56 85 ml ONCE ONE Administration Methadone HCl 50 mg 03/31/24 14:00 03/31/24 14:43 Methadone Hcl 20 Mg/2 Ml Oral.Conc PO 03/31/24 14:01 50 mg ONCE ONE Administration Ondansetron HCl 4 mg 03/31/24 10:17 03/31/24 10:46 Ondansetron Hcl 4 Mg/2 Ml Vial IVPUSH 03/31/24 10:18 4 mg ONCE ONE Administration Pantoprazole Sodium 80 mg 03/31/24 12:38 03/31/24 13:58 Pantoprazole Sodium 40 Mg/10 Ml Vial IVPUSH 03/31/24 12:39 80 mg ONCE ONE Administration Phenobarbital Sodium 155 mg 03/31/24 15:00 03/31/24 14:41 Phenobarbital Sodium 130 Mg/Ml Im Once IM 03/31/24 15:01 155 mg ONCE ONE Administration Protocol Phenobarbital Sodium 115 mg 03/31/24 18:00 03/31/24 21:21 Phenobarbital Sodium 130 Mg/Ml Vial Im Q3hx2 IM 03/31/24 21:01 115 mg Q3H BRITTANIE Administration Protocol Medical Decision Making Medical Decision Making MDM Narrative: 38-year-old female history of anxiety, depression, alcohol use disorder, substance use disorder (fentanyl and cocaine) on methadone with no use x1 year who presents emergency department for evaluation of viral syndrome and hematemesis. Patient has been sick for proximally 5 days with 2-3 episodes of vomiting per day. Today the patient vomiting bright red blood, dark blood and blood clots, she filled her bathroom sink with blood. Patient also was complaining of epigastric pain. She continues to drink a significant amount of alcohol daily (a 3rd of a box of wine and 10 whiskey nips daily). Patient was seen in the emergency department 03/15/2024 for flank pain and had elevated LFTs with fatty liver on her ultrasound of her abdomen. Vital signs were normal. She did have moderate epigastric tenderness with mild diffuse abdominal tenderness. Patient's abdomen is obese and does appear to be distended. Differential diagnosis: ?Includes but is not limited to viral syndrome, Justyna-Rodriguez tear, esophageal varices, alcoholic hepatitis, cirrhosis, electrolyte abnormalities, anemia Course: 12:52 My interpretation patient's laboratory evaluation is as follows: WBC was normal 7200. H&H was normal 12.7 and 37.4 this was compared to an H&H of 13.3 and 39.3 on 03/15/2024. Glucose elevated 152. Total bilirubin elevated 1.8. AST and ALT elevated 342 and 50. Alk-phos elevated 269. Ethanol level was elevated 39. Patient's elevation in her liver panel is consistent with alcoholic hepatitis. The patient's H&H is stable at this time however she reports a significant amount of hematemesis. Given her alcohol use disorder and daily consumption she was high-risk for upper GI bleed. She was also at high-risk for alcohol withdrawal. I did order CIWA scale q.4 hours. Patient did not want any Ativan this time. I did discuss her presentation with the covering mechanical applications engineer, Dr. Apodaca and he recommended admitting the patient to the hospital to follow her H&H and hemoptysis and he will put her on the schedule for tomorrow to do an endoscopy. He also recommended getting a CT scan of the abdomen pelvis with IV contrast. Patient was treated with normal saline IV x1 L and Protonix 80 mg IV. 15:05 Patient's repeat 4 hour H&H did not reveal a significant drop in her H&H. Initial H&H was 12.7 and 37.4 with repeat H&H being 12.2 and 36.5. INR was elevated 1.4. PTT was elevated 42.1-this may be secondary to her liver disease and alcohol use disorder. Quantitative beta-hCG was below detectable limits. CT scan of the abdomen pelvis with IV contrast is still pending. 16:00 CT scan of the abdomen pelvis revealed no acute abnormalities to explain the patient's hematemesis. Admission/Observation Consideration of admission/observation: Escalation of care including admission/observation considered (Yes) Consult Healthcare Provider Management of the patient was discussed with: Hospitalist (Nurse practitioner Adela Tarango) and Deposit Clerk (Forest Fire Control Officer on-call, Dr. Apodaca) Lab Data MDM Lab Attestation statement: I reviewed the patient's lab results. 03/31/24 18:53 03/31/24 09:45 Labs: Lab Results 03/31/24 Range/Units 09:45 WBC 7.2 (4.8-10.8) X10*3/uL RBC 4.01 L (4.20-5.50) X10*6/uL Hgb 12.7 (12.0-16.0) g/dl Hct 37.4 (37.0-47.0) % MCV 93.3 (80.0-98.0) fL MCH 31.7 (27.0-33.0) pg MCHC 34.0 (31.0-35.0) g/dl RDW 17.3 H (11.0-16.0) % Plt Count 157 L (160-400) X10*3/uL MPV 10.5 (9.4-12.3) fL Immature Gran % (Auto) 0.4 (0.0-0.4) % Neut % (Auto) 79.3 H (45-73) % Lymph % (Auto) 11.7 L (20-40) % [place] % (Auto) 7.1 (2-11) % Eos % (Auto) 0.7 (0-4) % Baso % (Auto) 0.8 (0-2) % Lymph # (Auto) 0.8 L (1.2-4.9) X10*3/uL [place] # (Auto) 0.5 (0.1-1.2) X10*3/uL Eos # (Auto) 0.1 (0.0-0.4) X10*3/uL Baso # (Auto) 0.1 (0.0-0.2) X10*3/uL Abs Immat Gran (auto) 0.03 (0.00-0.03) X10*3/uL Absolute Neuts (auto) 5.7 (2.0-8.3) x10*3/uL Absolute Nucleated RBC 0.000 (0.0-0.012) X10*3/uL Nucleated RBC % (auto) 0.0 (0.0-0.2) /100WBC Sodium 139 (135-145) mmol/L Potassium 3.8 (3.3-5.1) mmol/L Chloride 104 (96-108) mmol/L Carbon Dioxide 25 (22-29) mmol/L Anion Gap 14 (12-20) BUN 4 L (9-16) mg/dL Creatinine 0.62 (0.5-1.4) mg/dL Estim Creat Clear Calc 118.5 Estimated GFR > 60 Random Glucose 152 H (60-115) mg/dL Calcium 8.8 (8.4-10.2) mg/dL Total Bilirubin 1.8 H (0.0-1.0) mg/dL AST 342 H (5-31) U/L ALT 50 H (0-31) U/L Alkaline Phosphatase 269 H (39-117) U/L Total Protein 8.4 H (6.5-8.0) g/dL Albumin 3.0 L (3.5-5.0) g/dL Lipase 70 (8-78) U/L Beta HCG, Quant < 2 mIU/mL Ethyl Alcohol 39 mg/dL Radiology Impression Discussion of test interpretation with radiology: I have reviewed the radiologist's reading. Radiologist Impression: CT abdomen pelvis w IV con IMPRESSION: 1. Hepatosplenomegaly and probable hepatic steatosis. 2. 1.7 cm left adrenal nodule. In the absence of a known primary malignancy, this likely represents an adenoma. If there is a known primary malignancy, adrenal protocol CT is suggested. 3. Suggestion of irregular wall thickening of the ascending colon. Further evaluation with colonoscopy is recommended if this has not recently been performed. Electronically signed by: Feliz Stoddard MD 03/31/2024 03:42 PM [facility] Dictated By: Feliz Stoddard MD Independent Historian Clinical information obtained from an independent historian. History obtained from or confirmed by: Spouse Chronic Conditions Patient?s care impacted by: Other (Alcohol use disorder) Critical Care Time Critical Care Time Critical Care Time: Yes Total Critical Care Time: 35 Attestation: Critical Care: The patient was critically ill with a high probability of imminent or life threatening deterioration. I spent greater than 30 minutes of discontinuous time evaluating the patient,delivering critical care at the bedside, discussing and evaluating pertinent data with consultants. Critical care time does not include time spent performing separately billable procedures or teaching. Total time spent performing critical care was 35 minutes. Discharge Plan Discharge Clinical Impression: Hemoptysis, Acute alcoholic hepatitis, Alcohol use disorder Patient Disposition: Admitted As Inpatient Interventions: Admission Worksheet (ED) Last Done: 03/31/24 18:36 Discharge Date/Time: 03/31/24 21:02
[2024-03-31 13:16] LABS: Lipase 70 U/L (8-78)
[2024-03-31 13:25] LABS: HCG Quantitative < 2 mIU/mL
[2024-03-31] MEDS: iohexoL 350 MG/ML 100 ML INFUS..BTL IV (13:56)
[2024-03-31] MEDS: Pantoprazole Sodium 40 MG/10 ML VIAL 80 MG IVPUSH (13:58)
--- NOTE | 2024-03-31 13:58 | HE.PHANOTE ---
RE: methadone Received verification form, [facility] last dose 50mg from a take home bottle on 03/30/24.
--- NOTE | 2024-03-31 13:59 | P.HPHOSP_ITS ---
History of Present Illness Date of Service: 03/31/24 Chief Complaint: Hematemesis 38F H alcohol dependence, opiate dependence on methadone presented with hematemesis. Patient reports feeling ill for 3-4 days prior to presentation. [place] fatigue, nausea with vomiting of food contents, diarrhea, abdominal cramping. Denies fever or chills. On day of presentation started to have vomiting with hematemesis intermittently bright red blood and occasionally coffee-ground. Has never had similar symptoms before. Last drink of alcohol was night prior to presentation. Review of Systems 2 Review of Systems: Yes all other systems are reviewed and are negative [facility] Medical History Substance abuse Alcohol abuse Anxiety Depression Social History Unable to assess alcohol history related to: Unknown Alcohol intake: current Patient Tobacco Use Status: Never used Tobacco Smoked in Last 30 Days: No Use of substances other than those prescribed or required for medical reasons: No Substance Use Type: Crack/Cocaine, Heroin and IV Drugs Advance Directives: No Advance Directives Information Provided: Yes Meds Allergies Allergy/AdvReac Type Severity Reaction Status Date / Time No Known Allergies Allergy Verified 03/31/24 09:35 Active Medications: Current Medications Methadone HCl (Methadone Hcl 20 Mg/2 Ml Oral.Conc) 50 mg PO ONCE ONE Stop: 03/31/24 14:01 Home Medications ?Medication ?Instructions ?Recorded ?Confirmed ?Last Taken ?Type methadone 10 mg/mL oral 50 mg PO DAILY 03/31/24 03/31/24 03/30/24 History concentrate (Methadone Intensol) Physical Exam 2 Vital Signs and Narrative: Vital Signs: Last Vital Signs Temp 97.8 F 03/31/24 10:48 Pulse 84 03/31/24 10:48 Resp 18 03/31/24 10:48 BP 121/72 03/31/24 10:48 Pulse Ox 93 03/31/24 10:48 O2 Del Method Room Air 03/31/24 10:48 BMI result Body Mass Index 33.1 General: AO X 3, no acute distress Resp: CTA bilateral, no accessory muscles used CVS: S1,S2,RRR GI: soft, non tender, non distended Neuro: motor grossly intact, alert Psych: appropriate affect, appropriate insight Results Labs 03/31/24 09:45 03/31/24 09:45 Labs: Laboratory Results - last 24 hr 03/31/24 09:45 MCV 93.3 MCH 31.7 MCHC 34.0 RDW 17.3 H Plt Count 157 L MPV 10.5 Immature Gran % (Auto) 0.4 Neut % (Auto) 79.3 H Lymph % (Auto) 11.7 L [place] % (Auto) 7.1 Eos % (Auto) 0.7 Baso % (Auto) 0.8 Lymph # (Auto) 0.8 L [place] # (Auto) 0.5 Eos # (Auto) 0.1 Baso # (Auto) 0.1 Abs Immat Gran (auto) 0.03 Absolute Neuts (auto) 5.7 Absolute Nucleated RBC 0.000 Nucleated RBC % (auto) 0.0 Anion Gap 14 Estim Creat Clear Calc 118.5 Estimated GFR > 60 Random Glucose 152 H Calcium 8.8 Total Bilirubin 1.8 H AST 342 H ALT 50 H Alkaline Phosphatase 269 H Total Protein 8.4 H Albumin 3.0 L Lipase 70 Beta HCG, Quant < 2 Ethyl Alcohol 39 Assessment and Plan (1) Alcohol use disorder: Status: Acute Plan 38F PMH alcohol dependence, opiate dependence on methadone presented with hematemesis Hematemesis IV Protonix, IV fluids, NPO, GI eval, monitor CBC, antiemetic Alcohol dependence with fatty liver, high risk for withdrawal will start phenobarbital and CIWA Opiate dependence Continue methadone once verified DVT prophylaxis-mechanical due to GI bleed Full code Given patient's hematemesis and high-risk for withdrawal likely require at least 2 midnights inpatient Quality Stroke Does the patient have a stroke diagnosis?: No VTE Prior VTE?: No VTE Risk Level:: Medical - moderate - high VTE Device Contraindication: N/A - Device Ordered VTE Drug Contraindication: Treatment Not Tolerated
[2024-03-31 14:09] LABS: Hematocrit 36.5 % (37.0-47.0); Hemoglobin 12.2 g/dl (12.0-16.0)
[2024-03-31 14:20] LABS: INTERNATIONAL NORM RATIO 1.4 (0.9-1.1)
[2024-03-31 14:22] LABS: Partial Thromboplastin Time 42.1 SEC (26.0-36.8)
--- NOTE | 2024-03-31 14:25 | PHA.MEDREC ---
Addendum entered by Gabbi Gardner RPh 03/31/24 14:49: reviewed by pharmacist Original Note: Pharmacy Consult ? Medication Reconciliation Pharmacy has completed the medication reconciliation. Spoke to patient to confirm med list. Patient states she only takes Methadone 50 mg daily from [facility] , last took yesterday.
[2024-03-31] MEDS: PHENobarbitaL sodium 130 MG/ML IM ONCE 155 MG IM (14:41)
[2024-03-31] MEDS: methADONE HCl 20 MG/2 ML ORAL.CONC 50 MG PO (14:43)
[2024-03-31] MEDS: 0.9 % Sodium Chloride 1,000 ML 75 ML IVCONT (14:45)
[2024-03-31] MEDS: PHENobarbitaL sodium 130 MG/ML VIAL IM Q3Hx2 115 MG IM ×2 (18:14→21:21)
[2024-03-31] MEDS: Phytonadione (Vit K1) 10 MG in 0.9 % Sodium Chloride 50 ML 51 MG IV (18:21)
[2024-03-31 18:59] LABS: MANUAL DIFF FLAG NO
[2024-03-31 19:06] LABS: Basophils Absolute Auto 0.1 X10*3/uL (0.0-0.2); Basophils Percent Auto 0.6 % (0-2); Hematocrit 37.8 % (37.0-47.0); Hemoglobin 12.7 g/dl (12.0-16.0); Imm Gran Abs Auto 0.04 X10*3/uL (0.00-0.03); Imm Gran Pct Auto 0.5 % (0.0-0.4); Lymphocytes Absolute Auto 1.2 X10*3/uL (1.2-4.9); Lymphocytes Percent Auto 15.7 % (20-40); Mean Corpuscular HGB Conc 33.6 g/dl (31.0-35.0); Mean Corpuscular Hemoglobin 31.5 pg (27.0-33.0); Mean Corpuscular Volume 93.8 fL (80.0-98.0); Mean Platelet Volume 10.4 fL (9.4-12.3); Monocytes Absolute Auto 0.6 X10*3/uL (0.1-1.2); Monocytes Percent Auto 7.4 % (2-11); Neutrophils Percent Auto 75.8 % (45-73); Platelet Count 166 X10*3/uL (160-400); Red Blood Count 4.03 X10*6/uL (4.20-5.50); Red Cell Distribution Width 17.7 % (11.0-16.0); White Blood Count 7.9 X10*3/uL (4.8-10.8)
[2024-03-31] MEDS: 0.9 % Sodium Chloride Flush 3 ML SYRINGE IVFLUSH (21:21)
[2024-04-01] VITALS (9 sets, daily range): BP systolic 102–123; BP diastolic 58–79; PULSE 65–90; RESP 14–18; TEMP 36.2–37.6; O2SAT 91–98
--- NOTE | 2024-04-01 01:20 | CONS_ITS ---
DATE OF SERVICE: 03/31/2024 REFERRING PHYSICIAN: Dr. Bolanos REASON FOR CONSULTATION: Coffee-grounds emesis. HISTORY OF PRESENT ILLNESS: The patient is a pleasant 38-year-old woman seen today in consultation for hematemesis. She reports about a 5-day history of nausea, anorexia, and general malaise, which became associated with vomiting including bright red blood and dark blood. She denies any melena. Symptoms have occurred in the setting of chronic alcohol usage with greater than 10 alcoholic drinks on a daily basis. She presented to the emergency room, where she was evaluated and was found to have stable vital signs and a hematocrit on admission of 37.4 down from 39.5 in February. Repeat hematocrit was basically unchanged 6 hours later. The patient states she gets intermittent reflux symptoms, for which she takes [id number] antacids. There is no dysphagia or melena. She believes she had a history of ulcers in the past. PAST MEDICAL HISTORY: 1. Alcohol abuse. 2. Anxiety/depression. CURRENT MEDICATIONS: Her current medication list is reviewed in the chart. ALLERGIES: THERE ARE NONE REPORTED. FAMILY HISTORY: This is reviewed with the patient. SOCIAL HISTORY: She does have a history of substance abuse and is on methadone. REVIEW OF SYSTEMS: SKIN: No pruritus. HEENT: Negative. CARDIOPULMONARY: She denies shortness of breath or chest pain. GASTROINTESTINAL: As above. GENITOURINARY: Negative. NEUROPSYCHIATRIC: Negative. PHYSICAL EXAMINATION: GENERAL: Shows a pleasant female, sitting comfortably in bed. VITAL SIGNS: Reviewed in electronic medical record and are stable. SKIN: Anicteric. HEENT: Shows no scleral icterus. There are multiple telangiectasias across the upper chest. LUNGS: Clear. HEART: Shows a regular rate and rhythm. S1, S2. No murmur. ABDOMEN: Soft without focal masses or tenderness. Bowel sounds are present. No organomegaly is noted. EXTREMITIES: Without edema. LABORATORY DATA: Remarkable for a white blood cell count of 7.2. INR 1.4. Chemistries show elevation of transaminases consistent with alcoholic hepatitis. IMPRESSION: Upper gastrointestinal bleeding. The differential diagnosis for her upper GI bleeding includes peptic ulcer disease, erosive esophagitis, Justyna-Rodriguez tear, and esophageal varices, which seems less likely based on her clinical presentation. She is scheduled for CT scanning for further evaluation. I would recommend treating her with a proton pump inhibitor and following her hematocrit. We will arrange for upper endoscopy tomorrow. This has been discussed with the patient including risks and benefits. She understands these and agrees to proceed. Thanks for asking me to see her. I will follow her in the hospital with you. MD SANGEETHA Dixon/CLAUDIA / [phone]
[2024-04-01] MEDS: 0.9 % Sodium Chloride 1,000 ML 75 ML IVCONT (03:03)
[2024-04-01] MEDS: Pantoprazole Sodium 40 MG/10 ML VIAL IVPUSH ×2 (05:31→16:24)
[2024-04-01] MEDS: PHENobarbitaL 30 MG TABLET PO ×2 (07:58→20:22)
[2024-04-01] MEDS: methADONE HCl 20 MG/2 ML ORAL.CONC 50 MG PO (07:58)
[2024-04-01] MEDS: 0.9 % Sodium Chloride Flush 3 ML SYRINGE IVFLUSH ×2 (07:59→20:24)
--- NOTE | 2024-04-01 09:01 | P.PNIM_ITS ---
Subjective Subjective Date of Service: 04/01/24 Interval History: Last hematemesis 03/31/2024 afternoon No withdrawal symptoms Physical Exam 2 Vital Signs: Vital Signs: Last Vital Signs Temp 99.6 F 04/01/24 07:35 Pulse 78 04/01/24 07:35 Resp 18 04/01/24 07:35 BP 116/75 04/01/24 07:35 Pulse Ox 92 04/01/24 07:35 O2 Del Method Room Air 04/01/24 07:35 BMI result Body Mass Index 33.1 General: AO X 3, no acute distress Resp: CTA bilateral, no accessory muscles used CVS: S1,S2,RRR GI: soft, non tender, non distended Neuro: motor grossly intact, alert Psych: appropriate affect, appropriate insight Objective Data Active Medications Acetaminophen (Acetaminophen 325 Mg Tablet) 650 mg PO Q6H PRN PRN Reason: Pain, Mild 1-3,fever,headache Calcium Carbonate (Calcium Carbonate 750 Mg Tab.Chew) 750 mg PO Q4H PRN PRN Reason: Heartburn Sodium Chloride (Ns) 1,000 mls @ 75 mls/hr IVCONT .[id number] [facility] Last Admin: 04/01/24 03:03 Dose: 75 mls/hr Documented By: DYLAN Magnesium Hydroxide (Milk Of Magnesia 30 Ml Oral.Susp) 30 ml PO DAILY PRN PRN Reason: Constipation Melatonin (Melatonin 3 Mg Tablet) 6 mg PO BEDTIME PRN PRN Reason: Insomnia Methadone HCl (Methadone Hcl 20 Mg/2 Ml Oral.Conc) 50 mg PO DAILY [facility] Last Admin: 04/01/24 07:58 Dose: 50 mg Documented By: FITZ Co-signed By: RUTSY Ondansetron HCl (Ondansetron Hcl 4 Mg/2 Ml Vial) 4 mg IVPUSH Q6H PRN PRN Reason: Nausea Pantoprazole Sodium (Pantoprazole Sodium 40 Mg/10 Ml Vial) 40 mg IVPUSH BID@0630,1630 [facility] Last Admin: 04/01/24 05:31 Dose: 40 mg Documented By: DYLAN Pharmacy Consult (Consult Rx Etoh Phenob Im/Po) 1 each MISCELLANE ONCE PRN; Protocol PRN Reason: Consult order Phenobarbital (Phenobarbital 30 Mg Tablet) 30 mg PO BID [facility]; Protocol Stop: 04/02/24 21:01 Last Admin: 04/01/24 07:58 Dose: 30 mg Documented By: FITZ Phenobarbital (Phenobarbital 15 Mg Tablet) 15 mg PO BID [facility]; Protocol Stop: 04/04/24 21:01 Phenobarbital (Phenobarbital 15 Mg Tablet) 15 mg PO DAILY [facility]; Protocol Stop: 04/06/24 09:01 Sodium Chloride (0.9 % Sodium Chloride Flush 3 Ml Syringe) 3 ml IVFLUSH QSIAFT [facility] Last Admin: 04/01/24 07:59 Dose: 3 ml Documented By: FITZ Labs 03/31/24 18:53 03/31/24 09:45 Labs: Laboratory Results - last 24 hr 03/31/24 03/31/24 03/31/24 09:45 14:01 18:53 MCV 93.3 93.8 MCH 31.7 31.5 MCHC 34.0 33.6 RDW 17.3 H 17.7 H Plt Count 157 L 166 MPV 10.5 10.4 Immature Gran % (Auto) 0.4 0.5 H Neut % (Auto) 79.3 H 75.8 H Lymph % (Auto) 11.7 L 15.7 L [place] % (Auto) 7.1 7.4 Eos % (Auto) 0.7 0.0 Baso % (Auto) 0.8 0.6 Lymph # (Auto) 0.8 L 1.2 [place] # (Auto) 0.5 0.6 Eos # (Auto) 0.1 0.0 Baso # (Auto) 0.1 0.1 Abs Immat Gran (auto) 0.03 0.04 H Absolute Neuts (auto) 5.7 6.0 Absolute Nucleated RBC 0.000 0.000 Nucleated RBC % (auto) 0.0 0.0 PT 16.0 H INR 1.4 H APTT 42.1 H Anion Gap 14 Estim Creat Clear Calc 118.5 Estimated GFR > 60 Random Glucose 152 H Calcium 8.8 Total Bilirubin 1.8 H AST 342 H ALT 50 H Alkaline Phosphatase 269 H Total Protein 8.4 H Albumin 3.0 L Lipase 70 Beta HCG, Quant < 2 Ethyl Alcohol 39 Blood Type O Positive Antibody Screen NEGATIVE Assessment and Plan (1) Alcohol use disorder: Status: Acute Plan 38F H alcohol dependence, opiate dependence on methadone presented with hematemesis Hematemesis IV Protonix, IV fluids, monitor CBC so far stable, antiemetics Plan for EGD today Alcohol dependence with fatty liver, high risk for withdrawal phenobarbital and CIWA Opiate dependence methadone DVT prophylaxis-mechanical due to GI bleed Full code reason for continued hospitalization:egd Quality Stroke Does the patient have a stroke diagnosis?: No VTE Prior VTE?: No VTE Risk Level:: Medical - moderate - high VTE Device Contraindication: N/A - Device Ordered VTE Drug Contraindication: Treatment Not Tolerated
--- NOTE | 2024-04-01 09:54 | HO.ADDICTCON ---
History of Present Illness Date of Service: 04/01/2024 Chief Complaint: hematemesis Reason for Consult: AUD Sources of Information: patient interviewed and chart reviewed HPI Narrative: Patient is a 38 year old female medically admitted with hematemesis. Medical history includes OUD and AUD. Consult requested to discuss ongoing alcohol use and +AUDIT screen Patient seen in room 471 with Recovery Support RN. She was awake, alert, engaged in interview. At times presenting as guarded when discussing OUD and methadone. She reports that for the past 2 years she has been drinking a bottle of wine and a sleeve and a half of nips. Recently she decreased to 1 sleeve of nips in an attempt to taper and eventually stop, but was unable to do so. She reports her alcohol use increased after she decreased and stopped other substance use. She denies history of withdrawal sx, including history of seizures. She does report history of ATS admissions (unclear when) We discussed how alcohol has been impacting her health, including elevated liver enzymes and GI upset after drinking. She denies any history of pancreatitis or other alcohol related hospital admissions We discussed risk reduction strategies for current alcohol use, including mixing alcohol with either juice of soda to lessen impact and also increase time it takes to drink . Discussed eating before drinking and taking vitamins to replenish deficiencies that often occur with frequent drinking. Discussed medications for alcohol use disorder. She reports she has never taken any, but would be open to learning more about them. Asked if she has communicated with her OTP about her drinking and she stated no due to concern that her methadone take home bottles would be d/c. Her current methadone dose is 50mg daily, however she states that she was at 115mg daily and has been tapering over the last several months to a year. She declined to discuss methadone any further, but shares that she is comfortable at her current dose. She denies any alcohol withdrawal sx and has been scoring 0 on CIWA during this admission. Review of Systems Constitutional: Reports as per HPI and Reports no additional constitutional complaints Diagnostics Vital Signs (24Hr): Vital Signs - 24 hr 03/31/24 10:48 03/31/24 14:14 03/31/24 18:13 Temperature 97.8 F 98.1 F 99.0 F Pulse Rate 84 88 96 Respiratory Rate 18 18 18 Blood Pressure 121/72 131/74 119/68 Pulse Oximetry 93 98 95 Oxygen Delivery Method Room Air Room Air Room Air 03/31/24 18:55 03/31/24 21:11 03/31/24 23:30 Temperature 99.1 F 99.4 F Pulse Rate 103 H 86 79 Respiratory Rate 22 H 14 16 Blood Pressure 138/81 137/79 127/71 Pulse Oximetry 97 94 92 Oxygen Delivery Method Room Air Room Air Room Air 04/01/24 03:13 04/01/24 07:35 Temperature 97.2 F 99.6 F Pulse Rate 81 78 Respiratory Rate 16 18 Blood Pressure 114/67 116/75 Pulse Oximetry 92 92 Oxygen Delivery Method Room Air Room Air BMI result Body Mass Index 33.1 Labs 04/01/24 15:08 04/01/24 15:08 Labs: Laboratory Results - last 48 hr 03/31/24 03/31/24 03/31/24 09:45 14:01 18:53 WBC 7.2 7.9 RBC 4.01 L 4.03 L Hgb 12.7 12.2 12.7 Hct 37.4 36.5 L 37.8 MCV 93.3 93.8 MCH 31.7 31.5 MCHC 34.0 33.6 RDW 17.3 H 17.7 H Plt Count 157 L 166 MPV 10.5 10.4 Immature Gran % (Auto) 0.4 0.5 H Neut % (Auto) 79.3 H 75.8 H Lymph % (Auto) 11.7 L 15.7 L [place] % (Auto) 7.1 7.4 Eos % (Auto) 0.7 0.0 Baso % (Auto) 0.8 0.6 Lymph # (Auto) 0.8 L 1.2 [place] # (Auto) 0.5 0.6 Eos # (Auto) 0.1 0.0 Baso # (Auto) 0.1 0.1 Abs Immat Gran (auto) 0.03 0.04 H Absolute Neuts (auto) 5.7 6.0 Absolute Nucleated RBC 0.000 0.000 Nucleated RBC % (auto) 0.0 0.0 PT 16.0 H INR 1.4 H APTT 42.1 H Sodium 139 Potassium 3.8 Chloride 104 Carbon Dioxide 25 Anion Gap 14 BUN 4 L Creatinine 0.62 Estim Creat Clear Calc 118.5 Estimated GFR > 60 Random Glucose 152 H Calcium 8.8 Total Bilirubin 1.8 H AST 342 H ALT 50 H Alkaline Phosphatase 269 H Total Protein 8.4 H Albumin 3.0 L Lipase 70 Beta HCG, Quant < 2 Ethyl Alcohol 39 Blood Type O Positive Antibody Screen NEGATIVE Imaging Radiology Impressions: ITS Impressions Abdomen/Pelvis CT 03/31/24 13:57 IMPRESSION: 1. Hepatosplenomegaly and probable hepatic steatosis. 2. 1.7 cm left adrenal nodule. In the absence of a known primary malignancy, this likely represents an adenoma. If there is a known primary malignancy, adrenal protocol CT is suggested. 3. Suggestion of irregular wall thickening of the ascending colon. Further evaluation with colonoscopy is recommended if this has not recently been performed. Electronically signed by: Feliz Stoddard MD 03/31/2024 03:42 PM [facility] Mental Status Exam Mental Status Exam Patient Appearance: Appropriate Level of Consciousness: Awake, Appropriate and Alert Patient Behavior: Appropriate and Guarded Mood Description: Calm and Blunted Affect Description: Calm and Blunted Speech Pattern: Clear Thought Content: positive for Intact Judgement: Fair Medications Medications Current Medications Acetaminophen (Acetaminophen 325 Mg Tablet) 650 mg PO Q6H PRN PRN Reason: Pain, Mild 1-3,fever,headache Calcium Carbonate (Calcium Carbonate 750 Mg Tab.Chew) 750 mg PO Q4H PRN PRN Reason: Heartburn Sodium Chloride (Ns) 1,000 mls @ 75 mls/hr IVCONT .[id number] [facility] Last Admin: 04/01/24 03:03 Dose: 75 mls/hr Magnesium Hydroxide (Milk Of Magnesia 30 Ml Oral.Susp) 30 ml PO DAILY PRN PRN Reason: Constipation Melatonin (Melatonin 3 Mg Tablet) 6 mg PO BEDTIME PRN PRN Reason: Insomnia Methadone HCl (Methadone Hcl 20 Mg/2 Ml Oral.Conc) 50 mg PO DAILY [facility] Last Admin: 04/01/24 07:58 Dose: 50 mg Ondansetron HCl (Ondansetron Hcl 4 Mg/2 Ml Vial) 4 mg IVPUSH Q6H PRN PRN Reason: Nausea Pantoprazole Sodium (Pantoprazole Sodium 40 Mg/10 Ml Vial) 40 mg IVPUSH BID@0630,1630 [facility] Last Admin: 04/01/24 05:31 Dose: 40 mg Pharmacy Consult (Consult Rx Etoh Phenob Im/Po) 1 each MISCELLANE ONCE PRN; Protocol PRN Reason: Consult order Phenobarbital (Phenobarbital 30 Mg Tablet) 30 mg PO BID [facility]; Protocol Stop: 04/02/24 21:01 Last Admin: 04/01/24 07:58 Dose: 30 mg Phenobarbital (Phenobarbital 15 Mg Tablet) 15 mg PO BID [facility]; Protocol Stop: 04/04/24 21:01 Phenobarbital (Phenobarbital 15 Mg Tablet) 15 mg PO DAILY [facility]; Protocol Stop: 04/06/24 09:01 Sodium Chloride (0.9 % Sodium Chloride Flush 3 Ml Syringe) 3 ml IVFLUSH QSHIFT [facility] Last Admin: 04/01/24 07:59 Dose: 3 ml Allergies Allergies Allergy/AdvReac Type Severity Reaction Status Date / Time No Known Allergies Allergy Verified 03/31/24 09:35 Assessment & Plan Assessment & Plan (1) Alcohol use disorder: Status: Acute Code(s): F10.90 - Alcohol use, unspecified, uncomplicated Assessment and Plan: provided with resources on safer drinking strategies and treatment options provided with medication information --she will review and discuss with her providers if discharged before tmrw Total time managing care of this patient today _50__ minutes. PMFSH Past Medical History Medical History Substance abuse Alcohol abuse Anxiety Depression Social History Social History Household Members: Spouse Housing: Apartment Do you presently have visiting nurse or other home services: No Unable to assess alcohol history related to: Unknown Alcohol intake: current Alcohol intake frequency: 3 or more drinks per day Patient Tobacco Use Status: Current everyday Tobacco user Cigarette Packs Per Day: 0.5 Cigarettes Per Day: 10 Substance Use Type: Crack/Cocaine, Heroin and IV Drugs service: No
--- NOTE | 2024-04-01 09:55 | MHC.CM.PN ---
EMR REVIEWED, PT W/HEMATEMESIS/ETOH, CM MET W/PT WHO REPORTS SHE LIVES W/[place], WORKS AND IS FULLY INDEP W/ALL CARE, NO DME/SERVICES, PT MADE AWARE SHE WILL BE SEEN BY RECOVERY TEAM, ADDICTION MEDICINE REF IN, PT'S GOAL FOR DC IS HOME SELF-CARE. PT VERIFIED PCP ON FILE IS CORRECT, PT EDUCATED ON AND COMPLETED A HCP NAMING HER CHUCK [facility] [phone] HER [facility] AND HER MOTHER CHELLE ALTAMIRANO [phone] HER ALTERNATE, [facility]AD[facility] TO [facility] AND PLACED IN CHART.
--- NOTE | 2024-04-01 11:50 | MHC.SHP ---
Pre-Procedural Eval Section A - 24 Hr Update-Section A only Date of Service: 04/01/24 The patient is an INPATIENT: Yes Changes since office visit: No Cold of Flu in the past 2 weeks, No New Medical Problems, No Changes in Medication and No Patient answered all questions The patient has been examined within 24 hours of the surgical procedure. The History & Physical has been completed within 30 days and I have reviewed it.: Yes Section B - Complete if H&P > 30 days Chief Complaint: hematemesis Allergies: Allergies Allergy/AdvReac Type Severity Reaction Status Date / Time No Known Allergies Allergy Verified 03/31/24 09:35 Plan I have reviewed the history and physical and performed a pertinent physical examination on my patient. No changes have occurred unless specified. Time Spent With Patient Time: Total time managing care of this patient today ____ minutes.
--- NOTE | 2024-04-01 12:40 | P.BOP_ITS ---
Brief Operative Note Date of Service: 04/01/24 Pre-op diagnosis: gi bleed Post-op diagnosis: same (gastritis) Procedure: EGD Surgeon: Ray Apodaca MD Anesthesia: MAC Was an Fishing Line Winding Machine Operator used for this Procedure?: No Estimated blood loss (mL): 2 Pathology: other Condition: stable Disposition: PACU
--- NOTE | 2024-04-01 12:42 | PM.EVENT ---
Event Note Date of Service: 04/01/24 Event Note: EGD gastritis without active bleeding antral biopsies obtained advance diet d/c when stable outpatient colonoscopy for f/u of ct findings Time Spent With Patient Time: Total time managing care of this patient today ____ minutes.
--- NOTE | 2024-04-01 13:24 | HO.ANESPROP2 ---
HPI - Anesthesia Eval Consult details Narrative: upper endo PMFSH Active Problems Active Problems: All Active Problems Alcohol use disorder (Acute) Acute alcoholic hepatitis (Acute) Hemoptysis (Acute) Substance abuse (Acute) Family planning counseling (Acute) Past Medical History Medical History Substance abuse Alcohol abuse Anxiety Depression Family History Family history of problems with anesthesia: No Surgical History History of Problems with Anesthesia: No Social History Social History Household Members: Spouse Housing: Apartment Do you presently have visiting nurse or other home services: No Unable to assess alcohol history related to: Unknown Alcohol intake: current Alcohol intake frequency: 3 or more drinks per day Patient Tobacco Use Status: Current everyday Tobacco user Cigarette Packs Per Day: 0.5 Cigarettes Per Day: 10 Substance Use Type: Crack/Cocaine, Heroin and IV Drugs service: No Meds Allergies Allergy/AdvReac Type Severity Reaction Status Date / Time No Known Allergies Allergy Verified 03/31/24 09:35 Active Medications: Current Medications Acetaminophen (Acetaminophen 325 Mg Tablet) 650 mg PO Q6H PRN PRN Reason: Pain, Mild 1-3,fever,headache Calcium Carbonate (Calcium Carbonate 750 Mg Tab.Chew) 750 mg PO Q4H PRN PRN Reason: Heartburn Sodium Chloride (Ns) 1,000 mls @ 75 mls/hr IVCONT .[id number] [facility] Last Admin: 04/01/24 03:03 Dose: 75 mls/hr Magnesium Hydroxide (Milk Of Magnesia 30 Ml Oral.Susp) 30 ml PO DAILY PRN PRN Reason: Constipation Melatonin (Melatonin 3 Mg Tablet) 6 mg PO BEDTIME PRN PRN Reason: Insomnia Methadone HCl (Methadone Hcl 20 Mg/2 Ml Oral.Conc) 50 mg PO DAILY [facility] Last Admin: 04/01/24 07:58 Dose: 50 mg Ondansetron HCl (Ondansetron Hcl 4 Mg/2 Ml Vial) 4 mg IVPUSH Q6H PRN PRN Reason: Nausea Pantoprazole Sodium (Pantoprazole Sodium 40 Mg/10 Ml Vial) 40 mg IVPUSH BID@0630,1630 [facility] Last Admin: 04/01/24 05:31 Dose: 40 mg Pharmacy Consult (Consult Rx Etoh Phenob Im/Po) 1 each MISCELLANE ONCE PRN; Protocol PRN Reason: Consult order Phenobarbital (Phenobarbital 30 Mg Tablet) 30 mg PO BID [facility]; Protocol Stop: 04/02/24 21:01 Last Admin: 04/01/24 07:58 Dose: 30 mg Phenobarbital (Phenobarbital 15 Mg Tablet) 15 mg PO BID [facility]; Protocol Stop: 04/04/24 21:01 Phenobarbital (Phenobarbital 15 Mg Tablet) 15 mg PO DAILY [facility]; Protocol Stop: 04/06/24 09:01 Sodium Chloride (0.9 % Sodium Chloride Flush 3 Ml Syringe) 3 ml IVFLUSH QSHIFT [facility] Last Admin: 04/01/24 07:59 Dose: 3 ml Home Medications ?Medication ?Instructions ?Recorded ?Confirmed ?Last Taken ?Type methadone 10 mg/mL oral 50 mg PO DAILY 03/31/24 03/31/24 03/30/24 History concentrate (Methadone Intensol) Exam Height,Weight and Vital Signs: Height 5 ft 1 in Weight 79.379 kg Last Vital Signs Temp 98.5 F 04/01/24 13:07 Pulse 78 04/01/24 13:07 Resp 18 04/01/24 13:07 BP 102/58 L 04/01/24 13:07 Pulse Ox 95 04/01/24 13:07 O2 Del Method Room Air 04/01/24 13:07 O2 Flow Rate 8 04/01/24 12:52 Pertinent Lab Results Pertinent Lab Results: Laboratory Tests 03/31/24 03/31/24 03/31/24 09:45 14:01 18:53 WBC 7.2 7.9 RBC 4.01 L 4.03 L Hgb 12.7 12.2 12.7 Hct 37.4 36.5 L 37.8 MCV 93.3 93.8 MCH 31.7 31.5 MCHC 34.0 33.6 RDW 17.3 H 17.7 H Plt Count 157 L 166 MPV 10.5 10.4 Immature Gran % (Auto) 0.4 0.5 H Neut % (Auto) 79.3 H 75.8 H Lymph % (Auto) 11.7 L 15.7 L [place] % (Auto) 7.1 7.4 Eos % (Auto) 0.7 0.0 Baso % (Auto) 0.8 0.6 Lymph # (Auto) 0.8 L 1.2 [place] # (Auto) 0.5 0.6 Eos # (Auto) 0.1 0.0 Baso # (Auto) 0.1 0.1 Abs Immat Gran (auto) 0.03 0.04 H Absolute Neuts (auto) 5.7 6.0 Absolute Nucleated RBC 0.000 0.000 Nucleated RBC % (auto) 0.0 0.0 PT 16.0 H INR 1.4 H APTT 42.1 H Sodium 139 Potassium 3.8 Chloride 104 Carbon Dioxide 25 Anion Gap 14 BUN 4 L Creatinine 0.62 Estim Creat Clear Calc 118.5 Estimated GFR > 60 Random Glucose 152 H Calcium 8.8 Total Bilirubin 1.8 H AST 342 H ALT 50 H Alkaline Phosphatase 269 H Total Protein 8.4 H Albumin 3.0 L Lipase 70 Beta HCG, Quant < 2 Ethyl Alcohol 39 Blood Type O Positive Antibody Screen NEGATIVE Airway Mallampati Class: II TM Dist: >3cm Neck ROM: Full Heart: rrr Lungs: cta Assessment and Plan Assessment Anesthesia Assessment: Anesthesia Plan Discussed Final Anesthetic Review Family History of Problems with Anesthesia: No History of Problems with Anesthesia: No NPO: Yes ASA Class: III Final Preanesthetic Review: No Changes in Pt Med Stat, Meds/Allgs Chart Reviewed and Consent Obtained/Reviewed Patient Risk: Intermediate Procedure Risk: Low Anesthetic Plan Anesthetic Plan: MAC: Disposition: Standard PACU
--- NOTE | 2024-04-01 14:21 | OP_ITS ---
DATE OF SERVICE: 04/01/2024 SURGEON: Ray Apodaca MD INDICATIONS: GI bleeding. PREOPERATIVE DIAGNOSIS: POSTOPERATIVE DIAGNOSIS: PROCEDURE PERFORMED: Upper endoscopy with biopsy. ESTIMATED BLOOD LOSS: COMPLICATIONS: ANESTHESIA: Monitored anesthesia care. ASSISTANTS: SPECIMENS: DESCRIPTION OF PROCEDURE: A history and physical was performed. The risks and benefits of the procedure were explained to the patient and informed consent was obtained. The patient was placed in the left lateral decubitus position. The Olympus video gastroscope was introduced into the esophagus, stomach, and duodenum. Examination was performed and the scope was removed. She tolerated the procedure well and was returned to recovery area in stable condition. FINDINGS: Esophagus: The esophagus was normal. There was no esophagitis. No bleeding was identified. No varices were seen. Stomach: The stomach showed diffuse erythema in the body and fundus consistent with gastritis. No active bleeding was identified. Antral biopsies were obtained to evaluate for H pylori. Duodenum: The bulb and 2nd portion were normal. IMPRESSION: Gastritis. RECOMMENDATIONS: 1. Follow up the biopsy results. 2. Advance diet and discharge when stable. 3. Outpatient colonoscopy for followup of CT scan findings. MD SANGEETHA Dixon/MODL / [id number]
[2024-04-01 15:25] LABS: Hematocrit 30.7 % (37.0-47.0); Hemoglobin 10.4 g/dl (12.0-16.0); Mean Corpuscular HGB Conc 33.9 g/dl (31.0-35.0); Mean Corpuscular Volume 94.5 fL (80.0-98.0); Mean Platelet Volume 11.2 fL (9.4-12.3); Platelet Count 113 X10*3/uL (160-400); Red Blood Count 3.25 X10*6/uL (4.20-5.50); Red Cell Distribution Width 18.1 % (11.0-16.0); White Blood Count 4.7 X10*3/uL (4.8-10.8)
[2024-04-01 15:57] LABS: Alanine Aminotransferase 34 U/L (0-31); Albumin Level 2.5 g/dL (3.5-5.0); Anion Gap 10 (12-20); Aspartate Amino Transferase 274 U/L (5-31); Bilirubin Direct 1.3 mg/dL (0.0-0.5); Bilirubin Total 1.9 mg/dL (0.0-1.0); Blood Urea Nitrogen 5 mg/dL (9-16); Carbon Dioxide 22 mmol/L (22-29); Chloride 107 mmol/L (96-108); Creatinine Clr Calc Pharmacy 126.7; Estimated Glomerular Filt Rate > 60; Glucose Random 119 mg/dL (60-115); Magnesium 1.5 mg/dL (1.6-2.6); Potassium 3.6 mmol/L (3.3-5.1); Sodium 135 mmol/L (135-145); Total Protein 6.9 g/dL (6.5-8.0)
--- NOTE | 2024-04-01 15:59 | MHC.RECOVRN ---
T/W provided pt with written education re: Topamax for AUD. Will visit pt. tomorrow for follow up. Educated pt that if she is D/C today she should f/u with outpatient OUD provider for medication (topamax)
[2024-04-01 16:31] LABS: Alkaline Phosphatase 194 U/L (39-117); Calcium 7.6 mg/dL (8.4-10.2)
[2024-04-02 03:08] VITALS: BP 116/74; PULSE 69; RESP 14; TEMP 36.9; O2SAT 92
[2024-04-02] MEDS: Pantoprazole Sodium 40 MG/10 ML VIAL IVPUSH (05:29)
[2024-04-02 07:59] LABS: Hematocrit 32.2 % (37.0-47.0); Hemoglobin 10.6 g/dl (12.0-16.0); Mean Corpuscular HGB Conc 32.9 g/dl (31.0-35.0); Mean Corpuscular Hemoglobin 31.5 pg (27.0-33.0); Mean Corpuscular Volume 95.5 fL (80.0-98.0); Mean Platelet Volume 10.8 fL (9.4-12.3); Platelet Count 117 X10*3/uL (160-400); Red Blood Count 3.37 X10*6/uL (4.20-5.50); Red Cell Distribution Width 18.4 % (11.0-16.0); White Blood Count 4.9 X10*3/uL (4.8-10.8)
[2024-04-02 08:00] VITALS: BP 104/76; PULSE 76; RESP 18; TEMP 36.2; O2SAT 96
[2024-04-02 08:19] LABS: Anion Gap 9 (12-20); Blood Urea Nitrogen 4 mg/dL (9-16); Calcium 7.9 mg/dL (8.4-10.2); Carbon Dioxide 25 mmol/L (22-29); Chloride 105 mmol/L (96-108); Creatinine Clr Calc Pharmacy 133.5; Estimated Glomerular Filt Rate > 60; Glucose Random 72 mg/dL (60-115); Potassium 3.9 mmol/L (3.3-5.1); Sodium 135 mmol/L (135-145)
[2024-04-02] MEDS: methADONE HCl 20 MG/2 ML ORAL.CONC 50 MG PO (08:38)
[2024-04-02] MEDS: PHENobarbitaL 30 MG TABLET PO (08:38)
[2024-04-02] MEDS: 0.9 % Sodium Chloride Flush 3 ML SYRINGE IVFLUSH (08:39)
--- NOTE | 2024-04-02 10:19 | HO.POSTANES ---
Post Anesthesia Evaluation Post Anesthesia Evaluation Date of Service: 04/02/24 Vital Signs: Vital Signs Temp Pulse Resp BP Pulse Ox O2 Del Method 04/02/24 08:00 97.2 F 76 18 104/76 96 Room Air 04/02/24 03:08 98.4 F 69 14 116/74 92 Room Air 04/01/24 23:41 97.7 F 65 14 108/71 93 Room Air Anesthesia: Monitored Mental Status: Awake Pain Control: Satisfactory Nausea/Vomiting: None Hydration: Adequate Anesthesia-Related Issues: No Anes. Related Issues
--- NOTE | 2024-04-02 10:30 | MHC.CM.PN ---
PER HOSPITALIST PT TO BE MEDICALLY CLEARED FOR DC HOME SELF CARE, PT TO ARRANGE TRANSPORT.
--- NOTE | 2024-04-02 10:52 | PM.DS ---
DS: Providers Provider Date of Service: 04/02/24 Date of admission: 03/31/24 13:57 Date of discharge: 04/02/24 Primary care physician: Carlee Dubois MD Consults: 03/31/24 13:54 Consult to Gastroenterology Routine Consulting Provider: Ray Apodaca Reason for consultation: hematemesis 03/31/24 15:28 Addiction Medicine Routine Consulting Provider: Addiction Covering Reason for consultation: daily drinking DS: Diagnosis Discharge Diagnosis (1) Alcohol use disorder: Status: Acute DS: Summary Hospital Course Hospital Course: History and physical as per admitting provider. 38F PMH alcohol dependence, opiate dependence on methadone presented with hematemesis. Patient reports feeling ill for 3-4 days prior to presentation. [place] fatigue, nausea with vomiting of food contents, diarrhea, abdominal cramping. Denies fever or chills. On day of presentation started to have vomiting with hematemesis intermittently bright red blood and occasionally coffee-ground. Has never had similar symptoms before. Last drink of alcohol was night prior to presentation. 38-year-old woman treated for hematemesis. Initially treated with IV fluids, IV Protonix, NPO. She was seen and evaluated by Gastroenterology and underwent endoscopy which showed gastritis without active bleeding, antral biopsies taken and she can follow up with the primary care provider for results of that. Plan is for outpatient colonoscopy. Patient has had no further hematemesis, she was encouraged to stop drinking alcohol. She will be discharged home with PPI. Substance abuse. Continue methadone. Last dose 04/02/2024 Time Attestation Discharge Coordination Time (in mins): 40 Quality: Safe Use of Opioids Does Pt have an Active Cancer Diagnosis on the Problem List?: No Quality: Stroke Does the patient have a stroke diagnosis?: No Physical Exam Vital Signs: Vital Signs: Last Vital Signs Temp 97.2 F 04/02/24 08:00 Pulse 76 04/02/24 08:00 Resp 18 04/02/24 08:00 BP 104/76 04/02/24 08:00 Pulse Ox 96 04/02/24 08:00 O2 Del Method Room Air 04/02/24 08:00 O2 Flow Rate 8 04/01/24 12:52 BMI result Body Mass Index 33.1 Appearing in no acute distress head is normocephalic atraumatic eyes pupils are PERRLA sclera is anicteric mouth throat mucous membranes are intact and moist neck is supple no lymphadenopathy, no JVD noted lung sounds are clear to auscultation heart regular rate rhythm, clear S1, S2 positive bowel sounds, abdomen is soft, nontender neuro patient is alert x3, no focal deficits DS: Data Data Completed and Pending Pending studies at discharge: Pending at discharge 04/01/24 12:37 Surgical [PTH] Routine Labs on day of discharge: Laboratory Results - last 24 hr 04/01/24 04/02/24 15:08 07:17 WBC 4.7 L 4.9 RBC 3.25 L 3.37 L Hgb 10.4 L 10.6 L Hct 30.7 L 32.2 L MCV 94.5 95.5 MCH 32.0 31.5 MCHC 33.9 32.9 RDW 18.1 H 18.4 H Plt Count 113 L D 117 L MPV 11.2 10.8 Absolute Nucleated RBC 0.000 0.000 Nucleated RBC % (auto) 0.0 0.0 Sodium 135 135 Potassium 3.6 3.9 Chloride 107 105 Carbon Dioxide 22 25 Anion Gap 10 L 9 L BUN 5 L 4 L Creatinine 0.58 0.55 Estim Creat Clear Calc 126.7 133.5 Estimated GFR > 60 > 60 Random Glucose 119 H 72 Calcium 7.6 L D 7.9 L Magnesium 1.5 L Total Bilirubin 1.9 H Direct Bilirubin 1.3 H AST 274 H ALT 34 H Alkaline Phosphatase 194 H Total Protein 6.9 Albumin 2.5 L Discharge Plan Discharge Anticipated Discharge Date/Time: 04/02/24 10:46 Patient Disposition: Home, Self-Care Discharge Diagnosis: Hematemesis Transaminitis Alcohol dependence Referrals: Carlee Dubois MD [Primary Care Provider] - 1 Week Discharge Medications: New magnesium oxide 200 mg magnesium tablet 200 mg PO BID Qty: 6 0RF omeprazole 20 mg tablet,delayed release (DR/EC) 20 mg PO BID Qty: 60 0RF Continued methadone [Methadone Intensol] 10 mg/mL Concentrate 50 mg PO DAILY Discharge Orders: Discharge Order (Routine); Ordered 04/02/24 Ordered By: Adela Tarango Diet: Advance to usual diet Activity on Discharge: As tolerated Stand Alone Forms: Patient Portal Discharge page, Work/School Release Print Language: Spanish Care Plan Goals: Do not drink alcohol, seek outpatient assistance for help with this Last methadone dose 04/02/2024 at 08:38 Health Concerns: Hematemesis Transaminitis Alcohol dependence Plan of Treatment: Follow-up with primary care provider as needed Take all medications as prescribed Assessment: See discharge summary Patient Instructions: Acute Nausea and Vomiting (DC)
[2024-04-02 12:00] VITALS: BP 109/78; PULSE 76; RESP 18; TEMP 36.4; O2SAT 96
== END 2024-04-02 12:51 | disposition home or self-care (01) | DRG 241 ==
LOC: HO.ED 13:00 → HO.EDOVER 14:00 → HO.IMC 19:33
PROVIDERS: Internal Medicine Gastroenterology; Admitting Provider Internal Medicine; Emergency Provider Emergency Medicine Emergency Medical Services; PCP Internal Medicine; Visit Provider Nurse Practitioner Acute Care
PROC: 0DB78ZX Excision of Stomach, Pylorus, Via Natural or Artificial Opening Endoscopic, Diagnostic (ICD-10-PCS; principal; 2024-04-01 12:40)
DX: K29.71 Gastritis, unspecified, with bleeding (principal); F10.20 Alcohol dependence, uncomplicated; F17.210 Nicotine dependence, cigarettes, uncomplicated; F11.20 Opioid dependence, uncomplicated; Z71.6 Tobacco abuse counseling; Y90.1 Blood alcohol level of 20-39 mg/100 ml; K70.0 Alcoholic fatty liver
CPT/HCPCS: 36415; 74177; 80048; 80053; 80076; 80307; 83690; 83735; 84702; 85014; 85018; 85025; 85027; 85610; 85730; 86850; 86900; 86901; 88305; 88313; 88342; 99285; J2405; J2470; J2560; J2704; J3430; Q9967

== ENCOUNTER → 2024-03-31 12:38 | Outpatient (BNV) | payer OTHER, SELFPAY | PROVIDERS: Admitting Provider Internal Medicine; Emergency Provider Emergency Medicine Emergency Medical Services; PCP Internal Medicine; Visit Provider Radiology Diagnostic Radiology | DX: R10.9 Unspecified abdominal pain (principal); R79.89 Other specified abnormal findings of blood chemistry | CPT/HCPCS: 74177 ==

== ENCOUNTER → 2024-03-31 13:57 | Outpatient (BNV) | payer OTHER, SELFPAY | PROVIDERS: Admitting Provider Internal Medicine; Emergency Provider Emergency Medicine Emergency Medical Services; PCP Internal Medicine; Visit Provider Nurse Practitioner Psychiatric/Mental Health | DX: F10.90 Alcohol use, unspecified, uncomplicated (principal) | CPT/HCPCS: 99222 ==

== ENCOUNTER → 2024-03-31 13:57 | Outpatient (BNV) | payer OTHER, SELFPAY | PROVIDERS: Admitting Provider Internal Medicine; Emergency Provider Emergency Medicine Emergency Medical Services; PCP Internal Medicine; Visit Provider Internal Medicine | DX: K92.0 Hematemesis (principal); F10.90 Alcohol use, unspecified, uncomplicated | CPT/HCPCS: 99222; 99232; 99239 ==

== ENCOUNTER 2024-04-16 12:07 | Inpatient (IN) | payer OTHER, SELFPAY ==
--- NOTE | ~2024-04-16 | CT_ITS ---
EXAMINATION: CT ABDOMEN AND PELVIS WITHOUT CONTRAST CLINICAL INFORMATION: Abdominal pain COMPARISON: CT abdomen and pelvis TECHNIQUE: Multidetector volumetric imaging was performed from the superior aspect of the liver through the pubic symphysis. Sagittal and coronal reformatted images were obtained on the technologist's workstation. This CT examination was performed using dose optimization techniques as appropriate, variously including the following: *Automated exposure control *Adjustment of mA and/or kV according to patient size (this includes techniques or standardized protocols for targeted exams where dose is matched to indication/reason for exam; i.e. extremities or head) *Use of iterative reconstruction technique FINDINGS: LUNG BASES: The visualized lung bases are unremarkable. LIVER, GALLBLADDER, AND BILIARY TREE: The liver is enlarged in size, shape, and diffusely attenuated especially right hepatic lobe from fatty infiltration. Liver measures 20 cm in AP length. No focal hepatic lesion or biliary ductal dilatation is present. The gallbladder is unremarkable with no evidence of radiopaque gallstones, gallbladder wall thickening, or obvious pericholecystic inflammatory changes. There is diffuse perihepatic ascites. PANCREAS: Unremarkable. SPLEEN: There is mild splenomegaly measuring 15 cm. ADRENAL GLANDS: There is 1.9 cm left adrenal lesion measuring -20 Hounsfield units suggestive of a benign adenoma. Right adrenal gland is normal. KIDNEYS AND URETERS: The kidneys are normal in size, shape, and attenuation. No hydronephrosis, hydroureter, or calculi seen. No perinephric stranding. BLADDER: Unremarkable. GASTROINTESTINAL TRACT: There is mild wall thickening ascending colon similar previous exam. Transverse and ascending colon is normal. Small bowel loops are normal caliber. Appendix is not seen. There is no free air. ABDOMINAL WALL: Small umbilical hernia containing fat. LYMPH NODES: Normal. VASCULAR: Unremarkable. PELVIC VISCERA: There is an IUD located within the endometrial canal. The uterus is anteverted. No adnexal mass seen. No abnormal pelvic lymphadenopathy. There is minimal free fluid in the pelvis. OSSEOUS STRUCTURES: Unremarkable. CT/CT abdomen pelvis wo IV con IMPRESSION: Mild hepatosplenomegaly similar to previous study. Heterogeneous liver. Findings suspicious for cirrhosis. There is moderate ascites. 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 Nonspecific mild thickening of ascending colon, stable.. Fleischner guidelines were followed. Electronically signed by: Chaz Martin MD 04/17/2024 01:49 PM EST RP
[2024-04-16 12:28] VITALS: BP 125/59; PULSE 93; RESP 18; TEMP 36.6; O2SAT 96; BMI 34.2
--- NOTE | 2024-04-16 12:28 | ED.GENADULT ---
HPI - General Adult General Chief complaint: General Medical Stated complaint: Vomiting Blood Time Seen by Provider: 04/16/24 17:07 Related Data Home Medications ?Medication ?Instructions ?Recorded ?Confirmed methadone 10 mg/mL oral 50 mg PO DAILY 03/31/24 03/31/24 concentrate (Methadone Intensol) Allergies Allergy/AdvReac Type Severity Reaction Status Date / Time No Known Allergies Allergy Verified 04/16/24 12:32 PMFSH Past Medical History Medical History Alcohol use disorder Substance abuse Alcohol abuse Anxiety Depression Social History Social History Household Members: Spouse Housing: Apartment Do you presently have visiting nurse or other home services: No Unable to assess alcohol history related to: Unknown Alcohol intake: current Alcohol intake frequency: 3 or more drinks per day Patient Tobacco Use Status: Current everyday Tobacco user Cigarette Packs Per Day: 0.5 Cigarettes Per Day: 10 Smoked in Last 30 Days: Yes Use of substances other than those prescribed or required for medical reasons: No Substance Use Type: Crack/Cocaine, Heroin and IV Drugs Advance Directives: No Advance Directives Information Provided: No Do you have a plan to hurt others: No Plan service: No Physical Exam ED Vital Signs: Vital Signs - 24 hr 04/16/24 12:28 04/16/24 16:00 Temperature 97.9 F Pulse Rate 93 100 Respiratory Rate 18 18 Blood Pressure 125/59 L 140/80 H Pulse Oximetry 96 95 Oxygen Delivery Method Room Air Room Air BMI result Body Mass Index 34.2 Course Course Course Narrative: This is a rapid medical exam performed by Yong Blake NP: Additional HPI, ROS, PE not included below will be deferred to primary provider. Patient is a 38-year-old female with history of alcohol use disorder, substance use disorder on methadone, anxiety, depression presenting with complaint of hematemesis for 2 weeks. Also reports sore throat, cough nausea. Seen here on 03/31 for acute alcoholic hepatitis. Plan: labs Medications Administered Generic Name Dose Route Start Last Admin Trade Name Freq PRN Reason Stop Dose Admin Lactated Ringer's 1,000 mls @ 100 mls/hr 04/16/24 18:30 04/16/24 19:09 Lr IVCONT 100 mls/hr .Q10H BRITTANIE Administration Discontinued Medications Generic Name Dose Route Start Last Admin Trade Name John PRN Reason Stop Dose Admin Sodium Chloride 1,000 mls @ 999 mls/hr 04/16/24 17:15 04/16/24 18:33 Ns IV 04/16/24 18:15 Infused .Q1H1M BRITTANIE Infusion Methadone HCl 50 mg 04/16/24 18:27 04/16/24 18:45 Methadone Hcl 20 Mg/2 Ml Oral.Conc PO 04/16/24 18:28 50 mg ONCE ONE Administration Ondansetron HCl 4 mg 04/16/24 17:21 04/16/24 17:28 Ondansetron Hcl 4 Mg/2 Ml Vial IVPUSH 04/16/24 17:22 4 mg ONCE ONE Administration Pantoprazole Sodium 80 mg 04/16/24 17:08 04/16/24 17:29 Pantoprazole Sodium 40 Mg/10 Ml Vial IVPUSH 04/16/24 17:09 80 mg ONCE ONE Administration Medical Decision Making Lab Data 04/16/24 14:04 04/16/24 14:04 Labs: Lab Results 04/16/24 04/16/24 Range/Units 14:04 17:36 WBC 8.5 (4.8-10.8) X10*3/uL RBC 2.83 L (4.20-5.50) X10*6/uL Hgb 9.0 L (12.0-16.0) g/dl Hct 27.5 L (37.0-47.0) % MCV 97.2 (80.0-98.0) fL MCH 31.8 (27.0-33.0) pg MCHC 32.7 (31.0-35.0) g/dl RDW 18.7 H (11.0-16.0) % Plt Count 138 L (160-400) X10*3/uL MPV 11.5 (9.4-12.3) fL Immature Gran % (Auto) 0.8 H (0.0-0.4) % Neut % (Auto) 70.4 (45-73) % Lymph % (Auto) 16.5 L (20-40) % [place] % (Auto) 9.6 (2-11) % Eos % (Auto) 1.9 (0-4) % Baso % (Auto) 0.8 (0-2) % Lymph # (Auto) 1.4 (1.2-4.9) X10*3/uL [place] # (Auto) 0.8 (0.1-1.2) X10*3/uL Eos # (Auto) 0.2 (0.0-0.4) X10*3/uL Baso # (Auto) 0.1 (0.0-0.2) X10*3/uL Abs Immat Gran (auto) 0.07 H (0.00-0.03) X10*3/uL Absolute Neuts (auto) 6.0 (2.0-8.3) x10*3/uL Absolute Nucleated RBC 0.000 (0.0-0.012) X10*3/uL Nucleated RBC % (auto) 0.0 (0.0-0.2) /100WBC PT 15.9 H (10.9-12.4) SEC INR 1.4 H (0.9-1.1) Sodium 138 (135-145) mmol/L Potassium 4.1 (3.3-5.1) mmol/L Chloride 103 (96-108) mmol/L Carbon Dioxide 29 (22-29) mmol/L Anion Gap 10 L (12-20) BUN 8 L (9-16) mg/dL Creatinine 0.54 (0.5-1.4) mg/dL Estim Creat Clear Calc 138.6 Estimated GFR > 60 Random Glucose 146 H (60-115) mg/dL Calcium 8.2 L (8.4-10.2) mg/dL Magnesium 1.8 (1.6-2.6) mg/dL Total Bilirubin 2.0 H (0.0-1.0) mg/dL AST 257 H (5-31) U/L ALT 36 H (0-31) U/L Alkaline Phosphatase 228 H (39-117) U/L Total Protein 7.7 (6.5-8.0) g/dL Albumin 2.5 L (3.5-5.0) g/dL Lipase 56 (8-78) U/L Beta HCG, Quant < 2 mIU/mL Stool Occult Blood NEGATIVE (NEGATIVE) Ethyl Alcohol 85 mg/dL Influenza Type A (PCR) NEGATIVE (Negative) Influenza Type B (PCR) NEGATIVE (Negative) RSV RNA Qual (PCR) NEGATIVE (Negative) SARS-CoV-2 RNA (RT-PCR) NEGATIVE (Negative) Discharge Plan Discharge Clinical Impression: Gastritis Patient Disposition: Admitted As Inpatient
[2024-04-16 14:26] LABS: MANUAL DIFF FLAG NO
[2024-04-16 14:30] LABS: Basophils Absolute Auto 0.1 X10*3/uL (0.0-0.2); Basophils Percent Auto 0.8 % (0-2); Eosinophils Absolute Auto 0.2 X10*3/uL (0.0-0.4); Eosinophils Percent Auto 1.9 % (0-4); Hematocrit 27.5 % (37.0-47.0); Imm Gran Abs Auto 0.07 X10*3/uL (0.00-0.03); Imm Gran Pct Auto 0.8 % (0.0-0.4); Lymphocytes Absolute Auto 1.4 X10*3/uL (1.2-4.9); Lymphocytes Percent Auto 16.5 % (20-40); Mean Corpuscular HGB Conc 32.7 g/dl (31.0-35.0); Mean Corpuscular Hemoglobin 31.8 pg (27.0-33.0); Mean Corpuscular Volume 97.2 fL (80.0-98.0); Mean Platelet Volume 11.5 fL (9.4-12.3); Monocytes Absolute Auto 0.8 X10*3/uL (0.1-1.2); Monocytes Percent Auto 9.6 % (2-11); Neutrophils Percent Auto 70.4 % (45-73); Platelet Count 138 X10*3/uL (160-400); Red Blood Count 2.83 X10*6/uL (4.20-5.50); Red Cell Distribution Width 18.7 % (11.0-16.0); White Blood Count 8.5 X10*3/uL (4.8-10.8)
[2024-04-16 14:39] LABS: INTERNATIONAL NORM RATIO 1.4 (0.9-1.1); Prothrombin Time 15.9 SEC (10.9-12.4)
[2024-04-16 14:49] LABS: Alanine Aminotransferase 36 U/L (0-31); Albumin Level 2.5 g/dL (3.5-5.0); Alkaline Phosphatase 228 U/L (39-117); Anion Gap 10 (12-20); Aspartate Amino Transferase 257 U/L (5-31); Blood Urea Nitrogen 8 mg/dL (9-16); Calcium 8.2 mg/dL (8.4-10.2); Carbon Dioxide 29 mmol/L (22-29); Chloride 103 mmol/L (96-108); Creatinine Clr Calc Pharmacy 138.6; Estimated Glomerular Filt Rate > 60; Ethanol 85 mg/dL; Glucose Random 146 mg/dL (60-115); Lipase 56 U/L (8-78); Magnesium 1.8 mg/dL (1.6-2.6); Potassium 4.1 mmol/L (3.3-5.1); Sodium 138 mmol/L (135-145); Total Protein 7.7 g/dL (6.5-8.0)
[2024-04-16 14:50] LABS: HCG Quantitative < 2 mIU/mL
[2024-04-16 16:00] VITALS: BP 140/80; PULSE 100; RESP 18; O2SAT 95
[2024-04-16] MEDS: 0.9 % Sodium Chloride 1,000 ML 999 ML IV (17:24)
--- NOTE | 2024-04-16 17:24 | ED_ITS ---
HPI - General Adult General Chief complaint: General Medical Stated complaint: Vomiting Blood Time Seen by Provider: 04/16/24 17:07 History of Present Illness HPI narrative: patient is a 38-year-old female with a history of alcoholic gastritis. recently had an endoscopy done. No varices. Patient is complaining of vomiting blood. Positive EtOH. Positive vomiting blood multiple times. There is no chest pain. There is no bloody stool. Patient is from home. History of polysubstance abuse. Currently on methadone. Patient does not think she is . No fever no chills. Had some mild coughing. Related Data Home Medications ?Medication ?Instructions ?Recorded ?Confirmed methadone 10 mg/mL oral 50 mg PO DAILY 03/31/24 03/31/24 concentrate (Methadone Intensol) Previous Rx's ?Medication ?Instructions ?Recorded magnesium oxide 200 mg PO BID #6 tabs 04/02/24 omeprazole 20 mg tablet,delayed 20 mg PO BID #60 tabs 04/02/24 release Allergies Allergy/AdvReac Type Severity Reaction Status Date / Time No Known Allergies Allergy Verified 04/16/24 12:32 Review of Systems 2 Review of Systems: Positive vomiting blood Yes all other systems are reviewed and are negative PMFSH Past Medical History Attestation statement: The following information was validated with the patient. Medical History Alcohol use disorder Substance abuse Alcohol abuse Anxiety Depression Social History Social History Household Members: Spouse Housing: Apartment Do you presently have visiting nurse or other home services: No Unable to assess alcohol history related to: Unknown Alcohol intake: current Alcohol intake frequency: 3 or more drinks per day Patient Tobacco Use Status: Current everyday Tobacco user Cigarette Packs Per Day: 0.5 Cigarettes Per Day: 10 Substance Use Type: Crack/Cocaine, Heroin and IV Drugs Advance Directives: No Advance Directives Information Provided: No Do you have a plan to hurt others: No Plan service: No Physical Exam ED Vital Signs: Vital Signs - 24 hr 04/16/24 12:28 Temperature 97.9 F Pulse Rate 93 Respiratory Rate 18 Blood Pressure 125/59 L Pulse Oximetry 96 Oxygen Delivery Method Room Air BMI result Body Mass Index 34.2 Appearance: Alert. Oriented X3. No acute distress. Eyes: Pupils equal, round and reactive to light. ENT: Pharynx normal. Neck: Normal inspection. Neck supple. No lymph nodes noted. No crepitus CVS: Normal heart rate and rhythm. Pulses normal. Normal S1 and S2 Respiratory: No respiratory distress. Breath sounds normal. No Wheezing. No rales Abdomen: Soft and nontender. No rigidity. No distention. good BS x4 rectal exam done with nurse Codie present. Brown stool was noted. Stool was sent off. Skin: Skin warm and dry. Normal skin color. Normal skin turgor. Extremities: No lower extremity edema. Neurovascular intact to all extremities. No Lacerations. No Rash Neuro: Oriented X 3. No motor deficit. No sensory deficit. Moving all extermities. No slurred speech Medications Administered Generic Name Dose Route Start Last Admin Trade Name Freq PRN Reason Stop Dose Admin Sodium Chloride 1,000 mls @ 999 mls/hr 04/16/24 17:15 04/16/24 17:24 Ns IV 04/16/24 18:15 999 mls/hr .Q1H1M BRITTANIE Administration Medical Decision Making Medical Decision Making [facility] Narrative: Patient's old record was reviewed. Previous endoscopy report shows gastritis only from the beginning of the month. Patient has a hemoglobin of 9 today. Baseline around 10.5 or so. Patient started on Protonix. Explained the need to stop drinking alcohol. Patient states understanding. IV fluid was started. Patient will require admission for further evaluation. Currently in stable condition. Of note patient's endoscopy did not show any evidence of varices. Differential Diagnosis Differential Diagnoses: The differential diagnosis associated with the presentation includes Gastritis likely secondary to alcohol, esophageal varices, vaginal bleeding, rectal bleeding Admission/Observation Consideration of admission/observation: Escalation of care including admission/observation considered Consult Healthcare Provider Management of the patient was discussed with: Hospitalist Lab Data [facility] Lab Attestation statement: I reviewed the patient's lab results. 04/16/24 14:04 04/16/24 14:04 Labs: Lab Results 04/16/24 Range/Units 14:04 WBC 8.5 (4.8-10.8) X10*3/uL RBC 2.83 L (4.20-5.50) X10*6/uL Hgb 9.0 L (12.0-16.0) g/dl Hct 27.5 L (37.0-47.0) % MCV 97.2 (80.0-98.0) fL MCH 31.8 (27.0-33.0) pg MCHC 32.7 (31.0-35.0) g/dl RDW 18.7 H (11.0-16.0) % Plt Count 138 L (160-400) X10*3/uL MPV 11.5 (9.4-12.3) fL Immature Gran % (Auto) 0.8 H (0.0-0.4) % Neut % (Auto) 70.4 (45-73) % Lymph % (Auto) 16.5 L (20-40) % [place] % (Auto) 9.6 (2-11) % Eos % (Auto) 1.9 (0-4) % Baso % (Auto) 0.8 (0-2) % Lymph # (Auto) 1.4 (1.2-4.9) X10*3/uL [place] # (Auto) 0.8 (0.1-1.2) X10*3/uL Eos # (Auto) 0.2 (0.0-0.4) X10*3/uL Baso # (Auto) 0.1 (0.0-0.2) X10*3/uL Abs Immat Gran (auto) 0.07 H (0.00-0.03) X10*3/uL Absolute Neuts (auto) 6.0 (2.0-8.3) x10*3/uL Absolute Nucleated RBC 0.000 (0.0-0.012) X10*3/uL Nucleated RBC % (auto) 0.0 (0.0-0.2) /100WBC PT 15.9 H (10.9-12.4) SEC INR 1.4 H (0.9-1.1) Sodium 138 (135-145) mmol/L Potassium 4.1 (3.3-5.1) mmol/L Chloride 103 (96-108) mmol/L Carbon Dioxide 29 (22-29) mmol/L Anion Gap 10 L (12-20) BUN 8 L (9-16) mg/dL Creatinine 0.54 (0.5-1.4) mg/dL Estim Creat Clear Calc 138.6 Estimated GFR > 60 Random Glucose 146 H (60-115) mg/dL Calcium 8.2 L (8.4-10.2) mg/dL Magnesium 1.8 (1.6-2.6) mg/dL Total Bilirubin 2.0 H (0.0-1.0) mg/dL AST 257 H (5-31) U/L ALT 36 H (0-31) U/L Alkaline Phosphatase 228 H (39-117) U/L Total Protein 7.7 (6.5-8.0) g/dL Albumin 2.5 L (3.5-5.0) g/dL Lipase 56 (8-78) U/L Beta HCG, Quant < 2 mIU/mL Ethyl Alcohol 85 mg/dL Independent Historian Clinical information obtained from an independent historian. History obtained from or confirmed by: Spouse External Record Review External record reviewed: Inpatient record previous GI record was reviewed. recent hospitalization records reviewed Tests considered The following testing was considered but not selected: no need for blood transfusion at this time Chronic Conditions Patient?s care impacted by: Hypertension Social Determinants Patient?s care significantly limited by Social Determinants of Health including: Alcoholism and drug addiction in family, Problems related to primary support group and Unemployment Discharge Plan Discharge Clinical Impression: Gastritis Patient Disposition: Admitted As Inpatient Prescriptions: No Action methadone [Methadone Intensol] 10 mg/mL Concentrate 50 mg PO DAILY magnesium oxide 200 mg magnesium tablet 200 mg PO BID Qty: 6 0RF omeprazole 20 mg tablet,delayed release (DR/EC) 20 mg PO BID Qty: 60 0RF Print Language: Luxembourgish
[2024-04-16] MEDS: ondansetron HCL 4 MG/2 ML VIAL IVPUSH ×2 (17:28→23:57)
[2024-04-16] MEDS: Pantoprazole Sodium 40 MG/10 ML VIAL 80 MG IVPUSH (17:29)
[2024-04-16 17:48] LABS: OBS Int Ctl Valid YES; OBS1 NEGATIVE (NEGATIVE)
[2024-04-16 18:17] LABS: Influenza A PCR NEGATIVE (Negative); Influenza B PCR NEGATIVE (Negative); Resp Syncy Virus RNA Qual PCR NEGATIVE (Negative); SARS COV2 PCR INHOUSE NEGATIVE (Negative)
--- NOTE | 2024-04-16 18:27 | PHA.MEDREC ---
Addendum entered by Gretchen Burton RPh 04/16/24 18:58: Med rec was reviewed by [facility]. Original Note: Pharmacy Consult ? Medication Reconciliation Pharmacy has completed the medication reconciliation.Spoke to patient to confirm med list. patient states she is only taking Methadone 50 mg daily from [facility] in [place], last dose was 04/15/23 , however she has todays dose with her.
--- OUTSIDE RECORDS SUMMARY | 2024-04-16 18:31 | XMS_ITS | Clinical Summary ---
Author Organization [facility] Address [address] [place] [address] Phone Care Team Providers Care Information Technology Administrator Name Role Phone Unavailable Primary Care Provider Unavailabl e Immunizations Name Administration Dates Next Due DTP 12/23/1998, 7,10/24/1991,09/22/18 91,05/23/1989 Hep B, ped/adol 04/26/1999,12/15/1998,10/28/1998 Hib (HbOC) 12/23/1998 Hib (PRP-T) 09/22/1990 IPV 12/23/1998, 7,10/24/1991,09/22/18 91,05/23/1989 MMR 03/25/1993,05/23/1989 Td (adult) (Tenivac), 5 Lf t etanus toxoid, PF, adsorbed 10/28/1998 Social History Tobacco Use Types Packs/Day Years Used Date Smoking Tobacco: Never Assessed Comments Unknown Sex and Gender Information Value Date Recorded Sex Assigned at Not on file Legal Sex Female 12:19 PM EDT Gender Identity Not on file Sexual Orientation Not on file Plan of Treatment Health Maintenance Due Date Last Done Comments Varicella Vaccines (1 of 2 - 13+ 2-dose series) 09/28/1999 Consider Men B Vaccine (1 of 2 - Bexsero 2-dose series) 2002 DTaP,Tdap,and Td Vaccines (7 - Tdap) 12/23/2008 12/23/1998, 10/28/1998, 12/23/1996, Additional history exists Influenza Vaccines (#1) 2023 COVID-19 Vaccine ( season) 2023 MMR Vaccines Completed 03/25/1993, 05/23/1989 HIB Vaccines Completed 12/23/1998, 09/22/1990 IPV Vaccines Completed 12/23/1998, 11/26, 10/24/1991, Additional history exists Hepatitis B Vaccines Completed 04/26/1999, 12/15/1998, 10/28/1998 HPV Vaccines Aged Out No longer eligi ble based on patient's age to complete this topic Hepatitis A Vaccines Aged Out No long er eligible based on patient's age to complete this topic Men B Vaccine Aged Out No longer elig ible based on patient's age to complete this topic Meningococcal Vaccine Aged Out No chloe rashid eligible based on patient's age to complete this topic Pneumococcal Vaccine Aged Out No long er eligible based on patient's age to complete this topic
--- OUTSIDE RECORDS SUMMARY | 2024-04-16 18:31 | XMS_ITS | Encounter Summary ---
Author Organization [facility] Address [address] [place] [address] Phone Care Team Providers Care Rayon Coner Name Role Phone Agustina Gama MD Primary Care Provider [phone] Encounter Details Date Type Department Care Team (Late st Contact Info) Description 11/09/2016 Conversion Encounter [facility] [place] [address] [place] [address] Social History Tobacco Use Types Packs/Day Years Used Date Smoking Tobacco: Never Assessed Comments Unknown Sex and Gender Information Value Date Recorded Sex Assigned at Not on file Legal Sex Female 12:19 PM EDT Gender Identity Not on file Sexual Orientation Not on file documented as of this encounter Plan of Treatment Not on file documented as of this encounter Visit Diagnoses Not on filedocumented in this encounter Care Teams Rayon Coner Relationship Specialty Start Date End Date Agustina Gama MD [address] [place] [address] PCP - General 11/03/16 08/30/22 documented as of this encounter
--- OUTSIDE RECORDS SUMMARY | 2024-04-16 18:31 | XMS_ITS | Encounter Summary ---
Author Organization [employer] Address [address] [place] [address] [address] [place] [address] Care Team Providers Care Voice Data Communications Engineer Name Role Phone Unavailable Primary Care Provider Unavailabl e Encounter Details Date Type Department Care Team (Latest Contact Info) Description 04/25/2018 Abstract C CONVERSIONS Dental, Provider, DDS Social History Tobacco Use Types Packs/Day Years Used Date Smoking Tobacco: Never Assessed Comments Unknown Sex and Gender Information Value Date Recorded Sex Assigned at Female 01/23/2022 10:32 AM EDT Legal Sex Female 10:32 AM EDT Gender Identity Female 01/23/2022 10:32 AM EDT Sexual Orientation Straight 01/23/2022 10 :32 AM EDT documented as of this encounter Plan of Treatment Not on file documented as of this encounter Visit Diagnoses Not on filedocumented in this encounter
--- OUTSIDE RECORDS SUMMARY | 2024-04-16 18:31 | XMS_ITS | Clinical Summary ---
Author Organization [employer] Address [address] [place] [address] [address] [place] [address] Care Team Providers Care Transportation Department Head Name Role Phone Unavailable Primary Care Provider Unavailabl e Social History Tobacco Use Types Packs/Day Years Used Date Smoking Tobacco: Never Assessed Comments Unknown Sex and Gender Information Value Date Recorded Sex Assigned at Female 01/23/2022 10:32 AM EDT Legal Sex Female 10:32 AM EDT Gender Identity Female 01/23/2022 10:32 AM EDT Sexual Orientation Straight 01/23/2022 10 :32 AM EDT Plan of Treatment Health Maintenance Due Date Last Done Comments Depression Screening 1986 Alcohol/Substance Use Screening 1998 Tobacco Screening 1998 Family Planning (PISQ) 2001 DTaP/Tdap/Td Vaccines (1 - Tdap) 2005 Hepatitis B Vaccines (1 of 3 - 19+ 3-dose series) 2005 Pap Smear 09/28/2007 Cervical Cancer Screening 2016 HPV/Cotest 2016 COVID-19 Vaccine ( - 2023-2 5 season) 2023 Influenza Vaccine (#1) 2023 Zoster Vaccines (1 of 2) 2036 RSV Patients and Pa tients Aged 60 years or older (1 - 1-dose 75+ series) 2061 HIB Vaccines Aged Out No longer eligi ble based on patient's age to complete this topic HPV Vaccines Aged Out No longer eligi ble based on patient's age to complete this topic Hepatitis A Vaccines Aged Out No long er eligible based on patient's age to complete this topic IPV Vaccines Aged Out No longer eligi ble based on patient's age to complete this topic Meningococcal Vaccine Aged Out No chloe rashid eligible based on patient's age to complete this topic Pneumococcal Vaccine: Pediat rics (0 to 5 Years) and At-Risk Patients (6 to 64 Years) Aged Out No longer eligible b ased on patient's age to complete this topic RSV under 20 months Aged Out No longe r eligible based on patient's age to complete this topic Rotavirus Vaccines Aged Out No longer eligible based on patient's age to complete this topic
--- NOTE | 2024-04-16 18:34 | P.HPHOSP_ITS ---
History of Present Illness Date of Service: 04/16/24 Chief Complaint: Vomiting blood 38-year-old female with known history of alcohol abuse and polysubstance abuse on methadone presents today after what she describes as 24-48 hours of vomiting blood. Patient was recently admitted 03/31 through 04/02/2024 with diagnosis of upper GI bleed. She was seen in consultation by Dr. Apodaca; EGD demonstrated gastritis without varices. Patient states she did well however started once again to drink at least 10 nips of whiskey a day plus margaritas. She states she has not been able to hold any liquids down since this began. She denies a history of alcohol withdrawal seizures Review of Systems 2 Review of Systems: Denies chest pain Denies shortness of breath Denies nausea vomiting diarrhea Denies fever chills PMFSH Medical History Alcohol use disorder Substance abuse Alcohol abuse Anxiety Depression Social History Household Members: Spouse Housing: Apartment Do you presently have visiting nurse or other home services: No Unable to assess alcohol history related to: Unknown Alcohol intake: current Alcohol intake frequency: 3 or more drinks per day Patient Tobacco Use Status: Current everyday Tobacco user Cigarette Packs Per Day: 0.5 Cigarettes Per Day: 10 Smoked in Last 30 Days: Yes Use of substances other than those prescribed or required for medical reasons: No Substance Use Type: Crack/Cocaine, Heroin and IV Drugs Advance Directives: No Advance Directives Information Provided: No Do you have a plan to hurt others: No Plan service: No Meds Allergies Allergy/AdvReac Type Severity Reaction Status Date / Time No Known Allergies Allergy Verified 04/16/24 12:32 Active Medications: Current Medications Acetaminophen (Acetaminophen 325 Mg Tablet) 650 mg PO Q6H PRN PRN Reason: Pain, Mild 1-3,fever,headache Calcium Carbonate (Calcium Carbonate 750 Mg Tab.Chew) 750 mg PO Q4H PRN PRN Reason: Heartburn Enoxaparin Sodium (Enoxaparin Sodium 40 Mg/0.4 Ml Syringe) 40 mg SUBCUT Q24H BRITTANIE Lactated Ringer's (Lr) 1,000 mls @ 100 mls/hr IVCONT .Q10H BRITTANIE Magnesium Hydroxide (Milk Of Magnesia 30 Ml Oral.Susp) 30 ml PO DAILY PRN PRN Reason: Constipation Melatonin (Melatonin 3 Mg Tablet) 6 mg PO BEDTIME PRN PRN Reason: Insomnia Ondansetron HCl (Ondansetron Hcl 4 Mg/2 Ml Vial) 4 mg IVPUSH Q4H PRN PRN Reason: Nausea and Vomiting Pantoprazole Sodium (Pantoprazole Sodium 40 Mg/10 Ml Vial) 40 mg IVPUSH BID@0630,1630 [facility] Sodium Chloride (0.9 % Sodium Chloride Flush 3 Ml Syringe) 3 ml IVFLUSH QSHIFT [facility] Home Medications ?Medication ?Instructions ?Recorded ?Confirmed ?Last Taken ?Type methadone 10 mg/mL oral 50 mg PO DAILY 03/31/24 03/31/24 03/30/24 History concentrate (Methadone Intensol) Physical Exam 2 Vital Signs and Narrative: Vital Signs: Last Vital Signs Temp 97.9 F 04/16/24 12:28 Pulse 100 04/16/24 16:00 Resp 18 04/16/24 16:00 BP 140/80 H 04/16/24 16:00 Pulse Ox 95 04/16/24 16:00 O2 Del Method Room Air 04/16/24 16:00 BMI result Body Mass Index 34.2 Const: Other: Awake alert no acute distress Resp: Other: Clear to auscultation bilaterally with occasional expiratory wheezes throughout Cardio: Other: No S4; positive S1-S2; no S3 murmurs rubs or gallops GI: Other: Soft nontender nondistended normoactive bowel sounds. No acute peritoneal signs Neuro: Other: Cranial nerves 2-12 grossly intact as tested. Motor 5/5 all extremities. Sensation intact. Cognition appropriate. Gait not observed Extrem: Other: No edema bilaterally Results Labs 04/16/24 14:04 04/16/24 14:04 Labs: Laboratory Results - last 24 hr 04/16/24 04/16/24 14:04 17:36 MCV 97.2 MCH 31.8 MCHC 32.7 RDW 18.7 H Plt Count 138 L MPV 11.5 Immature Gran % (Auto) 0.8 H Neut % (Auto) 70.4 Lymph % (Auto) 16.5 L [place] % (Auto) 9.6 Eos % (Auto) 1.9 Baso % (Auto) 0.8 Lymph # (Auto) 1.4 [place] # (Auto) 0.8 Eos # (Auto) 0.2 Baso # (Auto) 0.1 Abs Immat Gran (auto) 0.07 H Absolute Neuts (auto) 6.0 Absolute Nucleated RBC 0.000 Nucleated RBC % (auto) 0.0 PT 15.9 H INR 1.4 H Anion Gap 10 L Estim Creat Clear Calc 138.6 Estimated GFR > 60 Random Glucose 146 H Calcium 8.2 L Magnesium 1.8 Total Bilirubin 2.0 H AST 257 H ALT 36 H Alkaline Phosphatase 228 H Total Protein 7.7 Albumin 2.5 L Lipase 56 Beta HCG, Quant < 2 Stool Occult Blood NEGATIVE Ethyl Alcohol 85 Influenza Type A (PCR) NEGATIVE Influenza Type B (PCR) NEGATIVE RSV RNA Qual (PCR) NEGATIVE SARS-CoV-2 RNA (RT-PCR) NEGATIVE Assessment and Plan (1) Upper GI bleed: Status: Acute (2) Gastritis: Qualifiers: Gastritis type: alcoholic Chronicity: acute Gastritis bleeding: with bleeding Qualified Code(s): K29.21 - Alcoholic gastritis with bleeding Status: Acute (3) Substance abuse: Status: Acute Plan 38-year-old female with known history of polysubstance abuse and alcohol abuse recently admitted 03/31 through 04/02/2024 for upper GI bleed found to have gastritis by EGD. States she was feeling good when discharge and decided to resume her alcohol intake. States she has been drinking upwards of 10 nips of whiskey per day along with other assorted alcoholic beverages. States over the last 2 weeks she has noticed increasing episodes of vomitus with blood leading to kait bloody vomitus. This prompted her to come to the emergency room to seek treatment 1. Upper GI bleed likely secondary to alcoholic gastritis -admit med surge NPO acute setting -supplemental IV fluids -IV pantoprazole b.i.d. -GI consult in a.m. 2. Alcohol abuse -likely cause of gastritis and bleeding; denies history of withdrawal seizures -observe on CIWA scale overnight -add phenobarb protocol if CIWA active 3. Polysubstance abuse on methadone -patient states has not taken her dose today however did take dose yesterday -methadone 50 mg this evening -addiction Medicine consult in a.m. Full code Ambulation Patient will require at least 2 midnights going forward for IV pantoprazole and CIWA scale to treat alcoholic gastritis and monitor withdrawal symptoms. This can not be achieved a lesser Quality Stroke Does the patient have a stroke diagnosis?: No VTE Prior VTE?: No VTE Risk Level:: Medical - moderate - high VTE Device Contraindication: Treatment Not Indicated VTE Drug Contraindication: N/A - Med Ordered
[2024-04-16] MEDS: methADONE HCl 20 MG/2 ML ORAL.CONC 50 MG PO (18:45)
[2024-04-16] MEDS: Lactated Ringers 1,000 ML 100 ML IVCONT (19:09)
[2024-04-16 20:15] VITALS: BP 112/62; PULSE 88; RESP 18; TEMP 36.9; O2SAT 99
[2024-04-17 00:30] VITALS: BP 117/59; PULSE 92; RESP 14; TEMP 37.3; O2SAT 94
[2024-04-17] MEDS: PHENobarbitaL sodium 130 MG/ML IM ONCE 192 MG IM (00:38)
[2024-04-17 04:00] VITALS: BP 123/65; PULSE 86; RESP 16; O2SAT 96
[2024-04-17] MEDS: PHENobarbitaL sodium 65 MG/ML VIAL Q3Hx2 144 MG IM ×2 (04:29→06:50)
[2024-04-17] MEDS: Lactated Ringers 1,000 ML 100 ML IVCONT ×2 (04:31→14:48)
[2024-04-17] MEDS: ondansetron HCL 4 MG/2 ML VIAL IVPUSH ×2 (05:41→12:44)
[2024-04-17 05:50] LABS: MANUAL DIFF FLAG NO
[2024-04-17 05:51] LABS: Basophils Absolute Auto 0.1 X10*3/uL (0.0-0.2); Basophils Percent Auto 0.5 % (0-2); Eosinophils Absolute Auto 0.1 X10*3/uL (0.0-0.4); Eosinophils Percent Auto 0.9 % (0-4); Hematocrit 27.9 % (37.0-47.0); Hemoglobin 9.4 g/dl (12.0-16.0); Imm Gran Abs Auto 0.06 X10*3/uL (0.00-0.03); Imm Gran Pct Auto 0.5 % (0.0-0.4); Lymphocytes Absolute Auto 2.3 X10*3/uL (1.2-4.9); Lymphocytes Percent Auto 20.9 % (20-40); Mean Corpuscular HGB Conc 33.7 g/dl (31.0-35.0); Mean Corpuscular Hemoglobin 32.6 pg (27.0-33.0); Mean Corpuscular Volume 96.9 fL (80.0-98.0); Mean Platelet Volume 11.5 fL (9.4-12.3); Monocytes Absolute Auto 0.7 X10*3/uL (0.1-1.2); Monocytes Percent Auto 6.5 % (2-11); Neutrophils Absolute Auto 7.9 x10*3/uL (2.0-8.3); Neutrophils Percent Auto 70.7 % (45-73); Platelet Count 165 X10*3/uL (160-400); Red Blood Count 2.88 X10*6/uL (4.20-5.50); Red Cell Distribution Width 19.2 % (11.0-16.0); White Blood Count 11.1 X10*3/uL (4.8-10.8)
[2024-04-17 06:05] LABS: Alanine Aminotransferase 33 U/L (0-31); Albumin Level 2.7 g/dL (3.5-5.0); Alkaline Phosphatase 221 U/L (39-117); Anion Gap 14 (12-20); Aspartate Amino Transferase 254 U/L (5-31); Bilirubin Total 2.6 mg/dL (0.0-1.0); Blood Urea Nitrogen 13 mg/dL (9-16); Calcium 8.5 mg/dL (8.4-10.2); Carbon Dioxide 22 mmol/L (22-29); Chloride 108 mmol/L (96-108); Creatinine Clr Calc Pharmacy 126.8; Estimated Glomerular Filt Rate > 60; Glucose Random 107 mg/dL (60-115); Sodium 139 mmol/L (135-145); Total Protein 8.5 g/dL (6.5-8.0)
[2024-04-17] MEDS: Pantoprazole Sodium 40 MG/10 ML VIAL IVPUSH ×2 (06:47→16:36)
[2024-04-17 08:24] VITALS: BP 110/58; PULSE 81; RESP 18; O2SAT 92
--- NOTE | 2024-04-17 08:31 | MHC.RECOVRN ---
AUDIT-C Brief Intervention Pt had positive screen for unhealthy alcohol use on admission. Attempted to meet with pt to discuss alcohol use and offer resources, pt declined.
--- NOTE | 2024-04-17 09:05 | PC.NURSE ---
Methadone dose verified by this RN through [facility], form sent to pharmacy. Pt reported she took her last take home bottle last night.
[2024-04-17] MEDS: Phytonadione (Vit K1) 10 MG in 0.9 % Sodium Chloride 50 ML 51 MG IV (09:53)
[2024-04-17 12:45] VITALS: RESP 18
[2024-04-17] MEDS: Morphine Sulfate 4 MG/ML CARTRIDGE IVPUSH (12:45)
[2024-04-17 13:11] LABS: Lipase 68 U/L (8-78)
[2024-04-17] MEDS: PHENobarbitaL 30 MG TABLET PO ×2 (14:48→23:36)
--- NOTE | 2024-04-17 14:53 | MHC.RECOVRN ---
Pt declined to meet with Addiction Services. Resources given to pts RN to pass along to pt.
[2024-04-17 15:18] VITALS: BMI 35.9
[2024-04-17 15:20] VITALS: BP 111/65; PULSE 75; RESP 16; TEMP 36.5; O2SAT 95
--- NOTE | 2024-04-17 15:21 | MHC.CM.PN ---
SUPERVISOR SHIPPING MET WITH PT IN ED PT STATES THAT SHE LIVES AT HOME WITH FAMILY SHE DOES NOT RECEIVE SERVICES SHE DOES NOT USE DME PT'S HCP IS DEVORAH BEAVERS, ( ) HCP ON FILE AT [facility] PT'S PCP IS SILVINA INTERIANO PT HAS HNE PT DCO- HOME NO SERVICES VIA PRIVATE TRANSPORT
[2024-04-17] MEDS: 0.9 % Sodium Chloride Flush 3 ML SYRINGE IVFLUSH (16:36)
--- NOTE | 2024-04-17 16:49 | P.PNIM_ITS ---
Subjective Subjective Date of Service: 04/17/24 Interval History: Episodes overnight noted. Started on phenobarb protocol for increased CIWA score. Doing well this a.m.. Did complain of abdominal pain Review of Systems Denies chest pain Denies shortness of breath Denies nausea vomiting diarrhea Denies fever chills Physical Exam 2 Vital Signs: Vital Signs: Last Vital Signs Temp 97.7 F 04/17/24 15:20 Pulse 75 04/17/24 15:20 Resp 16 04/17/24 15:20 BP 111/65 04/17/24 15:20 Pulse Ox 95 04/17/24 15:20 O2 Del Method Room Air 04/17/24 15:20 BMI result Body Mass Index 35.9 Const: Other: Awake alert no acute distress Resp: Other: Clear to auscultation bilaterally with occasional expiratory wheezes throughout Cardio: Other: No S4; positive S1-S2; no S3 murmurs rubs or gallops GI: Other: Soft nontender nondistended normoactive bowel sounds. No acute peritoneal signs Neuro: Other: Cranial nerves 2-12 grossly intact as tested. Motor 5/5 all extremities. Sensation intact. Cognition appropriate. Gait not observed Extrem: Other: No edema bilaterally Objective Data Active Medications Acetaminophen (Acetaminophen 325 Mg Tablet) 650 mg PO Q6H PRN PRN Reason: Pain, Mild 1-3,fever,headache Calcium Carbonate (Calcium Carbonate 750 Mg Tab.Chew) 750 mg PO Q4H PRN PRN Reason: Heartburn Lactated Ringer's (Lr) 1,000 mls @ 100 mls/hr IVCONT .Q10H BRITTANIE Last Admin: 04/17/24 14:48 Dose: 100 mls/hr Documented By: THAIS Magnesium Hydroxide (Milk Of Magnesia 30 Ml Oral.Susp) 30 ml PO DAILY PRN PRN Reason: Constipation Melatonin (Melatonin 3 Mg Tablet) 6 mg PO BEDTIME PRN PRN Reason: Insomnia Methadone HCl (Methadone Hcl 20 Mg/2 Ml Oral.Conc) 50 mg PO BEDTIME BRITTANIE Morphine Sulfate (Morphine Sulfate 4 Mg/Ml Cartridge) 4 mg IVPUSH Q4H PRN; Protocol PRN Reason: abd pain Last Admin: 04/17/24 12:45 Dose: 4 mg Documented By: THAIS Ondansetron HCl (Ondansetron Hcl 4 Mg/2 Ml Vial) 4 mg IVPUSH Q4H PRN PRN Reason: Nausea and Vomiting Last Admin: 04/17/24 12:44 Dose: 4 mg Documented By: THAIS Pantoprazole Sodium (Pantoprazole Sodium 40 Mg/10 Ml Vial) 40 mg IVPUSH BID@0630,1630 [facility] Last Admin: 04/17/24 16:36 Dose: 40 mg Documented By: ANA Pharmacy Consult (Consult Rx Etoh Phenob Im/Po) 1 each MISCELLANE ONCE PRN; Protocol PRN Reason: Consult order Phenobarbital (Phenobarbital 30 Mg Tablet) 30 mg PO BID [facility]; Protocol Stop: 04/18/24 21:01 Last Admin: 04/17/24 14:48 Dose: 30 mg Documented By: THAIS Phenobarbital (Phenobarbital 15 Mg Tablet) 15 mg PO BID [facility]; Protocol Stop: 04/20/24 21:01 Phenobarbital (Phenobarbital 15 Mg Tablet) 15 mg PO DAILY [facility]; Protocol Stop: 04/22/24 09:01 Sodium Chloride (0.9 % Sodium Chloride Flush 3 Ml Syringe) 3 ml IVFLUSH QSHIFT [facility] Last Admin: 04/17/24 16:36 Dose: 3 ml Documented By: ANA Labs 04/17/24 05:45 04/17/24 05:45 Labs: Laboratory Results - last 24 hr 04/16/24 04/17/24 17:36 05:45 MCV 96.9 MCH 32.6 MCHC 33.7 RDW 19.2 H Plt Count 165 MPV 11.5 Immature Gran % (Auto) 0.5 H Neut % (Auto) 70.7 Lymph % (Auto) 20.9 [place] % (Auto) 6.5 Eos % (Auto) 0.9 Baso % (Auto) 0.5 Lymph # (Auto) 2.3 [place] # (Auto) 0.7 Eos # (Auto) 0.1 Baso # (Auto) 0.1 Abs Immat Gran (auto) 0.06 H Absolute Neuts (auto) 7.9 Absolute Nucleated RBC 0.000 Nucleated RBC % (auto) 0.0 Anion Gap 14 Estim Creat Clear Calc 126.8 Estimated GFR > 60 Random Glucose 107 Calcium 8.5 Total Bilirubin 2.6 H AST 254 H ALT 33 H Alkaline Phosphatase 221 H Total Protein 8.5 H Albumin 2.7 L Lipase 68 Stool Occult Blood NEGATIVE Influenza Type A (PCR) NEGATIVE Influenza Type B (PCR) NEGATIVE RSV RNA Qual (PCR) NEGATIVE SARS-CoV-2 RNA (RT-PCR) NEGATIVE Assessment and Plan (1) Upper GI bleed: Status: Acute (2) Gastritis: Status: Acute Plan 38-year-old female with known history of polysubstance abuse and alcohol abuse recently admitted 03/31 through 04/02/2024 for upper GI bleed found to have gastritis by EGD. States she was feeling good when discharge and decided to resume her alcohol intake. States she has been drinking upwards of 10 nips of whiskey per day along with other assorted alcoholic beverages. States over the last 2 weeks she has noticed increasing episodes of vomitus with blood leading to kait bloody vomitus. This prompted her to come to the emergency room to seek treatment 1. Upper GI bleed likely secondary to alcoholic gastritis -admit med surge NPO acute setting -supplemental IV fluids -IV pantoprazole b.i.d. -GI consult 2. Abdominal pain with ascites on CT -IR consultation in a.m. for questionable paracentesis 3. Alcohol abuse -likely cause of gastritis and bleeding; denies history of withdrawal seizures -increased score on CIWA scale overnight -phenobarb protocol initiated 4. Polysubstance abuse on methadone -patient states has not taken her dose today however did take dose yesterday -methadone 50 mg this evening -addiction Medicine consult in a.m. Full code Ambulation Patient will require at least 2 midnights going forward for IV pantoprazole and CIWA scale to treat alcoholic gastritis and monitor withdrawal symptoms. This can not be achieved a lesser Quality Stroke Does the patient have a stroke diagnosis?: No VTE Prior VTE?: No VTE Risk Level:: Medical - moderate - high VTE Device Contraindication: Treatment Not Indicated VTE Drug Contraindication: N/A - Med Ordered
[2024-04-17 19:00] VITALS: BP 109/58; PULSE 69; RESP 15; TEMP 36.3; O2SAT 93
[2024-04-17] MEDS: methADONE HCl 20 MG/2 ML ORAL.CONC 50 MG PO (21:00)
--- NOTE | 2024-04-17 22:23 | CONS_ITS ---
DATE OF SERVICE: 04/17/2024 REFERRING PHYSICIAN: Dr. Mackey REASON FOR CONSULTATION: Upper GI bleeding. HISTORY OF PRESENT ILLNESS: The patient is a 38-year-old woman known to me from prior evaluation. She was recently hospitalized with GI bleeding and underwent upper endoscopy on April 01, which showed gastritis. She was discharged, but reports not taking any acid suppressive medications as an outpatient. Unfortunately, she resumed drinking alcohol and developed recurrent symptoms of vomiting with blood. She denies any melena, although she states stools have been dark. She was evaluated in the emergency department where laboratory studies were obtained showing a hematocrit of 27.5, which was down slightly from 2 weeks ago at 32. This has remained stable overnight. She has had no further hematemesis. Rectal examination at the time of admission was negative for occult blood. PAST MEDICAL HISTORY: 1. Alcohol abuse, as above. 2. Anxiety/depression. 3. Recent admission for upper GI bleeding from gastritis. CURRENT MEDICATIONS: Her current medication list is reviewed in the chart. ALLERGIES: THERE ARE NONE REPORTED. FAMILY HISTORY: This is reviewed with the patient. SOCIAL HISTORY: Substance abuse with alcohol abuse and opiate use. She does take methadone. REVIEW OF SYSTEMS: SKIN: No pruritus. HEENT: Negative. CARDIOPULMONARY: No shortness of breath or chest pain. GASTROINTESTINAL: As above. GENITOURINARY: Negative. NEUROPSYCHIATRIC: Negative. PHYSICAL EXAMINATION: GENERAL: Shows a pleasant female, in no acute distress. VITAL SIGNS: Reviewed in the electronic medical record and are stable. SKIN: Anicteric. There are spider angiomata across the upper chest. HEENT: Shows no scleral icterus. NECK: Without lymphadenopathy or thyromegaly. LUNGS: Clear. HEART: Shows regular rate and rhythm. S1, S2. No murmur. ABDOMEN: Soft, but protuberant. Bowel sounds are present. There is no guarding, tenderness, or rebound. EXTREMITIES: Without edema. LABORATORY DATA: Reviewed. A CT scanning at her last admission was reviewed as well. IMPRESSION: Upper gastrointestinal bleeding. Her upper GI bleeding appears consistent with an exacerbation of her gastritis by continued alcohol abuse and lack of use of proton pump inhibitors. At this time, she appears stable with no further bleeding and I have not recommended repeat upper endoscopy. I would recommend treating her for gastritis with a proton pump inhibitor and following her H and H. I did discuss with her the need to avoid alcohol. Thanks for asking me to see her. I will follow her in the hospital with you. MD SANGEETHA Dixon/CLAUDIA / [phone]
[2024-04-18 00:42] LABS: Amphetamine Screen Urine Not Detected (Not Detect); Barbiturates, Urine POSITIVE (Not Detect); Benzodiazepines Screen Urine Not Detected (Not Detect); Buprenorphine Scr Not Detected (Not Detect); Cannabinoid Screen Urine Not Detected (Not Detect); Cocaine Screen Urine Not Detected (Not Detect); Fentanyl, urine Not Detected (Not Detect); Methadone Screen, Urine Positive (Not Detect); Opiate Screen Urine POSITIVE (Not Detect); Oxycodone Screen Urine Not Detected (Not Detect); Phencyclidine Screen Urine Not Detected (Not Detect)
[2024-04-18] MEDS: Lactated Ringers 1,000 ML 100 ML IVCONT (00:42)
[2024-04-18 04:00] VITALS: BP 110/61; PULSE 80; RESP 16; TEMP 37.2; O2SAT 94
[2024-04-18] MEDS: Pantoprazole Sodium 40 MG/10 ML VIAL IVPUSH (05:43)
[2024-04-18] MEDS: PHENobarbitaL 30 MG TABLET PO (07:59)
[2024-04-18 08:00] VITALS: BP 131/78; PULSE 85; RESP 20; TEMP 37.2; O2SAT 96
[2024-04-18] MEDS: 0.9 % Sodium Chloride Flush 3 ML SYRINGE IVFLUSH (08:05)
[2024-04-18 10:20] LABS: MANUAL DIFF FLAG NO
[2024-04-18 10:39] LABS: Basophils Percent Auto 0.8 % (0-2); Eosinophils Absolute Auto 0.1 X10*3/uL (0.0-0.4); Eosinophils Percent Auto 2.5 % (0-4); Hematocrit 22.6 % (37.0-47.0); Hemoglobin 7.5 g/dl (12.0-16.0); Imm Gran Abs Auto 0.04 X10*3/uL (0.00-0.03); Imm Gran Pct Auto 0.8 % (0.0-0.4); Lymphocytes Absolute Auto 1.1 X10*3/uL (1.2-4.9); Lymphocytes Percent Auto 21.4 % (20-40); Mean Corpuscular HGB Conc 33.2 g/dl (31.0-35.0); Mean Corpuscular Hemoglobin 32.3 pg (27.0-33.0); Mean Corpuscular Volume 97.4 fL (80.0-98.0); Monocytes Absolute Auto 0.4 X10*3/uL (0.1-1.2); Monocytes Percent Auto 8.4 % (2-11); Neutrophils Absolute Auto 3.5 x10*3/uL (2.0-8.3); Neutrophils Percent Auto 66.1 % (45-73); Red Blood Count 2.32 X10*6/uL (4.20-5.50); Red Cell Distribution Width 19.6 % (11.0-16.0); White Blood Count 5.2 X10*3/uL (4.8-10.8)
[2024-04-18 10:52] LABS: Alanine Aminotransferase 27 U/L (0-31); Albumin Level 2.2 g/dL (3.5-5.0); Anion Gap 9 (12-20); Aspartate Amino Transferase 217 U/L (5-31); Bilirubin Total 2.5 mg/dL (0.0-1.0); Blood Urea Nitrogen 9 mg/dL (9-16); Calcium 7.8 mg/dL (8.4-10.2); Carbon Dioxide 24 mmol/L (22-29); Chloride 108 mmol/L (96-108); Creatinine Clr Calc Pharmacy 159.9; Estimated Glomerular Filt Rate > 60; Glucose Fasting 79 mg/dL (60-99); Potassium 3.9 mmol/L (3.3-5.1); Sodium 137 mmol/L (135-145); Total Protein 6.8 g/dL (6.5-8.0)
--- NOTE | 2024-04-18 13:09 | P.DS_ITS ---
DS: Providers Provider Date of Service: 04/18/24 Date of admission: 04/16/24 18:29 Date of discharge: 04/18/24 Primary care physician: Carlee Dubois MD Consults: 04/16/24 18:33 Addiction Medicine Routine Consulting Provider: Addiction Covering Reason for consultation: methadone Has provider been notified: No Consult to Gastroenterology Routine Consulting Provider: Ray Apodaca Reason for consultation: UGIB Has provider been notified: No DS: Diagnosis Discharge Diagnosis (1) Upper GI bleed: Status: Acute (2) Gastritis: Status: Acute DS: Summary Hospital Course Hospital Course: 38-year-old female with known history of alcohol abuse and polysubstance abuse on methadone presents today after what she describes as 24-48 hours of vomiting blood. Patient was recently admitted 03/31 through 04/02/2024 with diagnosis of upper GI bleed. She was seen in consultation by Dr. Apodaca; EGD demonstrated gastritis without varices. Patient states she did well however started once again to drink at least 10 nips of whiskey a day plus margaritas. She states she has not been able to hold any liquids down since this began. She denies a history of alcohol withdrawal seizures Hospital Course Patient admitted to general medical floor and started on clear liquids. Consult was placed to Dr. Apodaca however given her recent scope in findings of gastritis, no repeat endoscopy was indicated. Patient was maintained on pantoprazole IV b.i.d. and diet was able to be advanced without issue. No further bleeding since admission. At this point in time she has been strongly advised to seek help for alcohol consumption and avoid alcohol at all cost. At this point in time she is medically acceptable for discharge Time Attestation Discharge Coordination Time (in mins): 35 Quality: Safe Use of Opioids Does Pt have an Active Cancer Diagnosis on the Problem List?: No Quality: Stroke Does the patient have a stroke diagnosis?: No Physical Exam Vital Signs: Vital Signs: Last Vital Signs Temp 98.9 F 04/18/24 08:00 Pulse 85 04/18/24 08:00 Resp 20 04/18/24 08:00 BP 131/78 04/18/24 08:00 Pulse Ox 96 04/18/24 08:00 O2 Del Method Room Air 04/18/24 08:00 BMI result Body Mass Index 35.9 Const: Other: Awake alert no acute distress Resp: Other: Clear to auscultation bilaterally with occasional expiratory wheezes throughout Cardio: Other: No S4; positive S1-S2; no S3 murmurs rubs or gallops GI: Other: Soft nontender nondistended normoactive bowel sounds. No acute peritoneal signs Neuro: Other: Cranial nerves 2-12 grossly intact as tested. Motor 5/5 all extremities. Sensation intact. Cognition appropriate. Gait not observed Extrem: Other: No edema bilaterally DS: Data Data Completed and Pending Completed studies during hospitalization [Text1]: Procedures Detoxification Services for Substance Abuse Treatment (03/31/24) Excision of Stomach, Pylorus, Via Natural or Artificial Opening Endoscopic, Diagnostic (03/31/24) Labs on day of discharge: Laboratory Results - last 24 hr 04/17/24 04/18/24 04/18/24 05:45 00:13 10:15 WBC 5.2 RBC 2.32 L Hgb 7.5 L D Hct 22.6 L MCV 97.4 MCH 32.3 MCHC 33.2 RDW 19.6 H Plt Count TNP MPV TNP Immature Gran % (Auto) 0.8 H Neut % (Auto) 66.1 Lymph % (Auto) 21.4 [place] % (Auto) 8.4 Eos % (Auto) 2.5 Baso % (Auto) 0.8 Lymph # (Auto) 1.1 L [place] # (Auto) 0.4 Eos # (Auto) 0.1 Baso # (Auto) 0.0 Abs Immat Gran (auto) 0.04 H Absolute Neuts (auto) 3.5 Absolute Nucleated RBC 0.000 Nucleated RBC % (auto) 0.0 Sodium 137 Potassium 3.9 D Chloride 108 Carbon Dioxide 24 Anion Gap 9 L BUN 9 Creatinine 0.48 L Estim Creat Clear Calc 159.9 Estimated GFR > 60 Fasting Glucose 79 Calcium 7.8 L D Total Bilirubin 2.5 H AST 217 H ALT 27 Total Protein 6.8 Albumin 2.2 L Lipase 68 Urine Opiates Screen POSITIVE H Ur Buprenorphine Scrn Not Detected Ur Oxycodone Screen Not Detected Urine Methadone Screen Positive H Urine Fentanyl Screen Not Detected Ur Barbiturates Screen POSITIVE H Ur Phencyclidine Scrn Not Detected Ur Amphetamines Screen Not Detected U Benzodiazepines Scrn Not Detected Urine Cocaine Screen Not Detected U Marijuana (THC) Screen Not Detected Discharge Plan Discharge Anticipated Discharge Date/Time: 04/18/24 13:04 Patient Disposition: Home, Self-Care Discharge Diagnosis: Upper GI bleed secondary to gastritis Referrals: Carlee Dubois MD [Primary Care Provider] - 1 Week Discharge Medications: New omeprazole 20 mg capsule,delayed release(DR/EC) 20 mg PO BID Qty: 60 2RF Continued methadone [Methadone Intensol] 10 mg/mL Concentrate 50 mg PO DAILY Discharge Orders: Discharge Order (Routine); Ordered 04/18/24 Ordered By: Andres Mackey Diet: Advance to usual diet Activity on Discharge: As tolerated Stand Alone Forms: Patient Portal Discharge page Print Language: [place] Care Plan Goals: Absolutely no alcohol Health Concerns: Continue methadone daily as prior to hospitalization. Omeprazole 20 mg twice daily has been added. Please take this for a total of 3 months Plan of Treatment: Follow up with the PCP next available Assessment: See discharge summary
--- NOTE | 2024-04-18 13:38 | MHC.CM.PN ---
DP: PT HAS BEEN MEDICALLY CLEARED FOR DC HOME, NO SERVICES. PT HAS OWN RIDE HOME
[2024-04-18 13:44] VITALS: BP 103/56; PULSE 78; RESP 18; TEMP 36.6; O2SAT 93
[2024-04-18] MEDS: methADONE HCl 20 MG/2 ML ORAL.CONC 50 MG PO (13:57)
[2024-04-18 14:10] LABS: Alkaline Phosphatase 184 U/L (39-117)
== END 2024-04-18 14:14 | disposition home or self-care (01) | DRG 241 ==
LOC: HO.ED 17:46 → HO.EDOVER 18:35 → HO.S3 04-17 14:51
PROVIDERS: Registered Nurse Emergency; Admitting Provider Hospitalist; Emergency Provider Emergency Medicine Emergency Medical Services; PCP Internal Medicine; Visit Provider Hospitalist
DX: K29.21 Alcoholic gastritis with bleeding (principal); F10.10 Alcohol abuse, uncomplicated; F11.20 Opioid dependence, uncomplicated; F17.210 Nicotine dependence, cigarettes, uncomplicated; Z71.6 Tobacco abuse counseling; F19.10 Other psychoactive substance abuse, uncomplicated; Y90.4 Blood alcohol level of 80-99 mg/100 ml; Z20.822 Contact with and (suspected) exposure to COVID-19
CPT/HCPCS: 0241U; 36415; 74176; 80053; 80307; 82272; 83690; 83735; 84702; 85025; 85610; 99285; J2270; J2405; J2470; J2560; J3430; J7120

== ENCOUNTER 2024-04-16 18:29 | Outpatient (BNV) | payer OTHER, SELFPAY | END 2024-04-17 12:58 | PROVIDERS: Admitting Provider Hospitalist; Emergency Provider Emergency Medicine Emergency Medical Services; PCP Internal Medicine; Visit Provider Radiology Diagnostic Radiology | DX: R16.2 Hepatomegaly with splenomegaly, not elsewhere classified (principal); R18.8 Other ascites; D35.02 Benign neoplasm of left adrenal gland | CPT/HCPCS: 74176 ==

== ENCOUNTER → 2024-04-16 18:29 | Outpatient (BNV) | payer OTHER, SELFPAY | PROVIDERS: Admitting Provider Hospitalist; Emergency Provider Emergency Medicine Emergency Medical Services; PCP Internal Medicine; Visit Provider Hospitalist | DX: K29.21 Alcoholic gastritis with bleeding (principal) | CPT/HCPCS: 99223; 99233; 99239 ==

== ENCOUNTER 2024-05-07 10:21 | Inpatient (IN) | payer OTHER, SELFPAY ==
--- NOTE | ~2024-05-07 | US_ITS ---
CLINICAL HISTORY: abnl LFTs, low H H US abdomen limited Comparison: CT/SR - CT ABDOMEN PELVIS WO IV CON - 04/17/24 12:58 EST Findings: Enlarged liver with small amount of ascites. Suggestion of slightly nodular liver contour raising concern for cirrhosis. Mildly distended but otherwise normal gallbladder. No gallbladder wall thickening. No biliary ductal dilatation. Right kidney normal. Pancreas normal. IMPRESSION: Hepatomegaly with a slightly nodular hepatic contour raising concern for cirrhosis. Small volume ascites may be related. This document has been electronically signed by: Hill Souza MD on 05/07/2024 21:20:41
--- NOTE | ~2024-05-07 | CT_ITS ---
CLINICAL HISTORY: pain, liver failure, biliary obstruction CT abdomen and pelvis with contrast Comparison: 04/17/2024 ,CT/[facility]/SR - CT ABDOMEN PELVIS W IV CON - 03/31/24 13:38 EST Findings: The lung bases are clear. The spleen is enlarged measuring 16 cm in length. Right adrenal gland is normal. Within the left adrenal gland there is a low-attenuation nodule consistent with an adrenal adenoma measuring 1.9 cm. The pancreas, gallbladder and kidneys are unremarkable. There is no hydronephrosis. The liver is enlarged and slightly heterogeneous. Portal vein is patent. No intrahepatic biliary dilatation. No bowel obstruction, pneumoperitoneum, or pneumatosis. Previously seen right colonic wall thickening is less apparent on today's study. Diffuse body wall anasarca. There is an IUD within the uterus in expected position. Ovaries are unremarkable. Moderate ascites within the abdomen. The bones are intact. IMPRESSION: 1. Hepatosplenomegaly with moderate ascites. This document has been electronically signed by: Bhargav Proctor MD on 05/07/2024 23:30:47
[2024-05-07 10:32] VITALS: BP 120/67; PULSE 82; RESP 22; TEMP 37.2; O2SAT 96; BMI 34.8
[2024-05-07 10:56] LABS: MANUAL DIFF FLAG NO
[2024-05-07 11:01] LABS: Basophils Percent Auto 0.3 % (0-2); Eosinophils Percent Auto 0.5 % (0-4); Hemoglobin 7.3 g/dl (12.0-16.0); Imm Gran Abs Auto 0.03 X10*3/uL (0.00-0.03); Imm Gran Pct Auto 0.5 % (0.0-0.4); Lymphocytes Absolute Auto 0.7 X10*3/uL (1.2-4.9); Lymphocytes Percent Auto 11.2 % (20-40); Mean Corpuscular HGB Conc 33.2 g/dl (31.0-35.0); Mean Corpuscular Hemoglobin 30.7 pg (27.0-33.0); Mean Corpuscular Volume 92.4 fL (80.0-98.0); Mean Platelet Volume 11.1 fL (9.4-12.3); Monocytes Absolute Auto 0.5 X10*3/uL (0.1-1.2); Neutrophils Percent Auto 79.5 % (45-73); Platelet Count 138 X10*3/uL (160-400); Red Blood Count 2.38 X10*6/uL (4.20-5.50); Red Cell Distribution Width 16.6 % (11.0-16.0); White Blood Count 6.3 X10*3/uL (4.8-10.8)
[2024-05-07 11:15] LABS: Alanine Aminotransferase 43 U/L (0-31); Albumin Level 2.7 g/dL (3.5-5.0); Alkaline Phosphatase 174 U/L (39-117); Anion Gap 10 (12-20); Aspartate Amino Transferase 331 U/L (5-31); Bilirubin Direct 1.7 mg/dL (0.0-0.5); Bilirubin Total 2.4 mg/dL (0.0-1.0); Blood Urea Nitrogen 3 mg/dL (9-16); Calcium 7.7 mg/dL (8.4-10.2); Carbon Dioxide 23 mmol/L (22-29); Chloride 101 mmol/L (96-108); Creatinine Clr Calc Pharmacy 142.5; Estimated Glomerular Filt Rate > 60; Ethanol < 10 mg/dL; Glucose Random 118 mg/dL (60-115); Lipase 28 U/L (8-78); Potassium 4.3 mmol/L (3.3-5.1); Sodium 130 mmol/L (135-145); Total Protein 7.8 g/dL (6.5-8.0)
[2024-05-07 11:59] LABS: Appearance Urine Clear; Color Urine Dark Yellow; Glucose Urine UA Negative (Negative); Leukocyte Esterase Urine Trace (Negative); Nitrite Urine Negative (Negative); UMIC TRIGGER UACC YES; Urine Blood Moderate (2+) (Negative); Urine Ketones Trace mg/dL (Negative); Urine Protein 30 (1+) mg/dL (Neg-Trace)
[2024-05-07 12:00] LABS: UPreg QC Valid YES; Urine Pregnancy NEGATIVE (NEGATIVE)
[2024-05-07 12:10] LABS: Bacteria Urine None Seen (None Seen); Hyaline Casts Urine 0-2 /LPF (0-2); WBC Urine 0-5 /HPF (0-5)
[2024-05-07 21:31] VITALS: BP 121/63; PULSE 88; RESP 18; TEMP 38.2; O2SAT 97
--- NOTE | 2024-05-07 21:47 | PC.NURSE ---
Confirmed Methadone dose with [facility] STEP[facility] Moya. Spoke with staff member Favio at . Methadone 50mg, last dose on 04/30/2024 at 9:04am, was given take-home Methadone good for 05/01/2024 to 05/07/2024 (same dose). Confirmed at 21:47 by phone. JOE Mckeon aware. Methadone paperwork filled out and placed into patient's chart.
[2024-05-07 21:51] LABS: INTERNATIONAL NORM RATIO 1.5 (0.9-1.1); Prothrombin Time 17.6 SEC (10.9-12.4)
--- NOTE | 2024-05-07 22:23 | HE.PHANOTE ---
Re Methadone Pt receives 50mg from [facility] in [place]. Last there on 05/01 where they received take home bottles to last until 05/07. Did not take 05/07 dose yet.
[2024-05-07] MEDS: cefTRIAXone sodium 2 GM VIAL IVPUSH (22:28)
[2024-05-07 22:30] LABS: Lactic Acid 1.4 mmol/L (0.5-2.0)
[2024-05-07] MEDS: methADONE HCl 20 MG/2 ML ORAL.CONC 50 MG PO (22:49)
[2024-05-07] MEDS: Lidocaine HCl 1%/Epi 1:100,000 10 ML VIAL INFILTRATI (22:50)
[2024-05-07] MEDS: LORazepam 2 MG/ML VIAL IVPUSH (22:50)
[2024-05-07] MEDS: iohexoL 350 MG/ML 100 ML INFUS..BTL 85 ML IV (22:50)
[2024-05-07 22:53] LABS: Influenza A PCR POSITIVE (Negative); Influenza B PCR NEGATIVE (Negative); Resp Syncy Virus RNA Qual PCR NEGATIVE (Negative); SARS COV2 PCR INHOUSE NEGATIVE (Negative)
--- NOTE | 2024-05-07 23:07 | PC.NURSE ---
Periotoneal fluid collected and sent for analysis. Obtained by JOE Cavazos at bedside.
--- NOTE | 2024-05-07 23:12 | ED.GENADULT ---
HPI - General Adult General Chief complaint: General Medical Stated complaint: Swollen Stomach Nausea Time Seen by Provider: 05/07/24 20:46 Source: patient Limitations: no limitations History of Present Illness ED Provider: Concepcion Cavazos PA-C HPI narrative: 38-year-old female with a history of alcohol use disorder, opioid use disorder on methadone , known cirrhosis, prior GI bleed, presents with abdominal pain. Patient states she has had progressive distention of her abdomen over the past 3 weeks. Associated constipation, hematemesis. Patient states she has also developed cough and cold symptoms with chills over the past day. Patient last drank alcohol 3 weeks ago. Her most recent hospital admission was April 16. Patient was never had paracentesis. Related Data Home Medications ?Medication ?Instructions ?Recorded ?Confirmed methadone 10 mg/mL oral 50 mg PO DAILY 03/31/24 05/07/24 concentrate (Methadone Intensol) Allergies Allergy/AdvReac Type Severity Reaction Status Date / Time No Known Allergies Allergy Verified 05/07/24 10:36 Review of Systems Review of Systems: Yes all other systems are reviewed and are negative Constitutional: Constitutional: Reports chills, Reports fatigue, Denies fever(s) and Reports malaise Cardiovascular: Cardiovascular: Denies chest pain and Reports dyspnea Respiratory: Respiratory: Reports dyspnea Gastrointestinal: Gastrointestinal: Reports abdominal pain, Reports coffee ground emesis, Reports constipation, Reports nausea and Reports vomiting Endocrine: Endocrine: Reports fatigue PMFSH Past Medical History Attestation statement: The following information was validated with the patient. Medical History Alcohol use disorder Substance abuse Alcohol abuse Anxiety Depression Social History Social History Household Members: Significant Other Housing: Apartment Do you presently have visiting nurse or other home services: No Unable to assess alcohol history related to: Unknown Alcohol intake: former Patient Tobacco Use Status: Former Tobacco user Tobacco use type: Cigarette Cigarette Packs Per Day: 0.5 Cigarettes Per Day: 10.0 Smoked in Last 30 Days: No Second Hand Smoke Exposure: No Use of substances other than those prescribed or required for medical reasons: No Substance Use Type: Crack/Cocaine, Heroin and IV Drugs Advance Directives: No Advance Directives Information Provided: No Do you have a plan to hurt others: No Plan Nutrition Risks: Gastrointestinal Malabsorption Patient : No service: No Physical Exam ED Vital Signs: Vital Signs - 24 hr 05/07/24 21:31 05/07/24 23:14 05/08/24 00:24 Temperature 100.8 F H 100.9 F H 100.3 F Pulse Rate 88 91 91 Respiratory Rate 18 20 18 Blood Pressure 121/63 108/61 106/59 L Pulse Oximetry 97 93 92 Oxygen Delivery Method Room Air Room Air Room Air Oxygen Flow Rate 05/08/24 00:34 05/08/24 00:35 05/08/24 00:50 Temperature 100.3 F 100.0 F Pulse Rate 91 87 88 Respiratory Rate 18 18 20 Blood Pressure 106/59 L 112/69 109/61 Pulse Oximetry 92 Oxygen Delivery Method Room Air Oxygen Flow Rate 05/08/24 00:51 05/08/24 01:05 Temperature 100.0 F Pulse Rate 88 88 Respiratory Rate 20 24 H Blood Pressure 109/61 113/73 Pulse Oximetry 95 Oxygen Delivery Method Nasal Cannula Oxygen Flow Rate 2 BMI result Body Mass Index 34.8 Const Other: Alert, anxious, tearful appears older than stated age Orientation/consciousness: patient oriented x3 Cardio Other: Normal peripheral perfusion GI Other: Abdomen is grossly distended and tympanic, generalized tenderness to palpation Skin Other: Warm dry no rash Neuro General: patient oriented x3, no focal motor deficits and CN's II-XI intact bilaterally Psych Other: Anxious, tearful, cooperative Course Reevaluation(s) Reevaluation #1: on 05/07 sepsis identified at this time, the patient was febrile, we will be obtaining blood cultures, lactic acid, starting empiric ceftriaxone. The patient's blood pressure is normotensive, she does not require the weight based IV fluid therapy. Time: 22:28 Medications Administered Generic Name Dose Route Start Last Admin Trade Name Freq PRN Reason Stop Dose Admin Acetaminophen 650 mg 05/08/24 01:35 05/08/24 03:34 Acetaminophen 325 Mg Tablet PO 650 mg Q6H PRN Administration Pain, Mild 1-3,fever,headache Folic Acid 1 mg 05/08/24 09:00 05/08/24 09:18 Folic Acid 1 Mg Tablet PO Not Given DAILY BRITTANIE Furosemide 40 mg 05/08/24 09:45 05/08/24 11:26 Furosemide 40 Mg Tablet PO 40 mg DAILY BRITTANIE Administration Protocol Lactulose 20 gm 05/08/24 06:20 05/08/24 16:29 Lactulose 20 Gm/30 Ml Solution PO 20 gm TID BRITTANIE Administration Methadone HCl 50 mg 05/08/24 13:00 05/08/24 15:07 Methadone Hcl 20 Mg/2 Ml Oral.Conc PO 50 mg DAILY BRITTANIE Administration Oseltamivir Phosphate 75 mg 05/08/24 07:00 05/08/24 09:18 Oseltamivir Phosphate 75 Mg Capsule PO 05/12/24 19:01 Not Given Q12H BRITTANIE Pantoprazole Sodium 40 mg 05/08/24 01:35 05/08/24 02:40 Pantoprazole Sodium 40 Mg/10 Ml Vial IVPUSH 40 mg BID@0630,1630 BRITTANIE Administration Sodium Chloride 3 ml 05/08/24 08:00 05/08/24 16:46 0.9 % Sodium Chloride Flush 3 Ml Syringe IVFLUSH Not Given QSHIFT BRITTANIE Spironolactone 100 mg 05/08/24 09:45 05/08/24 11:27 Spironolactone 25 Mg Tablet PO 100 mg DAILY BRITTANIE Administration Protocol Thiamine HCl 100 mg 05/08/24 09:00 05/08/24 09:18 Thiamine Hcl 100 Mg Tablet PO Not Given DAILY BRITTANIE Discontinued Medications Generic Name Dose Route Start Last Admin Trade Name Freq PRN Reason Stop Dose Admin Ceftriaxone Sodium 2 gm 05/07/24 21:55 05/07/24 22:28 Ceftriaxone Sodium 2 Gm Vial IVPUSH 05/07/24 21:56 2 gm ONCE ONE Administration Octreotide Acetate 500 mcg/ 501 mls @ 50.1 mls/hr 05/08/24 01:45 05/08/24 09:56 Sodium Chloride IVCONT Infused .Q10H BRITTANIE Infusion 50 MCG/HR Iohexol 85 ml 05/07/24 22:49 05/07/24 22:50 Iohexol 350 Mg/Ml 100 Ml Infus..Btl IV 05/07/24 22:50 85 ml ONCE ONE Administration Lidocaine/Epinephrine 10 ml 05/07/24 22:43 05/07/24 22:50 Lidocaine Hcl 1%/Epi 1:100,000 10 Ml Vial INFILTRATI 05/07/24 22:44 10 ml ONCE ONE Administration Lorazepam 2 mg 05/07/24 22:29 05/07/24 22:50 Lorazepam 2 Mg/Ml Vial IVPUSH 05/07/24 22:30 2 mg ONCE ONE Administration Methadone HCl 50 mg 05/07/24 22:26 05/07/24 22:49 Methadone Hcl 20 Mg/2 Ml Oral.Conc PO 05/07/24 22:27 50 mg ONCE ONE Administration Octreotide Acetate 50 mcg 05/08/24 01:35 05/08/24 02:39 Octreotide Acetate 100 Mcg/Ml Ampul IVPUSH 05/08/24 01:36 50 mcg ONCE ONE Administration Procedures Procedure Narrative Procedure Narrative: Ultrasound-guided IV 18 gauge 1-3/4 inch IV placed in right upper extremity, adequate blood return, flushes well secured with Tegaderm. Paracentesis Time Out Performed: No Local Anesthetic: lidocaine 1% Amount of anesthesia used (mL): 7 Fluid: other (Yellow and hazy) Post Procedure Exam: awake, alert Patient Tolerated Procedure: well Complications: none Medical Decision Making Medical Decision Making MDM Narrative: 38-year-old female with a history of alcohol use disorder, opioid use disorder on methadone , known cirrhosis, prior GI bleed, presents with abdominal pain. Patient states she has had progressive distention of her abdomen over the past 3 weeks. Associated constipation, hematemesis. Patient states she has also developed cough and cold symptoms with chills over the past day. Patient last drank alcohol 3 weeks ago. Her most recent hospital admission was April 16. Patient was never had paracentesis. Problem: Known cirrhosis and suspect fever, GI bleed, History: Per patient I have considered the following differential diagnoses: Upper GI bleed, new ascites, SBP, biliary obstruction, cholangitis, viral syndrome, sepsis, anemic requiring transfusion Plan: Screening labs including LFTs were obtained from triage, an ultrasound of the right upper quadrant was obtained as well. Given the extensive size of her abdomen, with a likely large volume ascites I would have obtain a CT scan, she does have worsening liver function, I want to rule out associated biliary obstruction. Ordering the CT scan. The patient also spiked a temperature, we are concerned for sepsis at this time, obtaining blood cultures, lactic acid, starting empiric ceftriaxone. I am concerned for SBP, I will be obtaining a diagnostic tap. This maybe viral as well, adding a viral panel. In regard to the GI bleeding, I have yet to witnessed this, her symptoms are subjective at this time. We are ordering the patient's methadone we verified her dose, I am also giving her Ativan for her anxiety and emotional distress at this time. Patient was also critically anemic, she will require blood transfusion, we will consent. I have independently reviewed the following tests: Labs: No overall leukocytosis, left shift noted, critical anemia at 7.3 and 22 respectively, LFTs have increased, sodium is low, no additional electrolyte abnormality, lactic is 1.4, ethanol negative, viral panel positive for influenza A Ultrasound right upper quadrant:IMPRESSION: Hepatomegaly with a slightly nodular hepatic contour raising concern for cirrhosis. Small volume ascites may be related. This document has been electronically signed by: Hill Souza MD on 05/07/2024 21:20:41 CT abdomen and pelvis:he spleen is enlarged measuring 16 cm in length. Right adrenal gland is normal. Within the left adrenal gland there is a low-attenuation nodule consistent with an adrenal adenoma measuring 1.9 cm. The pancreas, gallbladder and kidneys are unremarkable. There is no hydronephrosis. The liver is enlarged and slightly heterogeneous. Portal vein is patent. No intrahepatic biliary dilatation. No bowel obstruction, pneumoperitoneum, or pneumatosis. Previously seen right colonic wall thickening is less apparent on today's study. Diffuse body wall anasarca. There is an IUD within the uterus in expected position. Ovaries are unremarkable. Moderate ascites within the abdomen. The bones are intact. IMPRESSION: 1. Hepatosplenomegaly with moderate ascites. This document has been electronically signed by: Bhargav Proctor MD on 05/07/2024 23:30:47 Lab Data 05/08/24 05:50 05/08/24 05:50 Labs: Lab Results 05/07/24 05/07/24 05/07/24 Range/Units 10:52 11:53 21:38 WBC 6.3 (4.8-10.8) X10*3/uL RBC 2.38 L (4.20-5.50) X10*6/uL Hgb 7.3 L (12.0-16.0) g/dl Hct 22.0 L (37.0-47.0) % MCV 92.4 (80.0-98.0) fL MCH 30.7 (27.0-33.0) pg MCHC 33.2 (31.0-35.0) g/dl RDW 16.6 H (11.0-16.0) % Plt Count 138 L (160-400) X10*3/uL MPV 11.1 (9.4-12.3) fL Immature Gran % (Auto) 0.5 H (0.0-0.4) % Neut % (Auto) 79.5 H (45-73) % Lymph % (Auto) 11.2 L (20-40) % [place] % (Auto) 8.0 (2-11) % Eos % (Auto) 0.5 (0-4) % Baso % (Auto) 0.3 (0-2) % Lymph # (Auto) 0.7 L (1.2-4.9) X10*3/uL [place] # (Auto) 0.5 (0.1-1.2) X10*3/uL Eos # (Auto) 0.0 (0.0-0.4) X10*3/uL Baso # (Auto) 0.0 (0.0-0.2) X10*3/uL Abs Immat Gran (auto) 0.03 (0.00-0.03) X10*3/uL Absolute Neuts (auto) 5.0 (2.0-8.3) x10*3/uL Absolute Nucleated RBC 0.000 (0.0-0.012) X10*3/uL Nucleated RBC % (auto) 0.0 (0.0-0.2) /100WBC PT 17.6 H (10.9-12.4) SEC INR 1.5 H (0.9-1.1) Sodium 130 L (135-145) mmol/L Potassium 4.3 (3.3-5.1) mmol/L Chloride 101 (96-108) mmol/L Carbon Dioxide 23 (22-29) mmol/L Anion Gap 10 L (12-20) BUN 3 L (9-16) mg/dL Creatinine 0.53 (0.5-1.4) mg/dL Estim Creat Clear Calc 142.5 Estimated GFR > 60 Random Glucose 118 H (60-115) mg/dL Lactic Acid (0.5-2.0) mmol/L Calcium 7.7 L (8.4-10.2) mg/dL Total Bilirubin 2.4 H (0.0-1.0) mg/dL Direct Bilirubin 1.7 H (0.0-0.5) mg/dL AST 331 H (5-31) U/L ALT 43 H (0-31) U/L Alkaline Phosphatase 174 H (39-117) U/L Ammonia (13-55) umol/L Total Protein 7.8 (6.5-8.0) g/dL Albumin 2.7 L (3.5-5.0) g/dL Lipase 28 (8-78) U/L Urine Color Dark Yellow Urine Appearance Clear Urine pH 6.0 (5.0-9.0) Ur Specific [place] 1.020 (1.005-1.025) Urine Protein 30 (1+) H (Neg-Trace) mg/dL Urine Glucose (UA) Negative (Negative) mg/dL Urine Ketones Trace (Negative) mg/dL Urine Blood Moderate (2+) H (Negative) Urine Nitrite Negative (Negative) Ur Leukocyte Esterase Trace H (Negative) Urine RBC 3-5 H (0-2) /HPF Urine WBC 0-5 (0-5) /HPF Ur Squamous Epith Cells 6-10 (0-2) /HPF Urine Bacteria None Seen (None Seen) Hyaline Casts 0-2 (0-2) /LPF Urine Test NEGATIVE (NEGATIVE) Peritoneal WBC X10*3/uL Peritoneal RBC X10*6/uL [place] Neutrophils % [place] Lymphocytes % Peritoneal Monocytes % Peritoneal Other Cells % Ethyl Alcohol < 10 mg/dL Influenza Type A (PCR) (Negative) Influenza Type B (PCR) (Negative) RSV RNA Qual (PCR) (Negative) SARS-CoV-2 RNA (RT-PCR) (Negative) Blood Type O Positive Antibody Screen NEGATIVE Crossmatch See Detail 05/07/24 05/07/24 05/07/24 Range/Units 22:10 23:07 23:43 WBC (4.8-10.8) X10*3/uL RBC (4.20-5.50) X10*6/uL Hgb (12.0-16.0) g/dl Hct (37.0-47.0) % MCV (80.0-98.0) fL MCH (27.0-33.0) pg MCHC (31.0-35.0) g/dl RDW (11.0-16.0) % Plt Count (160-400) X10*3/uL MPV (9.4-12.3) fL Immature Gran % (Auto) (0.0-0.4) % Neut % (Auto) (45-73) % Lymph % (Auto) (20-40) % [place] % (Auto) (2-11) % Eos % (Auto) (0-4) % Baso % (Auto) (0-2) % Lymph # (Auto) (1.2-4.9) X10*3/uL [place] # (Auto) (0.1-1.2) X10*3/uL Eos # (Auto) (0.0-0.4) X10*3/uL Baso # (Auto) (0.0-0.2) X10*3/uL Abs Immat Gran (auto) (0.00-0.03) X10*3/uL Absolute Neuts (auto) (2.0-8.3) x10*3/uL Absolute Nucleated RBC (0.0-0.012) X10*3/uL Nucleated RBC % (auto) (0.0-0.2) /100WBC PT (10.9-12.4) SEC INR (0.9-1.1) Sodium (135-145) mmol/L Potassium (3.3-5.1) mmol/L Chloride (96-108) mmol/L Carbon Dioxide (22-29) mmol/L Anion Gap (12-20) BUN (9-16) mg/dL Creatinine (0.5-1.4) mg/dL Estim Creat Clear Calc Estimated GFR Random Glucose (60-115) mg/dL Lactic Acid 1.4 (0.5-2.0) mmol/L Calcium (8.4-10.2) mg/dL Total Bilirubin (0.0-1.0) mg/dL Direct Bilirubin (0.0-0.5) mg/dL AST (5-31) U/L ALT (0-31) U/L Alkaline Phosphatase (39-117) U/L Ammonia 59 H (13-55) umol/L Total Protein (6.5-8.0) g/dL Albumin (3.5-5.0) g/dL Lipase (8-78) U/L Urine Color Urine Appearance Urine pH (5.0-9.0) Ur Specific [place] (1.005-1.025) Urine Protein (Neg-Trace) mg/dL Urine Glucose (UA) (Negative) mg/dL Urine Ketones (Negative) mg/dL Urine Blood (Negative) Urine Nitrite (Negative) Ur Leukocyte Esterase (Negative) Urine RBC (0-2) /HPF Urine WBC (0-5) /HPF Ur Squamous Epith Cells (0-2) /HPF Urine Bacteria (None Seen) Hyaline Casts (0-2) /LPF Urine Test (NEGATIVE) Peritoneal WBC 0.127 X10*3/uL Peritoneal RBC < 0.002 X10*6/uL [place] Neutrophils 4 % [place] Lymphocytes 22 % Peritoneal Monocytes 29 % Peritoneal Other Cells 45 % Ethyl Alcohol mg/dL Influenza Type A (PCR) POSITIVE A (Negative) Influenza Type B (PCR) NEGATIVE (Negative) RSV RNA Qual (PCR) NEGATIVE (Negative) SARS-CoV-2 RNA (RT-PCR) NEGATIVE (Negative) Blood Type Antibody Screen Crossmatch Critical Care Time Critical Care Time Critical Care Time: Yes Total Critical Care Time: 30 Attestation: Isis Cavazos PA-C personally performed 30 minutes of critical care time not including the placement of lines and procedures. Discharge Plan Discharge Clinical Impression: Abdominal pain, Ascites, Anemia, Influenza A Patient Disposition: Admitted As Inpatient Interventions: Admission Worksheet (ED) Last Done: 05/08/24 16:40
[2024-05-07 23:14] VITALS: BP 108/61; PULSE 91; RESP 20; TEMP 38.3; O2SAT 93
[2024-05-07 23:26] LABS: MN% 87.3 %; PMN% 12.7 %; WBC Peritoneal Fluid 0.127 X10*3/uL
[2024-05-08] VITALS (24 sets, daily range): BP systolic 97–118; BP diastolic 51–73; PULSE 58–91; RESP 14–24; TEMP 36.6–38.1; O2SAT 91–97
[2024-05-08 00:04] LABS: RBC Peritoneal Fluid < 0.002 X10*6/uL
[2024-05-08 00:05] LABS: BF Shift QC OK YES; Lymphocyte Peritoneal Fl 22 %; Man Diluent Bkgrd OK YES; Monocytes Peritoneal Fl 29 %; Neutrophils Peritoneal Fluid 4 %; Other Peritioneal Fl 45 %
[2024-05-08 00:41] LABS: Ammonia 59 umol/L (13-55)
--- NOTE | 2024-05-08 01:55 | P.HPHOSP_ITS ---
History of Present Illness Date of Service: 05/08/24 Chief Complaint: Abdominal pain and distention This is a 38-year-old female with pertinent history of alcohol use disorder, opioid use disorder on methadone who presents to the emergency department for evaluation of abdominal pain and distention. Patient states she has been having generalized abdominal discomfort which has been ongoing for the last few days. It has been progressive and associated with progressive abdominal distention. This has never happened in the past. Also had 2 episodes of bloody emesis 1 day prior to presentation. Her last alcohol use was about a month ago as per the patient. No fever, chills, chest pain, palpitations, changes in urinary habits. In the emergency department, ultrasound concerning for liver cirrhosis. Patient's hemoglobin found to be 7.3 and was transfused 1 unit PRBC. Also given IV ceftriaxone and diagnostic paracentesis performed. Review of Systems 2 Constitutional: Constitutional: Reports fatigue, Reports lethargy, Reports malaise and Reports weakness Cardiovascular: Cardiovascular: Reports no additional cardiovascular complaints Respiratory: Respiratory: Reports no additional respiratory complaints Gastrointestinal: Gastrointestinal: Reports abdominal pain and Reports hematemesis Genitourinary: Genitourinary: Reports no additional female genitourinary complaints Neurologic: Reports weakness Endocrine: Endocrine: Reports fatigue [facility] History Alcohol use disorder Substance abuse Alcohol abuse Anxiety Depression Social History Household Members: Significant Other Housing: Apartment Do you presently have visiting nurse or other home services: No Unable to assess alcohol history related to: Unknown Alcohol intake: former Patient Tobacco Use Status: Former Tobacco user Tobacco use type: Cigarette Cigarette Packs Per Day: 0.5 Cigarettes Per Day: 10.0 Smoked in Last 30 Days: No Second Hand Smoke Exposure: No Use of substances other than those prescribed or required for medical reasons: No Substance Use Type: Crack/Cocaine, Heroin and IV Drugs Advance Directives: No Advance Directives Information Provided: No Do you have a plan to hurt others: No Plan Nutrition Risks: Gastrointestinal Malabsorption Patient : No service: No Meds Allergies Allergy/AdvReac Type Severity Reaction Status Date / Time No Known Allergies Allergy Verified 05/07/24 10:36 Active Medications: Current Medications Acetaminophen (Acetaminophen 325 Mg Tablet) 650 mg PO Q6H PRN PRN Reason: Pain, Mild 1-3,fever,headache Calcium Carbonate (Calcium Carbonate 750 Mg Tab.Chew) 750 mg PO Q4H PRN PRN Reason: Heartburn Octreotide Acetate 500 mcg/ (Sodium Chloride) 501 mls @ 50.1 mls/hr IVCONT .Q10H BRITTANIE Magnesium Hydroxide (Milk Of Magnesia 30 Ml Oral.Susp) 30 ml PO DAILY PRN PRN Reason: Constipation Melatonin (Melatonin 3 Mg Tablet) 6 mg PO BEDTIME PRN PRN Reason: Insomnia Ondansetron HCl (Ondansetron Hcl 4 Mg/2 Ml Vial) 4 mg IVPUSH Q8H PRN PRN Reason: Nausea and Vomiting Pantoprazole Sodium (Pantoprazole Sodium 40 Mg/10 Ml Vial) 40 mg IVPUSH BID@0630,1630 [facility] Sodium Chloride (0.9 % Sodium Chloride Flush 3 Ml Syringe) 3 ml IVFLUSH QSHIFT BRITTANIE Home Medications ?Medication ?Instructions ?Recorded ?Confirmed ?Last Taken ?Type methadone 10 mg/mL oral 50 mg PO DAILY 03/31/24 05/07/24 05/06/24 History concentrate (Methadone Intensol) Physical Exam 2 Vital Signs and Narrative: Vital Signs: Last Vital Signs Temp 100.0 F 05/08/24 00:51 Pulse 88 05/08/24 00:51 Resp 20 05/08/24 00:51 BP 109/61 05/08/24 00:51 Pulse Ox 92 05/08/24 00:35 O2 Del Method Room Air 05/08/24 00:35 BMI result Body Mass Index 34.8 Middle-aged female lying in bed in no distress Neck supple, no JVD Regular rate and rhythm, S1-S2 heard Regular breath sounds bilaterally, no wheezing or crackles appreciated Abdomen with distention and generalized tenderness, no rigidity Patient is awake, alert and oriented to self, place, time and person ; no focal motor deficit Psych: Normal mood No pedal edema Results Labs 05/07/24 10:52 05/07/24 10:52 Labs: Laboratory Results - last 24 hr 05/07/24 05/07/24 05/07/24 10:52 11:53 21:38 MCV 92.4 MCH 30.7 MCHC 33.2 RDW 16.6 H Plt Count 138 L MPV 11.1 Immature Gran % (Auto) 0.5 H Neut % (Auto) 79.5 H Lymph % (Auto) 11.2 L [place] % (Auto) 8.0 Eos % (Auto) 0.5 Baso % (Auto) 0.3 Lymph # (Auto) 0.7 L [place] # (Auto) 0.5 Eos # (Auto) 0.0 Baso # (Auto) 0.0 Abs Immat Gran (auto) 0.03 Absolute Neuts (auto) 5.0 Absolute Nucleated RBC 0.000 Nucleated RBC % (auto) 0.0 PT 17.6 H INR 1.5 H Anion Gap 10 L Estim Creat Clear Calc 142.5 Estimated GFR > 60 Random Glucose 118 H Lactic Acid Calcium 7.7 L Total Bilirubin 2.4 H Direct Bilirubin 1.7 H AST 331 H ALT 43 H Alkaline Phosphatase 174 H Ammonia Total Protein 7.8 Albumin 2.7 L Lipase 28 Urine Color Dark Yellow Urine Appearance Clear Urine pH 6.0 Ur Specific [place] 1.020 Urine Protein 30 (1+) H Urine Glucose (UA) Negative Urine Ketones Trace Urine Blood Moderate (2+) H Urine Nitrite Negative Ur Leukocyte Esterase Trace H Urine RBC 3-5 H Urine WBC 0-5 Ur Squamous Epith Cells 6-10 Urine Bacteria None Seen Hyaline Casts 0-2 Urine Test NEGATIVE Peritoneal WBC Peritoneal RBC Periton Neutrophils Periton Lymphocytes Peritoneal Monocytes Peritoneal Other Cells Ethyl Alcohol < 10 Influenza Type A (PCR) Influenza Type B (PCR) RSV RNA Qual (PCR) SARS-CoV-2 RNA (RT-PCR) Blood Type O Positive Antibody Screen NEGATIVE Crossmatch See Detail 05/07/24 05/07/24 05/07/24 22:10 23:07 23:43 MCV MCH MCHC RDW Plt Count MPV Immature Gran % (Auto) Neut % (Auto) Lymph % (Auto) [place] % (Auto) Eos % (Auto) Baso % (Auto) Lymph # (Auto) [place] # (Auto) Eos # (Auto) Baso # (Auto) Abs Immat Gran (auto) Absolute Neuts (auto) Absolute Nucleated RBC Nucleated RBC % (auto) PT INR Anion Gap Estim Creat Clear Calc Estimated GFR Random Glucose Lactic Acid 1.4 Calcium Total Bilirubin Direct Bilirubin AST ALT Alkaline Phosphatase Ammonia 59 H Total Protein Albumin Lipase Urine Color Urine Appearance Urine pH Ur Specific [place] Urine Protein Urine Glucose (UA) Urine Ketones Urine Blood Urine Nitrite Ur Leukocyte Esterase Urine RBC Urine WBC Ur Squamous Epith Cells Urine Bacteria Hyaline Casts Urine Test Peritoneal WBC 0.127 Peritoneal RBC < 0.002 Periton Neutrophils 4 Periton Lymphocytes 22 Peritoneal Monocytes 29 Peritoneal Other Cells 45 Ethyl Alcohol Influenza Type A (PCR) POSITIVE A Influenza Type B (PCR) NEGATIVE RSV RNA Qual (PCR) NEGATIVE SARS-CoV-2 RNA (RT-PCR) NEGATIVE Blood Type Antibody Screen Crossmatch Assessment and Plan (1) GI bleed: Status: Acute (2) Ascites: Status: Acute Plan This is a 38-year-old female with pertinent history of alcohol use disorder, opioid use disorder on methadone who presents to the emergency department for evaluation of abdominal pain and distention. #. Acute GI bleed/hematemesis with blood loss anemia: Will admit patient with cardiac monitoring. 1 unit PRBC being transfused in the ER. Initiating IV octreotide, IV Protonix as ultrasound with possible liver cirrhosis. Consulted Gastroenterology, appreciate assistance. Also given IV ceftriaxone in the ER #. Decompensated alcoholic cirrhosis with ascites: Liver ultrasound concerning for cirrhosis, new diagnosis. Appreciate Gastroenterology. Diagnostic paracentesis performed in the ER, PMN< 250. Therapeutic paracentesis in a.m.. Initiating lactulose. Defer diuretics in the setting of low normal blood pressure and possible GI bleed #. Acute hypoxemic respiratory failure and sepsis in the setting of influenza a infection: Currently requiring 2 L supplemental oxygen. Initiating Tamiflu #. Thrombocytopenia in the setting of cirrhosis and alcoholism #. Opioid use disorder on methadone #. Alcohol use disorder: States her last alcohol use was about a month ago. Initiate thiamine, folic acid and monitor patient on LeadiD rec pending DVT prophylaxis: SCDs Full code Admit as inpatient and will require two night minimum hospital stay for close hemodynamic monitoring in a patient with hematemesis, IV octreotide, IV antibiotics, supplemental oxygen (as above), which is not possible in a lesser acute setting. Gastroenterology consult pending Quality Stroke Does the patient have a stroke diagnosis?: No VTE Prior VTE?: No VTE Risk Level:: Medical - moderate - high VTE Device Contraindication: N/A - Device Ordered VTE Drug Contraindication: Treatment Not Indicated
[2024-05-08] MEDS: Octreotide Acetate 100 MCG/ML AMPUL 50 MCG IVPUSH (02:39)
[2024-05-08] MEDS: Octreotide Acetate 500 MCG in 0.9 % Sodium Chloride 500 ML 50.1 MCG IVCONT (02:40)
[2024-05-08] MEDS: Pantoprazole Sodium 40 MG/10 ML VIAL IVPUSH (02:40)
[2024-05-08] MEDS: Acetaminophen 325 MG TABLET 650 MG PO (03:34)
--- NOTE | 2024-05-08 03:37 | PC.NURSE ---
medicated for fever.
--- NOTE | 2024-05-08 03:39 | PC.NURSE ---
Took over care from COREY Lamas at 3:30am
[2024-05-08 06:04] LABS: MANUAL DIFF FLAG NO
[2024-05-08 06:14] LABS: Anion Gap 12 (12-20); Blood Urea Nitrogen 4 mg/dL (9-16); Calcium 7.8 mg/dL (8.4-10.2); Carbon Dioxide 23 mmol/L (22-29); Chloride 101 mmol/L (96-108); Creatinine Clr Calc Pharmacy 142.5; Estimated Glomerular Filt Rate > 60; Glucose Random 81 mg/dL (60-115); Potassium 4.6 mmol/L (3.3-5.1); Sodium 131 mmol/L (135-145)
[2024-05-08 06:18] LABS: Basophils Percent Auto 0.5 % (0-2); Eosinophils Percent Auto 0.5 % (0-4); Hematocrit 21.8 % (37.0-47.0); Hemoglobin 7.2 g/dl (12.0-16.0); Imm Gran Abs Auto 0.01 X10*3/uL (0.00-0.03); Imm Gran Pct Auto 0.2 % (0.0-0.4); Lymphocytes Absolute Auto 0.6 X10*3/uL (1.2-4.9); Lymphocytes Percent Auto 13.9 % (20-40); Mean Corpuscular Volume 90.8 fL (80.0-98.0); Mean Platelet Volume 11.6 fL (9.4-12.3); Monocytes Absolute Auto 0.4 X10*3/uL (0.1-1.2); Monocytes Percent Auto 9.9 % (2-11); Neutrophils Absolute Auto 3.3 x10*3/uL (2.0-8.3); Platelet Count 126 X10*3/uL (160-400); Red Cell Distribution Width 16.6 % (11.0-16.0); White Blood Count 4.3 X10*3/uL (4.8-10.8)
[2024-05-08] MEDS: Lactulose 20 GM/30 ML SOLUTION PO ×3 (06:34→20:15)
--- NOTE | 2024-05-08 06:34 | PC.NURSE ---
medicated per mar.
[2024-05-08 08:22] LABS: Alanine Aminotransferase 44 U/L (0-31); Albumin Level 2.5 g/dL (3.5-5.0); Alkaline Phosphatase 159 U/L (39-117); Aspartate Amino Transferase 333 U/L (5-31); Bilirubin Direct 1.6 mg/dL (0.0-0.5); Bilirubin Total 2.3 mg/dL (0.0-1.0); Total Protein 7.2 g/dL (6.5-8.0)
--- NOTE | 2024-05-08 09:18 | PC.NURSE ---
Pt resting quietly in room; denies pain or hemoptysis at this time; pt remains NPO pending paracentesis today
--- NOTE | 2024-05-08 09:40 | PHA.MEDREC ---
Addendum entered by Camryn Devine RPh 05/08/24 09:46: Reviewed by [facility]. Original Note: Pharmacy Consult ? Medication Reconciliation Pharmacy has completed the medication reconciliation. Spoke to patient to confirm med list. Patient states she only takes Methadone 50 mg daily from [facility] in [place], last dose was Sunday.
--- NOTE | 2024-05-08 10:27 | CONS_ITS ---
DATE OF SERVICE: 05/08/2024 REASON FOR CONSULTATION: Alcoholic cirrhosis with ascites and gastritis. HISTORY OF PRESENT ILLNESS: The patient is a pleasant 38-year-old woman who was admitted to the hospital after presenting to the emergency room yesterday with complaints of abdominal distention. She has been hospitalized recently with upper GI bleeding and underwent upper endoscopy earlier last month, which documented gastritis. She was prescribed proton pump inhibitors, but has not been taking these at home. She had no varices identified. She has a history of alcohol abuse, but states she has been abstinent for approximately 3 weeks. A blood alcohol level on admission was reported as less than 10. In the emergency department, she was evaluated with laboratory studies documenting a hematocrit of 22, which was basically unchanged from her previous hematocrit on discharge, last in March. She did receive 1 unit of packed red blood cells and her hematocrit this morning is stable at 21.8. There has been no bleeding overnight, and she has had no melena. She does report flecks of blood when she vomits sometimes. PAST MEDICAL HISTORY: 1. Gastritis. 2. Alcoholic liver disease with cirrhosis. 3. Anxiety/depression. CURRENT MEDICATIONS: Her current medication list is reviewed in the chart. ALLERGIES: THERE ARE NONE REPORTED. FAMILY HISTORY: This is reviewed with the patient and is noncontributory. SOCIAL HISTORY: She states abstinence as above. She has a history of opiate use and is on methadone. REVIEW OF SYSTEMS: SKIN: No pruritus. HEENT: Negative. CARDIOPULMONARY: No shortness of breath or chest pain. GASTROINTESTINAL: As above. GENITOURINARY: Negative. NEUROPSYCHIATRIC: Negative. PHYSICAL EXAMINATION: GENERAL: Shows a pleasant female, sitting comfortably in bed. VITAL SIGNS: Reviewed in the electronic medical record and are stable. SKIN: Anicteric. Multiple spider angiomas are noted across the upper chest. HEENT: Shows no scleral icterus. NECK: Without lymphadenopathy or thyromegaly. LUNGS: Clear. HEART: Shows a regular rate and rhythm. S1, S2. No murmur. ABDOMEN: Distended. Bowel sounds are present. There is no focal guarding, tenderness, or rebound. EXTREMITIES: Show trace edema. She appears mildly tremulous. DIAGNOSTIC DATA: Imaging studies are reviewed as well as laboratories. Her CT scan appears to show moderate ascites. She has been scheduled for paracentesis and did have a diagnostic tap on admission, which was not consistent with SBP. IMPRESSION: Alcoholic liver disease with ascites. I agree with treating her with a proton pump inhibitor because of her gastritis. I told her it is important that when she is discharged that she continue this medication as an outpatient. She does not show signs of any active GI bleeding, and her hematocrit has been relatively stable. She has had no melena. So I do not think repeat endoscopy is necessary at this time. She has no history of varices, and her octreotide can be discontinued. I would recommend starting her on diuretics because of her ascites, and I discussed with her the need to limit salt and fluids. Thank you for asking me to see her. I will follow her in the hospital with you. MD SANGEETHA Dixon/CLAUDIA / [phone]
--- NOTE | 2024-05-08 10:44 | PC.NURSE ---
Second unit of ordered RBC's started
--- NOTE | 2024-05-08 11:04 | PC.NURSE ---
15 minute vs WNL and no adverse reaction noted
[2024-05-08] MEDS: Furosemide 40 MG TABLET PO (11:26)
[2024-05-08] MEDS: Spironolactone 25 MG TABLET 100 MG PO (11:27)
--- NOTE | 2024-05-08 12:48 | PM.EVENT ---
Event Note Date of Service: 05/08/24 Event Note: seen and examined this morning follow up for ascites, influenza a awake, alert, reporting abdominal distention This is a 38-year-old female with pertinent history of alcohol use disorder, opioid use disorder on methadone who presents to the emergency department for evaluation of abdominal pain/distention and hematemesis found to have possible cirrhosis and influenza a episode of hematemesis H/H stable from March s/p 1 unit PRBC in ED, additional unit odered seen by GI - no evidence of acute bleed and no history of esophageal varices, rec to stop octreotide continue IV Protonix for now Decompensated alcoholic cirrhosis with ascites: Liver ultrasound concerning for cirrhosis, new diagnosis. seen by GI Diagnostic paracentesis performed in the ER, PMN< 250, not c/w SBP Therapeutic paracentesis pending continue lactulose started on aldactone and lasix by GI follow up LFTs stable Acute hypoxemic respiratory failure and viral sepsis due to influenza a infection continue Tamiflu pancytopenia in the setting of cirrhosis and alcoholism low platelets chronic and due to etoh use Opioid use disorder continue methadone Alcohol use disorder: States her last alcohol use was about a month ago thiamine, folic acid and monitor patient on CIWA hypocalcemia when corrected for low albumin - calcium is 9 DVT prophylaxis: SCDs Full code Admit as inpatient and will require two night minimum hospital stay for close hemodynamic monitoring in a patient with hematemesis, IV octreotide, IV antibiotics, supplemental oxygen (as above), which is not possible in a lesser acute setting Time Spent With Patient Time: Total time managing care of this patient today ____ minutes.
--- NOTE | 2024-05-08 12:56 | MHC.CM.PN ---
SENIOR MEDICAL BILLING SPECIALIST SPOKE WITH PT IN ED PT STATES THAT SHE LIVES WITH FAMILY IN AN APARTMENT SHE RECIEVES NO SERVICES AND USES NO DME HER HCP IS DEVORAH BEAVERS HER PCP IS SILVINA IBARRA INS IS [facility] DCP- HOME NO SERVICES VIA PRIVATE TRANSPORT
[2024-05-08] MEDS: methADONE HCl 20 MG/2 ML ORAL.CONC 50 MG PO (15:07)
[2024-05-08] MEDS: vancomycin/NS 2,000 MG/500 ML PLAST..BAG 250 MG IV (18:17)
--- NOTE | 2024-05-08 18:25 | PHA.PROG ---
Admission Date/Time: May 08, 2024 01:35 Indication: Bacteremia Weight in k.6 kg Adjusted body weight in Kg: [place] body weight in Kg: Obesity Dosing Indication % IBW: Serum Creatinine - Last 168 Hours 05/07/24 05/08/24 10:52 05:50 Creatinine 0.53 0.53 Estimated CrCl and GFR - Last 168 Hours 05/07/24 05/08/24 10:52 05:50 Estim Creat Clear Calc 142.5 142.5 Estimated GFR > 60 > 60 Vancomycin Loading Dose: 2000mg Current Vancomycin Dosing Regimen: 1500mg q12h Vancomycin Monitoring using AUC goal of 400 - 600 range with trough as surrogate marker: 550mg/L Date and Time for next Vancomycin Level to be drawn: 05/09/2024 @1800 Pharmacist Comments on Vancomycin Plan:Blood cultures pending, no mention of infectious process in previous note. Potential to de-escalate if cultures negative. Vancomycin dosing will take advantage of [employer] as a clinical decision support tool that uses Bayesian modeling to calculate individual patient's pharmacokinetic parameters and forecast the patient's drug concentration time course with the target goal AUC 24 range of 400 - 600 mg/L/hr.
[2024-05-08] MEDS: Oseltamivir Phosphate 75 MG CAPSULE PO (20:15)
[2024-05-09 03:52] VITALS: BP 114/63; PULSE 71; RESP 18; TEMP 36.9; O2SAT 95
[2024-05-09] MEDS: Pantoprazole Sodium 40 MG/10 ML VIAL IVPUSH ×2 (05:01→16:30)
[2024-05-09] MEDS: Oseltamivir Phosphate 75 MG CAPSULE PO (05:22)
[2024-05-09 07:15] LABS: Hematocrit 26.1 % (37.0-47.0); Hemoglobin 8.6 g/dl (12.0-16.0); Mean Corpuscular Hemoglobin 30.3 pg (27.0-33.0); Mean Corpuscular Volume 91.9 fL (80.0-98.0); Mean Platelet Volume 11.6 fL (9.4-12.3); Platelet Count 124 X10*3/uL (160-400); Red Blood Count 2.84 X10*6/uL (4.20-5.50); Red Cell Distribution Width 16.4 % (11.0-16.0); White Blood Count 4.2 X10*3/uL (4.8-10.8)
[2024-05-09 07:16] LABS: INTERNATIONAL NORM RATIO 1.5 (0.9-1.1); Prothrombin Time 17.4 SEC (10.9-12.4)
[2024-05-09 07:19] VITALS: BP 101/63; PULSE 71; RESP 18; TEMP 36.4; O2SAT 93
[2024-05-09 07:37] LABS: Alanine Aminotransferase 55 U/L (0-31); Albumin Level 2.5 g/dL (3.5-5.0); Alkaline Phosphatase 167 U/L (39-117); Anion Gap 12 (12-20); Aspartate Amino Transferase 445 U/L (5-31); Bilirubin Direct 1.9 mg/dL (0.0-0.5); Bilirubin Total 2.7 mg/dL (0.0-1.0); Blood Urea Nitrogen 5 mg/dL (9-16); Calcium 7.7 mg/dL (8.4-10.2); Carbon Dioxide 24 mmol/L (22-29); Chloride 99 mmol/L (96-108); Creatinine Clr Calc Pharmacy 125.9; Estimated Glomerular Filt Rate > 60; Glucose Random 81 mg/dL (60-115); Potassium 3.8 mmol/L (3.3-5.1); Sodium 131 mmol/L (135-145); Total Protein 7.5 g/dL (6.5-8.0)
[2024-05-09] MEDS: vancomycin HCL 1,500 MG in 0.9 % Sodium Chloride 500 ML 333.33 MG IV (07:50)
[2024-05-09] MEDS: 0.9 % Sodium Chloride Flush 3 ML SYRINGE IVFLUSH ×2 (07:51→16:30)
[2024-05-09 08:11] LABS: Albumin Peritoneal Fluid 0.6; Total Protein Peritoneal Fluid 1.1
[2024-05-09 08:12] LABS: Glucose Peritoneal Fluid 115; LDH Peritoneal Fluid 39; pH Peritoneal Fluid 7.59
[2024-05-09] MEDS: Spironolactone 25 MG TABLET 100 MG PO (09:02)
[2024-05-09] MEDS: methADONE HCl 20 MG/2 ML ORAL.CONC 50 MG PO (09:03)
[2024-05-09] MEDS: Folic Acid 1 MG TABLET PO (09:03)
[2024-05-09] MEDS: Thiamine HCL 100 MG TABLET PO (09:03)
[2024-05-09] MEDS: Furosemide 40 MG TABLET PO (09:03)
[2024-05-09] MEDS: Lactulose 20 GM/30 ML SOLUTION PO ×2 (09:03→16:29)
[2024-05-09 11:45] VITALS: BP 118/65; PULSE 79; RESP 18; TEMP 37.1; O2SAT 95
--- NOTE | 2024-05-09 13:30 | PM.DS ---
DS: Providers Provider Date of Service: 05/09/24 Date of admission: 05/08/24 01:35 Date of discharge: 05/09/24 Primary care physician: Carlee Dubois MD Consults: 05/08/24 02:17 Consult to Gastroenterology Routine Consulting Provider: Ray Apodaca Reason for consultation: GI bleed, cirrhosis Attending physician on discharge: Asad Sewell Discharging clinician: Breonna Barnett DS: Diagnosis Discharge Diagnosis (1) GI bleed: Status: Acute (2) Ascites: Status: Acute DS: Summary Hospital Course Hospital Course: From H&P on the day of admission This is a 38-year-old female with pertinent history of alcohol use disorder, opioid use disorder on methadone who presents to the emergency department for evaluation of abdominal pain and distention. Patient states she has been having generalized abdominal discomfort which has been ongoing for the last few days. It has been progressive and associated with progressive abdominal distention. This has never happened in the past. Also had 2 episodes of bloody emesis 1 day prior to presentation. Her last alcohol use was about a month ago as per the patient. No fever, chills, chest pain, palpitations, changes in urinary habits. In the emergency department, ultrasound concerning for liver cirrhosis. Patient's hemoglobin found to be 7.3 and was transfused 1 unit PRBC. Also given IV ceftriaxone and diagnostic paracentesis performed. episode of hematemesis H/H stable from March received 2 units of blood. no vomiting since admission. seen by GI - no evidence of acute bleed and no history of esophageal varices, reccommended to stop octreotide, no indication for EGD. Decompensated alcoholic cirrhosis with ascites Liver ultrasound concerning for cirrhosis, new diagnosis. seen by GI and started on Aldactone and Lasix. Ammonia elevated, started on lactulose. Diagnostic paracentesis performed in the ER PMN< 250, not c/w SBP. Therapeutic paracentesis attempted but not enough ascites to drain as per IR. Will need outpatient follow up with GI. LFTs remain elevated, will repeat labs in one week Acute hypoxemic respiratory failure and viral sepsis due to influenza a infection. treated with Tamiflu and weaned off of supplemental oxygen. pancytopenia in the setting of cirrhosis and alcoholism. 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 continued on baseline methadone Alcohol use disorder: last alcohol use was about a month ago. No evidence of alcohol withdrawal hypocalcemia when corrected for low albumin - calcium is 9 Time Attestation Discharge Coordination Time (in mins): 37 Quality: Safe Use of Opioids Does Pt have an Active Cancer Diagnosis on the Problem List?: No Quality: Stroke Does the patient have a stroke diagnosis?: No Physical Exam Vital Signs: Vital Signs: Last Vital Signs Temp 98.8 F 05/09/24 11:45 Pulse 79 05/09/24 11:45 Resp 18 05/09/24 11:45 BP 118/65 05/09/24 11:45 Pulse Ox 95 05/09/24 11:45 O2 Del Method Room Air 05/09/24 11:45 O2 Flow Rate 2 05/09/24 07:19 BMI result Body Mass Index 34.8 Const: General: cooperative, comfortable, no acute distress, alert, awake and Physically active Nutritional Appearance: overweight Orientation/consciousness: patient oriented x3 Resp: Effort & Inspection: normal respiratory effort, able to speak in complete sentences, no respiratory distress and no use of accessory muscles Cardio: Rate: regular rate GI: Other: mild abdominal distention, soft; no guarding no rebound Palpation (GI): Soft to palpation Neuro: Other: no asterixis General: patient oriented x3, moves all extremities and CN's II-XI intact bilaterally Extrem: General: Yes no pedal edema DS: Data Data Completed and Pending Completed studies during hospitalization [Text1]: Procedures Detoxification Services for Substance Abuse Treatment (04/16/24) Excision of Stomach, Pylorus, Via Natural or Artificial Opening Endoscopic, Diagnostic (03/31/24) Labs on day of discharge: Laboratory Results - last 24 hr 05/07/24 05/09/24 23:07 05:45 WBC 4.2 L RBC 2.84 L Hgb 8.6 L Hct 26.1 L MCV 91.9 MCH 30.3 MCHC 33.0 RDW 16.4 H Plt Count 124 L MPV 11.6 Absolute Nucleated RBC 0.000 Nucleated RBC % (auto) 0.0 PT 17.4 H INR 1.5 H Sodium 131 L Potassium 3.8 Chloride 99 Carbon Dioxide 24 Anion Gap 12 BUN 5 L Creatinine 0.60 Estim Creat Clear Calc 125.9 Estimated GFR > 60 Random Glucose 81 Calcium 7.7 L Total Bilirubin 2.7 H Direct Bilirubin 1.9 H AST 445 H ALT 55 H Alkaline Phosphatase 167 H Total Protein 7.5 Albumin 2.5 L Peritoneal pH 7.59 Peritoneal Tot Protein 1.1 Peritoneal Albumin 0.6 Peritoneal LDH 39 Peritoneal Glucose 115 Preliminary micro results at discharge 05/07/24 23:07 Anaerobic Culture - Preliminary Abdominal Fluid No growth to date. Body Fluid Culture - Preliminary No growth to date. 05/07/24 22:10 Blood Culture - Preliminary Blood - Venous No growth after 24 hours. Discharge Plan Discharge Anticipated Discharge Date/Time: 05/09/24 13:36 Patient Disposition: Home, Self-Care Discharge Diagnosis: abdominal ascites Referrals: Carlee Dubois MD [Primary Care Provider] - 1 Week Ray Apodaca MD [Physician] - 1 Week () Discharge Medications: New oseltamivir [Tamiflu] 75 mg Capsule 75 mg PO Q12H Qty: 8 0RF spironolactone 25 mg Tablet 100 mg PO DAILY 90 Days Qty: 360 0RF Protocol: Hold for SBP< HOLD for SBP < : 90 furosemide 40 mg Tablet 40 mg PO DAILY 90 Days Qty: 90 0RF Protocol: Hold for SBP< HOLD for SBP < : 90 lactulose 10 gram/15 mL Solution 20 g PO BID Qty: 1800 0RF folic acid 1 mg Tablet 1 mg PO DAILY 90 Days Qty: 90 0RF thiamine mononitrate (vit B1) 100 mg Tablet 100 mg PO DAILY Qty: 90 0RF omeprazole 20 mg capsule,delayed release(DR/EC) 20 mg PO BID Qty: 60 0RF Continued methadone [Methadone Intensol] 10 mg/mL Concentrate 50 mg PO DAILY Discharge Orders: Discharge Order (Routine); Ordered 05/09/24 Ordered By: Breonna Barnett Activity on Discharge: As tolerated Stand Alone Forms: Patient Portal Discharge page Print Language: Sierra Leonean Other Ambulatory Orders: Liver Panel (Routine) Timeframe: 1 Week Facility: [facility] - Location: Laboratory Ordered By: Breonna Barnett Basic Metabolic Panel (Routine) Timeframe: 1 Week Facility: [facility] - Location: Laboratory Ordered By: Breonna Barnett Care Plan Goals: see below Health Concerns: Ascites Influenza a Anemia Plan of Treatment: Anemia-stable Influenza a-complete course of Tamiflu Ascites-take Lasix and spironolactone as per GI recommendation. Call to schedule follow-up appointment with GI Repeat labs in 1 week Call to schedule follow-up appointment with PCP Take lactulose as prescribed Assessment: See discharge summary
--- NOTE | 2024-05-09 14:32 | P.PNGI_ITS ---
Subjective Subjective Date of Service: 05/09/24 Interval History: Feels somewhat better Critical Care Time (minutes): 0 Physical Exam 2 Vital Signs: Vital Signs: Last Vital Signs Temp 98.8 F 05/09/24 11:45 Pulse 79 05/09/24 11:45 Resp 18 05/09/24 11:45 BP 118/65 05/09/24 11:45 Pulse Ox 95 05/09/24 11:45 O2 Del Method Room Air 05/09/24 11:45 O2 Flow Rate 2 05/09/24 07:19 BMI result Body Mass Index 34.8 Const: General: anxious GI: Other: abdominal distension, no tenderness Objective Data Labs 05/09/24 05:45 05/09/24 05:45 Microbiology Microbiology Results: Microbiology 05/07/24 22:10 Blood - Venous Blood Culture - Final Coag negative Staphylococcus 05/07/24 23:07 Abdominal Fluid Gram Stain - Final 05/07/24 23:07 Abdominal Fluid Anaerobic Culture - Preliminary No growth to date. 05/07/24 23:07 Abdominal Fluid Body Fluid Culture - Preliminary No growth to date. 05/07/24 22:10 Blood - Venous Blood Culture - Preliminary No growth after 24 hours. Procedures Date of Service Date of Service: 05/09/24 Progress Note: A&P Assessment and plan (1) Ascites: Status: Acute Assessment and Plan: paracentesis not done, see notes continue diuretics, keep O>I by 500 ml daily avoid salts, extra fluids. Continue ppi for gastritis, Hct stable. Time Spent With Patient Time: Total time managing care of this patient today ____ minutes. Quality Stroke Does the patient have a stroke diagnosis?: No VTE Prior VTE?: No VTE Risk Level:: Medical - moderate - high VTE Device Contraindication: N/A - Device Ordered VTE Drug Contraindication: Treatment Not Indicated
[2024-05-09 16:00] VITALS: BP 106/56; PULSE 73; RESP 18; TEMP 36.9; O2SAT 94
--- NOTE | 2024-05-09 16:09 | MHC.CM.PN ---
Pt is medically cleared for discharge home self-care, pt has arranged her own transport home.
== END 2024-05-09 17:01 | disposition home or self-care (01) | DRG 720 ==
LOC: HO.ED 20:47 → HO.EDOVER 05-08 01:40 → HO.S3 05-08 16:04
PROVIDERS: Physician Assistant Medical; Admitting Provider Student in an Organized Health Care Education/Training Program; Emergency Provider Emergency Medicine; PCP Internal Medicine; Visit Provider Physician Assistant Medical
DX: A41.89 Other specified sepsis (principal); J96.01 Acute respiratory failure with hypoxia; K70.31 Alcoholic cirrhosis of liver with ascites; D61.818 Other pancytopenia; K92.0 Hematemesis; D69.59 Other secondary thrombocytopenia; F10.20 Alcohol dependence, uncomplicated; F11.20 Opioid dependence, uncomplicated; J10.1 Influenza due to other identified influenza virus with other respiratory manifestations; Z79.899 Other long term (current) drug therapy
CPT/HCPCS: 0241U; 36415; 74177; 76705; 80048; 80076; 80307; 81001; 81003; 81025; 82042; 82140; 82945; 83605; 83615; 83690; 83986; 84157; 85025; 85027; 85610; 86850; 86900; 86901; 86923; 87040; 87070; 87073; 87147; 87205; 89051; 99285; J0696; J2004; J2060; J2354; J2470; J3370; J3371; P9016; Q9967

== ENCOUNTER → 2024-05-07 20:17 | Outpatient (BNV) | payer OTHER, SELFPAY | PROVIDERS: Emergency Provider Emergency Medicine; PCP Internal Medicine; Visit Provider Radiology Diagnostic Radiology | DX: R16.2 Hepatomegaly with splenomegaly, not elsewhere classified (principal); R18.8 Other ascites | CPT/HCPCS: 74177; 76705 ==

== ENCOUNTER → 2024-05-08 01:35 | Outpatient (BNV) | payer OTHER, SELFPAY | PROVIDERS: Admitting Provider Student in an Organized Health Care Education/Training Program; Emergency Provider Emergency Medicine; PCP Internal Medicine; Visit Provider Student in an Organized Health Care Education/Training Program | DX: K92.2 Gastrointestinal hemorrhage, unspecified (principal); R18.8 Other ascites | CPT/HCPCS: 99223; 99499 ==